=== PATIENT | female | born 2000 | race Caucasian/White ===

== ENCOUNTER 2018-01-23 20:50 | Emergency (ER) | payer OTHER ==
[2018-01-23] MEDS ORDERED: SODIUM CHLORIDE 0.9% 1,000 ML IV STA ×2 (22:29)
[2018-01-23] MEDS ORDERED: cefTRIAXone IN SWFI 1,000 MG/10 ML SYRINGE IVP STA (22:31)
[2018-01-23 22:40] LABS: Appearance,Urine Turbid (Clear); Bacteria,Urine Many /hpf; Bilirubin,Urine Negative (Negative); Blood,Urine Moderate (Negative); Color,Urine Yellow; Glucose,Urine (UA) 4+ (Negative); Ketones,Urine Trace (Negative); Leukocyte Esterase,Urine Large (Negative); Mucus,Urine Rare /hpf; Nitrite,Urine Negative (Negative); PH, Urine 6.5 (5.0-8.0); Protein,Urine 2+ (Negative); RBC,Urine 144 /hpf (0-5); Specific Gravity,Urine 1.023 (1.001-1.035); Squamous Epithelial Cell,Urine 19 /hpf (0-4); WBC,Urine >182 /hpf (0-5)
[2018-01-23 23:05] LABS: Basophils % (A) 0 %; Eosinophils # (A) 0.1 k/uL (0-0.7); Eosinophils % (A) 1 %; HCT 39.8 % (34.0-46.0); HGB 13.3 gm/dL (11.4-16.0); Lymphocytes # (A) 2.7 k/uL (1.0-4.8); Lymphocytes % (A) 31 %; MCH 30.4 pg (25.0-35.0); MCHC 33.3 g/dL (31.0-37.0); MCV 91.3 fL (80.0-100.0); Mean Platelet Volume 6.6; Monocytes # (A) 0.6 k/uL (0-1.0); Monocytes % (A) 7 %; Neutrophils # (A) 5.1 k/uL (1.3-7.7); Neutrophils % (A) 59 %; Platelet Count 424 k/uL (150-450); RBC 4.36 m/uL (3.80-5.40); RDW 13.2 % (11.5-15.5); WBC 8.7 k/uL (4.0-11.0)
[2018-01-23 23:16] LABS: INR 0.9 (<1.2); Partial Thromboplastin Time 24.5 sec (22.0-30.0); Prothrombin Time 9.3 sec (9.0-12.0)
[2018-01-23 23:19] LABS: ALT 30 U/L (9-52); AST 21 U/L (14-36); Alkaline Phosphatase 126 U/L (38-126); Amylase 48 U/L (30-110); Anion Gap 14 mmol/L; Blood Urea Nitrogen 14 mg/dL (7-17); Carbon Dioxide 23 mmol/L (22-30); Chloride 104 mmol/L (98-107); Glucose 67 mg/dL (74-99); Lipase 62 U/L (23-300); Potassium 3.7 mmol/L (3.5-5.1); Sodium 141 mmol/L (137-145); Total Bilirubin 0.3 mg/dL (0.2-1.3); Total Protein 6.8 g/dL (6.3-8.2)
--- NOTE | 2018-01-23 23:32 | ED ---
Female Urogenital HPI - General Chief complaint: Urogenital Stated complaint: kidney pain Time Seen by Provider: 01/23/18 21:52 Source: patient, RN notes reviewed, old records reviewed Mode of arrival: ambulatory Limitations: no limitations - History of Present Illness Initial comments: Is a 17-year-old female with a history of type one diabetes presents and emergency department today with CC of dysuria. She reports fever And chills. She takes Motrin prior to arrival. She does report some back pain. Patient Denies the nausea or vomiting. Her blood sugar has been mildly elevated. - Related Data Home Medications Medication Instructions Recorded Confirmed Acetaminophen Tab [Tylenol Tab] 325 mg PO Q4H PRN 01/23/18 01/23/18 Ibuprofen [Motrin Ib] 600 mg PO TID PRN 01/23/18 01/23/18 Insulin Aspart (Niacinamide) 20 - 30 unit SQ TID-W/MEALS 01/23/18 01/23/18 [Fiasp 100 Unit/ml Flextouch] Insulin Degludec [Tresiba 30 unit SQ HS 01/23/18 01/23/18 Flextouch U-100] Previous Rx's Medication Instructions Recorded Phenazopyridine [Pyridium] 200 mg PO TID #9 tablet 01/23/18 Sulfamethox-Tmp 800-160Mg [Bactrim 1 tab PO Q12HR #28 tab 01/23/18 DS 800-160 mg] Allergies Allergy/AdvReac Type Severity Reaction Status Date / Time No Known Allergies Allergy Verified 01/23/18 22:12 Review of Systems ROS Statement: Those systems with pertinent positive or pertinent negative responses have been documented in the HPI. ROS Other: All systems not noted in ROS Statement are negative. Past Medical History Past Medical History: Diabetes Mellitus History of Any Multi-Drug Resistant Organisms: None Reported Past Surgical History: No Surgical Hx Reported Past Psychological History: No Psychological Hx Reported Smoking Status: Never smoker Past Alcohol Use History: None Reported Past Drug Use History: None Reported General Exam - General Exam Comments Initial Comments: This is a pleasant 17 year old female, no distress. Limitations: no limitations General appearance: alert, in no apparent distress Head exam: Present: atraumatic, normocephalic, normal inspection Eye exam: Present: normal appearance, PERRL, EOMI. Absent: scleral icterus, conjunctival injection, periorbital swelling ENT exam: Present: normal exam, mucous membranes moist Neck exam: Present: normal inspection. Absent: tenderness, meningismus, lymphadenopathy Respiratory exam: Present: normal lung sounds bilaterally. Absent: respiratory distress, wheezes, rales, rhonchi, stridor Cardiovascular Exam: Present: regular rate, normal rhythm, normal heart sounds. Absent: systolic murmur, diastolic murmur, rubs, gallop, clicks GI/Abdominal exam: Present: soft, tenderness (suprapubic), normal bowel sounds. Absent: distended, guarding, rebound, rigid Extremities exam: Present: normal inspection, full ROM, normal capillary refill. Absent: tenderness, pedal edema, joint swelling, calf tenderness Back exam: Present: normal inspection, CVA tenderness (R) Psychiatric exam: Present: normal affect, normal mood Skin exam: Present: warm, dry, intact, normal color. Absent: rash Course Vital Signs 01/23/18 01/23/18 21:07 23:51 Temperature 99.1 F 97.9 F Pulse Rate 127 H 108 H Respiratory 18 16 Rate Blood Pressure 159/100 150/75 O2 Sat by Pulse 99 99 Oximetry Medical Decision Making - Medical Decision Making 17-year-old type one diabetic presents with chief of dysuria. She does have fever and chills, complains of back pain. Lab work obtain. Blood culture in urine culture completed. UAs positive UTI. Patient given 2 g of Rocephin. White blood cell count is normal. Patient informed I will discharge her with a prescription for Bactrim for UTI. I discussed she must take all of the anabiotic 's. Discuss with me type one diabetic she could be at risk for worse infection, discussed return parameters. - Lab Data Result diagrams: 01/23/18 22:43 01/23/18 22:43 Lab Results 01/23/18 01/23/18 01/23/18 Range/Units 22:15 22:15 22:43 WBC (4.0-11.0) k/uL RBC (3.80-5.40) m/uL Hgb (11.4-16.0) gm/dL Hct (34.0-46.0) % MCV (80.0-100.0) fL MCH (25.0-35.0) pg MCHC (31.0-37.0) g/dL RDW (11.5-15.5) % Plt Count (150-450) k/uL Neutrophils % % Lymphocytes % % Monocytes % % Eosinophils % % Basophils % % Neutrophils # (1.3-7.7) k/uL Lymphocytes # (1.0-4.8) k/uL Monocytes # (0-1.0) k/uL Eosinophils # (0-0.7) k/uL Basophils # (0-0.2) k/uL PT (9.0-12.0) sec INR (<1.2) APTT (22.0-30.0) sec Sodium 141 (137-145) mmol/L Potassium 3.7 (3.5-5.1) mmol/L Chloride 104 (98-107) mmol/L Carbon Dioxide 23 (22-30) mmol/L Anion Gap 14 mmol/L BUN 14 (7-17) mg/dL Creatinine 0.60 (0.52-1.04) mg/dL Est GFR (CKD-EPI)AfAm >90 (>60 ml/min/1.73 sqM) Est GFR (CKD-EPI)NonAf >90 (>60 ml/min/1.73 sqM) Glucose 67 L (74-99) mg/dL Calcium 10.0 (8.4-10.2) mg/dL Total Bilirubin 0.3 (0.2-1.3) mg/dL AST 21 (14-36) U/L ALT 30 (9-52) U/L Alkaline Phosphatase 126 (38-126) U/L Total Protein 6.8 (6.3-8.2) g/dL Albumin 4.0 (3.5-5.0) g/dL Amylase 48 (30-110) U/L Lipase 62 (23-300) U/L Urine Color Yellow Urine Appearance Turbid H (Clear) Urine pH 6.5 (5.0-8.0) Ur Specific [place] 1.023 (1.001-1.035) Urine Protein 2+ H (Negative) Urine Glucose (UA) 4+ H (Negative) Urine Ketones Trace H (Negative) Urine Blood Moderate H (Negative) Urine Nitrite Negative (Negative) Urine Bilirubin Negative (Negative) Urine Urobilinogen 2.0 (<2.0) mg/dL Ur Leukocyte Esterase Large H (Negative) Urine RBC 144 H (0-5) /hpf Urine WBC >182 H (0-5) /hpf Urine WBC Clumps Many H (None) /hpf Ur Squamous Epith Cells 19 H (0-4) /hpf Urine Bacteria Many H (None) /hpf Urine Mucus Rare H (None) /hpf Urine HCG, Qual Not Detected (Not Detectd) 01/23/18 01/23/18 Range/Units 22:43 22:43 WBC 8.7 (4.0-11.0) k/uL RBC 4.36 (3.80-5.40) m/uL Hgb 13.3 (11.4-16.0) gm/dL Hct 39.8 (34.0-46.0) % MCV 91.3 (80.0-100.0) fL MCH 30.4 (25.0-35.0) pg MCHC 33.3 (31.0-37.0) g/dL RDW 13.2 (11.5-15.5) % Plt Count 424 (150-450) k/uL Neutrophils % 59 % Lymphocytes % 31 % Monocytes % 7 % Eosinophils % 1 % Basophils % 0 % Neutrophils # 5.1 (1.3-7.7) k/uL Lymphocytes # 2.7 (1.0-4.8) k/uL Monocytes # 0.6 (0-1.0) k/uL Eosinophils # 0.1 (0-0.7) k/uL Basophils # 0.0 (0-0.2) k/uL PT 9.3 (9.0-12.0) sec INR 0.9 (<1.2) APTT 24.5 (22.0-30.0) sec Sodium (137-145) mmol/L Potassium (3.5-5.1) mmol/L Chloride (98-107) mmol/L Carbon Dioxide (22-30) mmol/L Anion Gap mmol/L BUN (7-17) mg/dL Creatinine (0.52-1.04) mg/dL Est GFR (CKD-EPI)AfAm (>60 ml/min/1.73 sqM) Est GFR (CKD-EPI)NonAf (>60 ml/min/1.73 sqM) Glucose (74-99) mg/dL Calcium (8.4-10.2) mg/dL Total Bilirubin (0.2-1.3) mg/dL AST (14-36) U/L ALT (9-52) U/L Alkaline Phosphatase (38-126) U/L Total Protein (6.3-8.2) g/dL Albumin (3.5-5.0) g/dL Amylase (30-110) U/L Lipase (23-300) U/L Urine Color Urine Appearance (Clear) Urine pH (5.0-8.0) Ur Specific [place] (1.001-1.035) Urine Protein (Negative) Urine Glucose (UA) (Negative) Urine Ketones (Negative) Urine Blood (Negative) Urine Nitrite (Negative) Urine Bilirubin (Negative) Urine Urobilinogen (<2.0) mg/dL Ur Leukocyte Esterase (Negative) Urine RBC (0-5) /hpf Urine WBC (0-5) /hpf Urine WBC Clumps (None) /hpf Ur Squamous Epith Cells (0-4) /hpf Urine Bacteria (None) /hpf Urine Mucus (None) /hpf Urine HCG, Qual (Not Detectd) Disposition Clinical Impression: UTI (urinary tract infection) Disposition: HOME SELF-CARE Condition: Good Instructions: Urinary Tract Infection in Women (ED) Additional Instructions: Patient advised to follow-up with primary care provider. If any worsening signs or symptoms occur, Patient must return for reevaluation. Take antibiotics as prescribed. Prescriptions: Phenazopyridine [Pyridium] 200 mg PO TID #9 tablet Sulfamethox-Tmp 800-160Mg [Bactrim DS 800-160 mg] 1 tab PO Q12HR #28 tab Is patient prescribed a controlled substance at d/c from ED?: No When asked, does pt state using other controlled substances?: No If prescribed controlled substance>3 days was MAPS reviewed?: No If opioid is for acute pain is fill amount 7 days or less?: No If Rx opioid, was Start Talking consent form obtained?: No Referrals: Kathy Feliciano MD [Primary Care Provider] - 1-2 days Time of Disposition: 23:23
[2018-01-23 23:52] VITALS: BP 150/75; PULSE 108; RESP 16; TEMP 97.9
== END 2018-01-23 23:54 | disposition home or self-care (01) ==
LOC: EC 20:50
DX: N39.0 Urinary tract infection, site not specified (principal); E10.65 Type 1 diabetes mellitus with hyperglycemia; Z79.4 Long term (current) use of insulin
CPT/HCPCS: 36415; 80053; 82150; 83690; 85025; 85610; 85730; 81001; 81025; 87086; 99284; 96374; 96361; J0696

== ENCOUNTER 2018-03-19 13:55 | Emergency (ER) | payer OTHER ==
[2018-03-19 14:07] LABS: Glucose,Whole Blood 165 mg/dL (75-99)
[2018-03-19] MEDS ORDERED: SODIUM CHLORIDE 0.9% 500 ML IV STA ×2 (14:19→14:55)
[2018-03-19] MEDS ORDERED: SODIUM CHLORIDE 0.9% 1,000 ML IV STA (14:19)
--- NOTE | 2018-03-19 14:27 | ED ---
General Adult HPI - General Chief complaint: Recheck/Abnormal Lab/Rx Stated complaint: near syncope Time Seen by Provider: 03/19/18 14:14 Source: patient, family, RN notes reviewed Mode of arrival: wheelchair Limitations: no limitations - History of Present Illness Initial comments: Patient is a pleasant 17-year-old female presenting to the emergency department for near syncopal episode. Patient has not been eating yet today. Patient was at work over top of the warmer for around a minute that did feel warm. Following this patient felt like she was about to pass out. Patient felt warm all over and nauseated and almost had tunnel vision. Patient states if symptoms worsen she would be afraid that she may pass out. Symptoms have resolved and symptom-free at this time. No history of similar symptoms previously. No chest pain or difficulty in breathing. No abdominal pain or possible . - Related Data Home Medications Medication Instructions Recorded Confirmed Acetaminophen Tab [Tylenol Tab] 325 mg PO Q4H PRN 01/23/18 03/19/18 Ibuprofen [Motrin Ib] 600 mg PO TID PRN 01/23/18 03/19/18 Insulin Aspart (Niacinamide) 20 - 30 unit SQ TID-W/MEALS 01/23/18 03/19/18 [Fiasp 100 Unit/ml Flextouch] Insulin Degludec [Tresiba 30 unit SQ HS 01/23/18 03/19/18 Flextouch U-100] Allergies Allergy/AdvReac Type Severity Reaction Status Date / Time No Known Allergies Allergy Verified 03/19/18 13:59 Review of Systems ROS Statement: Those systems with pertinent positive or pertinent negative responses have been documented in the HPI. ROS Other: All systems not noted in ROS Statement are negative. Constitutional: Denies: fever Eyes: Denies: eye pain ENT: Denies: ear pain Respiratory: Denies: cough Cardiovascular: Denies: chest pain Endocrine: Denies: fatigue Gastrointestinal: Denies: abdominal pain Genitourinary: Denies: dysuria Musculoskeletal: Denies: back pain Skin: Denies: rash Neurological: Denies: headache, weakness Past Medical History Past Medical History: Diabetes Mellitus History of Any Multi-Drug Resistant Organisms: None Reported Past Surgical History: No Surgical Hx Reported Past Psychological History: No Psychological Hx Reported Smoking Status: Never smoker Past Alcohol Use History: None Reported Past Drug Use History: None Reported General Exam Limitations: no limitations General appearance: alert, in no apparent distress Head exam: Present: atraumatic Eye exam: Present: normal appearance, PERRL, EOMI. Absent: nystagmus ENT exam: Present: normal oropharynx Neck exam: Present: normal inspection Respiratory exam: Present: normal lung sounds bilaterally Cardiovascular Exam: Present: tachycardia Expanded Peripheral pulses: 2+: Radial (R), Radial (L), Dorsalis Pedis (R), Dorsalis Pedis (L) GI/Abdominal exam: Present: soft. Absent: distended, tenderness Extremities exam: Present: normal inspection. Absent: pedal edema, calf tenderness Neurological exam: Present: alert, CN II-XII intact. Absent: motor sensory deficit Expanded Neurological exam: Present: protecting the airway Patient oriented to: Present: person, place, time Speech: Present: fluid speech Cranial nerves: EOM's Intact: Normal, Facial Sensation: Normal Sensory exam: Upper Extremity Light Touch: Normal, Lower Extremity Light Touch: Normal Motor strength exam: RUE: 5, LUE: 5, RLE: 5, LLE: 5 Eye Response: (4) open spontaneously Motor Response: (6) obeys commands Verbal Response: (5) oriented Psychiatric exam: Present: normal affect, normal mood Skin exam: Present: normal color Course Vital Signs 03/19/18 03/19/18 13:59 14:45 Temperature 98.5 F Pulse Rate 124 H Pulse Rate [ 113 H Sitting] Pulse Rate [ 133 H Standing] Pulse Rate [ 114 H Supine] Respiratory 18 Rate Blood Pressure 110/78 Blood Pressure 125/75 [Sitting] Blood Pressure 126/74 [Standing] Blood Pressure 118/76 [Supine] O2 Sat by Pulse 99 Oximetry - Reevaluation(s) Reevaluation #1: 03/19/18 15:19 Repeat EKG shows sinus tachycardia 111. MO 96. QRS 84. QT 478. QTC 650. Normal axis. Normal QRS. Nonspecific T waves. EKG Findings - EKG Comments: EKG Findings:: Sinus tachycardia 127. MO 96. QRS 84. QT 416. QTC 604. Normal axis. Normal QRS. No acute ST change. Medical Decision Making - Medical Decision Making Case discussed with Dr. Cage from cardiology including EKG results. He is comfortable with discharge and follow-up. Patient reevaluated and resting comfortably in bed. Heart rate 112. Patient and family updated on results and need for follow-up. Specifically updated on mild elevation of liver enzymes and need for follow-up with primary care physician with that. Also updated on need to follow-up with cardiology for QTc. - Lab Data Result diagrams: 03/19/18 14:35 03/19/18 14:35 Lab Results 03/19/18 03/19/18 03/19/18 Range/Units 14:04 14:35 14:35 WBC 9.9 (4.0-11.0) k/uL RBC 4.93 (3.80-5.40) m/uL Hgb 14.3 (11.4-16.0) gm/dL Hct 43.4 (34.0-46.0) % MCV 87.9 (80.0-100.0) fL MCH 29.0 (25.0-35.0) pg MCHC 32.9 (31.0-37.0) g/dL RDW 14.4 (11.5-15.5) % Plt Count 448 (150-450) k/uL Neutrophils % 63 % Lymphocytes % 29 % Monocytes % 4 % Eosinophils % 1 % Basophils % 1 % Neutrophils # 6.2 (1.3-7.7) k/uL Lymphocytes # 2.8 (1.0-4.8) k/uL Monocytes # 0.4 (0-1.0) k/uL Eosinophils # 0.1 (0-0.7) k/uL Basophils # 0.1 (0-0.2) k/uL PT (9.0-12.0) sec INR (<1.2) APTT (22.0-30.0) sec D-Dimer (<0.60) mg/L FEU Sodium (137-145) mmol/L Potassium (3.5-5.1) mmol/L Chloride (98-107) mmol/L Carbon Dioxide (22-30) mmol/L Anion Gap mmol/L BUN (7-17) mg/dL Creatinine (0.52-1.04) mg/dL Est GFR (CKD-EPI)AfAm (>60 ml/min/1.73 sqM) Est GFR (CKD-EPI)NonAf (>60 ml/min/1.73 sqM) Glucose (74-99) mg/dL POC Glucose (mg/dL) 165 H (75-99) mg/dL POC Glu Shoe Repairer Helper ID [place] Calcium (8.4-10.2) mg/dL Magnesium (1.6-2.3) mg/dL Total Bilirubin (0.2-1.3) mg/dL AST (14-36) U/L ALT (9-52) U/L Alkaline Phosphatase (38-126) U/L Total Creatine Kinase <20 L (30-135) U/L CK-MB (CK-2) <0.2 (0.0-2.4) ng/mL CK-MB (CK-2) Rel Index Troponin I <0.012 (0.000-0.034) ng/mL Total Protein (6.3-8.2) g/dL Albumin (3.5-5.0) g/dL Urine Color Urine Appearance (Clear) Urine pH (5.0-8.0) Ur Specific [place] (1.001-1.035) Urine Protein (Negative) Urine Glucose (UA) (Negative) Urine Blood (Negative) Urine Nitrite (Negative) Urine Bilirubin (Negative) Urine Urobilinogen (<2.0) mg/dL Ur Leukocyte Esterase (Negative) Urine RBC (0-5) /hpf Urine WBC (0-5) /hpf Ur Squamous Epith Cells (0-4) /hpf Urine Bacteria (None) /hpf Hyaline Casts (0-2) /lpf Urine Mucus (None) /hpf Urine HCG, Qual (Not Detectd) 03/19/18 03/19/18 03/19/18 Range/Units 14:35 14:35 14:37 WBC (4.0-11.0) k/uL RBC (3.80-5.40) m/uL Hgb (11.4-16.0) gm/dL Hct (34.0-46.0) % MCV (80.0-100.0) fL MCH (25.0-35.0) pg MCHC (31.0-37.0) g/dL RDW (11.5-15.5) % Plt Count (150-450) k/uL Neutrophils % % Lymphocytes % % Monocytes % % Eosinophils % % Basophils % % Neutrophils # (1.3-7.7) k/uL Lymphocytes # (1.0-4.8) k/uL Monocytes # (0-1.0) k/uL Eosinophils # (0-0.7) k/uL Basophils # (0-0.2) k/uL PT 9.8 (9.0-12.0) sec INR 1.0 (<1.2) APTT 23.7 (22.0-30.0) sec D-Dimer 0.19 (<0.60) mg/L FEU Sodium 136 L (137-145) mmol/L Potassium 3.8 (3.5-5.1) mmol/L Chloride 98 (98-107) mmol/L Carbon Dioxide 21 L (22-30) mmol/L Anion Gap 17 mmol/L BUN 15 (7-17) mg/dL Creatinine 0.60 (0.52-1.04) mg/dL Est GFR (CKD-EPI)AfAm >90 (>60 ml/min/1.73 sqM) Est GFR (CKD-EPI)NonAf >90 (>60 ml/min/1.73 sqM) Glucose 137 H (74-99) mg/dL POC Glucose (mg/dL) 139 H (75-99) mg/dL POC Glu Shoe Repairer Helper ID Calcium 10.8 H (8.4-10.2) mg/dL Magnesium 1.8 (1.6-2.3) mg/dL Total Bilirubin 0.8 (0.2-1.3) mg/dL AST 44 H (14-36) U/L ALT 56 H (9-52) U/L Alkaline Phosphatase 218 H (38-126) U/L Total Creatine Kinase (30-135) U/L CK-MB (CK-2) (0.0-2.4) ng/mL CK-MB (CK-2) Rel Index Troponin I (0.000-0.034) ng/mL Total Protein 8.1 (6.3-8.2) g/dL Albumin 4.8 (3.5-5.0) g/dL Urine Color Urine Appearance (Clear) Urine pH (5.0-8.0) Ur Specific [place] (1.001-1.035) Urine Protein (Negative) Urine Glucose (UA) (Negative) Urine Blood (Negative) Urine Nitrite (Negative) Urine Bilirubin (Negative) Urine Urobilinogen (<2.0) mg/dL Ur Leukocyte Esterase (Negative) Urine RBC (0-5) /hpf Urine WBC (0-5) /hpf Ur Squamous Epith Cells (0-4) /hpf Urine Bacteria (None) /hpf Hyaline Casts (0-2) /lpf Urine Mucus (None) /hpf Urine HCG, Qual (Not Detectd) 03/19/18 03/19/18 03/19/18 Range/Units 15:32 15:32 16:16 WBC (4.0-11.0) k/uL RBC (3.80-5.40) m/uL Hgb (11.4-16.0) gm/dL Hct (34.0-46.0) % MCV (80.0-100.0) fL MCH (25.0-35.0) pg MCHC (31.0-37.0) g/dL RDW (11.5-15.5) % Plt Count (150-450) k/uL Neutrophils % % Lymphocytes % % Monocytes % % Eosinophils % % Basophils % % Neutrophils # (1.3-7.7) k/uL Lymphocytes # (1.0-4.8) k/uL Monocytes # (0-1.0) k/uL Eosinophils # (0-0.7) k/uL Basophils # (0-0.2) k/uL PT (9.0-12.0) sec INR (<1.2) APTT (22.0-30.0) sec D-Dimer (<0.60) mg/L FEU Sodium (137-145) mmol/L Potassium (3.5-5.1) mmol/L Chloride (98-107) mmol/L Carbon Dioxide (22-30) mmol/L Anion Gap mmol/L BUN (7-17) mg/dL Creatinine (0.52-1.04) mg/dL Est GFR (CKD-EPI)AfAm (>60 ml/min/1.73 sqM) Est GFR (CKD-EPI)NonAf (>60 ml/min/1.73 sqM) Glucose (74-99) mg/dL POC Glucose (mg/dL) 58 L (75-99) mg/dL POC Glu Shoe Repairer Helper ID Alicia Thao Calcium (8.4-10.2) mg/dL Magnesium (1.6-2.3) mg/dL Total Bilirubin (0.2-1.3) mg/dL AST (14-36) U/L ALT (9-52) U/L Alkaline Phosphatase (38-126) U/L Total Creatine Kinase (30-135) U/L CK-MB (CK-2) (0.0-2.4) ng/mL CK-MB (CK-2) Rel Index Troponin I (0.000-0.034) ng/mL Total Protein (6.3-8.2) g/dL Albumin (3.5-5.0) g/dL Urine Color Yellow Urine Appearance Cloudy H (Clear) Urine pH 5.0 (5.0-8.0) Ur Specific [place] 1.024 (1.001-1.035) Urine Protein Trace H (Negative) Urine Glucose (UA) 4+ H (Negative) Urine Blood Negative (Negative) Urine Nitrite Negative (Negative) Urine Bilirubin Negative (Negative) Urine Urobilinogen <2.0 (<2.0) mg/dL Ur Leukocyte Esterase Moderate H (Negative) Urine RBC 3 (0-5) /hpf Urine WBC 17 H (0-5) /hpf Ur Squamous Epith Cells 19 H (0-4) /hpf Urine Bacteria Rare H (None) /hpf Hyaline Casts 20 H (0-2) /lpf Urine Mucus Rare H (None) /hpf Urine HCG, Qual Not Detected (Not Detectd) - Radiology Data Radiology results: report reviewed (X-ray reported as no acute process) Disposition Clinical Impression: Near syncope Disposition: HOME SELF-CARE Condition: Stable Instructions: Near Syncope (ED) Additional Instructions: Please follow-up with primary care physician in the next day or 2 for recheck. Have primary care physician review EKG as well as liver enzymes. Please also follow-up with cardiology, number provided. Return for feeling like your going to pass out, passing out, increased heart rate, difficulty breathing, pain, worsening symptoms or other concerns. Is patient prescribed a controlled substance at d/c from ED?: No Referrals: Kathy Feliciano MD [Primary Care Provider] - 1-2 days Cierra Hickey MD [STAFF PHYSICIAN] - 1-2 days Colby Cage MD [STAFF PHYSICIAN] - 1-2 days Time of Disposition: 16:29
[2018-03-19 14:43] LABS: Glucose,Whole Blood 139 mg/dL (75-99)
[2018-03-19 14:59] LABS: ALT 56 U/L (9-52); AST 44 U/L (14-36); Albumin 4.8 g/dL (3.5-5.0); Alkaline Phosphatase 218 U/L (38-126); Anion Gap 17 mmol/L; Blood Urea Nitrogen 15 mg/dL (7-17); Calcium 10.8 mg/dL (8.4-10.2); Carbon Dioxide 21 mmol/L (22-30); Chloride 98 mmol/L (98-107); Glucose 137 mg/dL (74-99); Magnesium 1.8 mg/dL (1.6-2.3); Potassium 3.8 mmol/L (3.5-5.1); Sodium 136 mmol/L (137-145); Total Bilirubin 0.8 mg/dL (0.2-1.3); Total Protein 8.1 g/dL (6.3-8.2)
[2018-03-19 15:00] LABS: Basophils # (A) 0.1 k/uL (0-0.2); Basophils % (A) 1 %; Eosinophils # (A) 0.1 k/uL (0-0.7); Eosinophils % (A) 1 %; HCT 43.4 % (34.0-46.0); HGB 14.3 gm/dL (11.4-16.0); Lymphocytes # (A) 2.8 k/uL (1.0-4.8); Lymphocytes % (A) 29 %; MCHC 32.9 g/dL (31.0-37.0); MCV 87.9 fL (80.0-100.0); Mean Platelet Volume 6.5; Monocytes # (A) 0.4 k/uL (0-1.0); Monocytes % (A) 4 %; Neutrophils # (A) 6.2 k/uL (1.3-7.7); Neutrophils % (A) 63 %; Platelet Count 448 k/uL (150-450); RBC 4.93 m/uL (3.80-5.40); RDW 14.4 % (11.5-15.5); WBC 9.9 k/uL (4.0-11.0)
[2018-03-19 15:05] LABS: D-Dimer 0.19 mg/L FEU (<0.60); Partial Thromboplastin Time 23.7 sec (22.0-30.0); Prothrombin Time 9.8 sec (9.0-12.0)
[2018-03-19 15:09] LABS: Creatine Kinase <20 U/L (30-135)
[2018-03-19 15:22] LABS: Creatine Kinase MB <0.2 ng/mL (0.0-2.4); Troponin I <0.012 ng/mL (0.000-0.034)
[2018-03-19 16:03] LABS: Appearance,Urine Cloudy (Clear); Bacteria,Urine Rare /hpf; Bilirubin,Urine Negative (Negative); Blood,Urine Negative (Negative); Color,Urine Yellow; Glucose,Urine (UA) 4+ (Negative); Hyaline Casts,Urine 20 /lpf (0-2); Leukocyte Esterase,Urine Moderate (Negative); Mucus,Urine Rare /hpf; Nitrite,Urine Negative (Negative); Protein,Urine Trace (Negative); RBC,Urine 3 /hpf (0-5); Specific Gravity,Urine 1.024 (1.001-1.035); Squamous Epithelial Cell,Urine 19 /hpf (0-4); Urobilinogen,Urine <2.0 mg/dL (<2.0); WBC,Urine 17 /hpf (0-5)
[2018-03-19 16:17] LABS: Glucose,Whole Blood 58 mg/dL (75-99)
--- NOTE | 2018-03-19 16:20 | XR ---
EXAMINATION TYPE: XR chest 2V DATE OF EXAM: 03/19/2018 CLINICAL HISTORY: Near syncope TECHNIQUE: Frontal and lateral views of the chest are obtained. COMPARISON: [facility] lateral chest radiograph 10/19/2010 FINDINGS: There is no focal air space opacity, pleural effusion, or pneumothorax seen. The cardiac silhouette size is within normal limits. The osseous structures are intact. Upper abdomen is within normal limits. IMPRESSION: No acute cardiopulmonary process. No significant interval change.
[2018-03-19 16:33] VITALS: RESP 20
[2018-03-19 16:45] LABS: Ketones,Urine 3+ (Negative)
[2018-03-19 16:45] LABS: Glucose,Whole Blood 81 mg/dL (75-99)
[2018-03-19 17:13] VITALS: BP 122/65; PULSE 117; TEMP 99.7
== END 2018-03-19 17:16 | disposition home or self-care (01) ==
LOC: EC 13:55
DX: R55 Syncope and collapse (principal); R74.8 Abnormal levels of other serum enzymes; R00.0 Tachycardia, unspecified; E11.9 Type 2 diabetes mellitus without complications; Z79.4 Long term (current) use of insulin
CPT/HCPCS: 36415; 71046; 80053; 81001; 81025; 82550; 82553; 83735; 84484; 85025; 85379; 85610; 85730; 93005; 96360; 96361; 99284

== ENCOUNTER 2018-08-12 11:12 | Inpatient (IN) | payer OTHER ==
[2018-08-12 11:20] LABS: Glucose,Whole Blood >600 mg/dL (75-99)
[2018-08-12] MEDS ORDERED: ONDANSETRON 4 MG/2 ML VIAL IVP STA (11:44)
[2018-08-12] MEDS ORDERED: SODIUM CHLORIDE 0.9% 2,000 ML IV ONE (11:44)
[2018-08-12] MEDS ORDERED: ACETAMINOPHEN IV (For NPO) 1,000 MG in EMPTY BAG 1 BAG IVPB STA (11:44)
[2018-08-12] MEDS ORDERED: INSULIN REGULAR 100 UNIT/ML VIAL IV ONE (11:45)
--- NOTE | 2018-08-12 12:03 | ED ---
General Adult HPI - General Chief complaint: Nausea/Vomiting/Diarrhea Stated complaint: diabetic problem, weakness Time Seen by Provider: 08/12/18 11:15 Source: patient, RN notes reviewed Mode of arrival: ambulatory Limitations: no limitations - History of Present Illness Initial comments: This is a 17-year-old female presents emergency department with past medical history significant for diabetes. Mom states the patient vomiting since Tuesday and has a sugar over 500. Patient states she's also had some diarrhea as well. There's been no noted fever or temperature mom states patient has felt warm. Patient is not complaining of chest pain or difficulty breathing. Patient has no abdominal pain but is complaining of nausea. There is no headache no numbness or weakness. Patient denies any dysuria hematuria urinary frequency. - Related Data Home Medications Medication Instructions Recorded Confirmed Insulin Aspart [NovoLOG Flexpen] 1 - 6 units SQ AC-TID 08/12/18 08/12/18 Insulin Glargine,Hum.rec.anlog 30 units SQ HS 08/12/18 08/12/18 [Basaglar Kwikpen U-100] Zofran Unknown Dose 1 tab PO ONCE PRN 08/12/18 08/12/18 Allergies Allergy/AdvReac Type Severity Reaction Status Date / Time No Known Allergies Allergy Verified 08/12/18 12:08 Review of Systems ROS Statement: Those systems with pertinent positive or pertinent negative responses have been documented in the HPI. ROS Other: All systems not noted in ROS Statement are negative. Past Medical History Past Medical History: Diabetes Mellitus History of Any Multi-Drug Resistant Organisms: None Reported Past Surgical History: No Surgical Hx Reported Past Psychological History: No Psychological Hx Reported Smoking Status: Never smoker Past Alcohol Use History: None Reported Past Drug Use History: None Reported General Exam - General Exam Comments Initial Comments: GENERAL: Patient is well-developed and well-nourished. Patient is nontoxic and well- hydrated and is in moderate distress. ENT: Neck is soft and supple. No significant lymphadenopathy is noted. Oropharynx is clear. Dry mucous membranes. Neck has full range of motion without eliciting any pain. EYES: The sclera were anicteric and conjunctiva were pink and moist. Extraocular movements were intact and pupils were equal round and reactive to light. Eyelids were unremarkable. PULMONARY: Unlabored respirations. Good breath sounds bilaterally. No audible rales rhonchi or wheezing was noted. CARDIOVASCULAR: There is a regular rate and rhythm without any murmurs gallops or rubs. ABDOMEN: Soft and nontender with normal bowel sounds. SKIN: Skin is clear with no lesions or rashes and otherwise unremarkable. NEUROLOGIC: Patient is alert and oriented x3. Cranial nerves II through XII are grossly intact. Motor and sensory are also intact. Normal speech, volume and content. Symmetrical smile. MUSCULOSKELETAL: Normal extremities with adequate strength and full range of motion. LYMPHATICS: No significant lymphadenopathy is noted PSYCHIATRIC: Normal psychiatric evaluation. Limitations: no limitations Course Vital Signs 08/12/18 08/12/18 08/12/18 11:15 12:20 14:11 Temperature 100.9 F H 98.2 F Pulse Rate 138 H 125 H 131 H Respiratory 24 20 18 Rate Blood Pressure 124/90 162/105 150/98 O2 Sat by Pulse 99 99 99 Oximetry 08/12/18 15:44 Temperature Pulse Rate 125 H Respiratory 18 Rate Blood Pressure 141/98 O2 Sat by Pulse 100 Oximetry Medical Decision Making - Lab Data Result diagrams: 08/12/18 11:55 08/12/18 15:20 Lab Results 08/12/18 08/12/18 08/12/18 Range/Units 11:18 11:55 11:55 WBC 11.7 H (4.0-11.0) k/uL RBC 5.54 H (3.80-5.40) m/uL Hgb 16.1 H (11.4-16.0) gm/dL Hct 56.4 H (34.0-46.0) % MCV 101.9 H (80.0-100.0) fL MCH 29.1 (25.0-35.0) pg MCHC 28.6 L (31.0-37.0) g/dL RDW 13.9 (11.5-15.5) % Plt Count 482 H (150-450) k/uL Neutrophils % 87 % Lymphocytes % 8 % Monocytes % 3 % Eosinophils % 0 % Basophils % 0 % Neutrophils # 10.2 H (1.3-7.7) k/uL Lymphocytes # 0.9 L (1.0-4.8) k/uL Monocytes # 0.4 (0-1.0) k/uL Eosinophils # 0.0 (0-0.7) k/uL Basophils # 0.1 (0-0.2) k/uL Hypochromasia Marked Macrocytosis Slight Sample Site ABG pH (7.35-7.45) ABG pCO2 (35-45) mmHg ABG pO2 (83-108) mmHg ABG O2 Saturation (94-97) % Lloyd Test FiO2 % Sodium 136 L (137-145) mmol/L Potassium 6.4 H* (3.5-5.1) mmol/L Chloride 96 L (98-107) mmol/L Carbon Dioxide 6 L* (22-30) mmol/L Anion Gap 34 mmol/L BUN 26 H (7-17) mg/dL Creatinine 1.02 (0.52-1.04) mg/dL Est GFR (CKD-EPI)AfAm >90 (>60 ml/min/1.73 sqM) Est GFR (CKD-EPI)NonAf 80 (>60 ml/min/1.73 sqM) Glucose 751 H* (74-99) mg/dL POC Glucose (mg/dL) >600 H (75-99) mg/dL POC Glu [employer] ID Ernie Keating Lactic Ac Sepsis Rflx Plasma Lactic Acid Chriss (0.7-2.0) mmol/L Calcium 10.6 H (8.4-10.2) mg/dL Magnesium 2.8 H (1.6-2.3) mg/dL Total Bilirubin 0.4 (0.2-1.3) mg/dL AST 143 H (14-36) U/L ALT 64 H (9-52) U/L Alkaline Phosphatase 244 H (38-126) U/L Total Protein 9.1 H (6.3-8.2) g/dL Albumin 5.3 H (3.5-5.0) g/dL Urine Color Urine Appearance (Clear) Urine pH (5.0-8.0) Ur Specific [place] (1.001-1.035) Urine Protein (Negative) Urine Glucose (UA) (Negative) Urine Ketones (Negative) Urine Blood (Negative) Urine Nitrite (Negative) Urine Bilirubin (Negative) Urine Urobilinogen (<2.0) mg/dL Ur Leukocyte Esterase (Negative) Urine RBC (0-5) /hpf Urine WBC (0-5) /hpf Ur Squamous Epith Cells (0-4) /hpf Urine Bacteria (None) /hpf Urine Mucus (None) /hpf Acetone, Qual Positive (Negative) Influenza Type A RNA (Not Detectd) Influenza Type B (PCR) (Not Detectd) 08/12/18 08/12/18 08/12/18 Range/Units 11:55 12:09 12:50 WBC (4.0-11.0) k/uL RBC (3.80-5.40) m/uL Hgb (11.4-16.0) gm/dL Hct (34.0-46.0) % MCV (80.0-100.0) fL MCH (25.0-35.0) pg MCHC (31.0-37.0) g/dL RDW (11.5-15.5) % Plt Count (150-450) k/uL Neutrophils % % Lymphocytes % % Monocytes % % Eosinophils % % Basophils % % Neutrophils # (1.3-7.7) k/uL Lymphocytes # (1.0-4.8) k/uL Monocytes # (0-1.0) k/uL Eosinophils # (0-0.7) k/uL Basophils # (0-0.2) k/uL Hypochromasia Macrocytosis Sample Site ABG pH (7.35-7.45) ABG pCO2 (35-45) mmHg ABG pO2 (83-108) mmHg ABG O2 Saturation (94-97) % Lloyd Test FiO2 % Sodium (137-145) mmol/L Potassium (3.5-5.1) mmol/L Chloride (98-107) mmol/L Carbon Dioxide (22-30) mmol/L Anion Gap mmol/L BUN (7-17) mg/dL Creatinine (0.52-1.04) mg/dL Est GFR (CKD-EPI)AfAm (>60 ml/min/1.73 sqM) Est GFR (CKD-EPI)NonAf (>60 ml/min/1.73 sqM) Glucose (74-99) mg/dL POC Glucose (mg/dL) >600 H (75-99) mg/dL POC Glu [employer] ID Tsering Kebede Ac Sepsis Rflx Plasma Lactic Acid Chriss 4.0 H* (0.7-2.0) mmol/L Calcium (8.4-10.2) mg/dL Magnesium (1.6-2.3) mg/dL Total Bilirubin (0.2-1.3) mg/dL AST (14-36) U/L ALT (9-52) U/L Alkaline Phosphatase (38-126) U/L Total Protein (6.3-8.2) g/dL Albumin (3.5-5.0) g/dL Urine Color Colorless Urine Appearance Clear (Clear) Urine pH 5.0 (5.0-8.0) Ur Specific [place] 1.022 (1.001-1.035) Urine Protein 1+ H (Negative) Urine Glucose (UA) 4+ H (Negative) Urine Ketones 4+ H (Negative) Urine Blood Negative (Negative) Urine Nitrite Negative (Negative) Urine Bilirubin Negative (Negative) Urine Urobilinogen <2.0 (<2.0) mg/dL Ur Leukocyte Esterase Negative (Negative) Urine RBC <1 (0-5) /hpf Urine WBC 1 (0-5) /hpf Ur Squamous Epith Cells 1 (0-4) /hpf Urine Bacteria Rare H (None) /hpf Urine Mucus Rare H (None) /hpf Acetone, Qual (Negative) Influenza Type A RNA (Not Detectd) Influenza Type B (PCR) (Not Detectd) 08/12/18 08/12/18 08/12/18 Range/Units 12:55 13:17 13:21 WBC (4.0-11.0) k/uL RBC (3.80-5.40) m/uL Hgb (11.4-16.0) gm/dL Hct (34.0-46.0) % MCV (80.0-100.0) fL MCH (25.0-35.0) pg MCHC (31.0-37.0) g/dL RDW (11.5-15.5) % Plt Count (150-450) k/uL Neutrophils % % Lymphocytes % % Monocytes % % Eosinophils % % Basophils % % Neutrophils # (1.3-7.7) k/uL Lymphocytes # (1.0-4.8) k/uL Monocytes # (0-1.0) k/uL Eosinophils # (0-0.7) k/uL Basophils # (0-0.2) k/uL Hypochromasia Macrocytosis Sample Site ABG pH (7.35-7.45) ABG pCO2 (35-45) mmHg ABG pO2 (83-108) mmHg ABG O2 Saturation (94-97) % Lloyd Test FiO2 % Sodium (137-145) mmol/L Potassium (3.5-5.1) mmol/L Chloride (98-107) mmol/L Carbon Dioxide (22-30) mmol/L Anion Gap mmol/L BUN (7-17) mg/dL Creatinine (0.52-1.04) mg/dL Est GFR (CKD-EPI)AfAm (>60 ml/min/1.73 sqM) Est GFR (CKD-EPI)NonAf (>60 ml/min/1.73 sqM) Glucose (74-99) mg/dL POC Glucose (mg/dL) 515 H (75-99) mg/dL POC Glu [employer] ID Hong Munguia Lactic Ac Sepsis Rflx Y Plasma Lactic Acid Chriss (0.7-2.0) mmol/L Calcium (8.4-10.2) mg/dL Magnesium (1.6-2.3) mg/dL Total Bilirubin (0.2-1.3) mg/dL AST (14-36) U/L ALT (9-52) U/L Alkaline Phosphatase (38-126) U/L Total Protein (6.3-8.2) g/dL Albumin (3.5-5.0) g/dL Urine Color Urine Appearance (Clear) Urine pH (5.0-8.0) Ur Specific [place] (1.001-1.035) Urine Protein (Negative) Urine Glucose (UA) (Negative) Urine Ketones (Negative) Urine Blood (Negative) Urine Nitrite (Negative) Urine Bilirubin (Negative) Urine Urobilinogen (<2.0) mg/dL Ur Leukocyte Esterase (Negative) Urine RBC (0-5) /hpf Urine WBC (0-5) /hpf Ur Squamous Epith Cells (0-4) /hpf Urine Bacteria (None) /hpf Urine Mucus (None) /hpf Acetone, Qual (Negative) Influenza Type A RNA Detected H (Not Detectd) Influenza Type B (PCR) Not Detected (Not Detectd) 08/12/18 08/12/18 08/12/18 Range/Units 14:04 14:25 15:20 WBC (4.0-11.0) k/uL RBC (3.80-5.40) m/uL Hgb (11.4-16.0) gm/dL Hct (34.0-46.0) % MCV (80.0-100.0) fL MCH (25.0-35.0) pg MCHC (31.0-37.0) g/dL RDW (11.5-15.5) % Plt Count (150-450) k/uL Neutrophils % % Lymphocytes % % Monocytes % % Eosinophils % % Basophils % % Neutrophils # (1.3-7.7) k/uL Lymphocytes # (1.0-4.8) k/uL Monocytes # (0-1.0) k/uL Eosinophils # (0-0.7) k/uL Basophils # (0-0.2) k/uL Hypochromasia Macrocytosis Sample Site rrad ABG pH 7.07 L* (7.35-7.45) ABG pCO2 15 L* (35-45) mmHg ABG pO2 124 H (83-108) mmHg ABG O2 Saturation 98.0 H (94-97) % Lloyd Test Yes FiO2 21 % Sodium 143 (137-145) mmol/L Potassium 4.9 (3.5-5.1) mmol/L Chloride 114 H (98-107) mmol/L Carbon Dioxide 7 L* (22-30) mmol/L Anion Gap 22 mmol/L BUN 19 H (7-17) mg/dL Creatinine 0.64 (0.52-1.04) mg/dL Est GFR (CKD-EPI)AfAm >90 (>60 ml/min/1.73 sqM) Est GFR (CKD-EPI)NonAf >90 (>60 ml/min/1.73 sqM) Glucose 177 H (74-99) mg/dL POC Glucose (mg/dL) 324 H (75-99) mg/dL POC Glu [employer] ID Hong Munguia Lactic Ac Sepsis Rflx Plasma Lactic Acid Chriss (0.7-2.0) mmol/L Calcium 8.7 (8.4-10.2) mg/dL Magnesium (1.6-2.3) mg/dL Total Bilirubin 0.4 (0.2-1.3) mg/dL AST 114 H (14-36) U/L ALT 54 H (9-52) U/L Alkaline Phosphatase 173 H (38-126) U/L Total Protein 7.3 (6.3-8.2) g/dL Albumin 4.1 (3.5-5.0) g/dL Urine Color Urine Appearance (Clear) Urine pH (5.0-8.0) Ur Specific [place] (1.001-1.035) Urine Protein (Negative) Urine Glucose (UA) (Negative) Urine Ketones (Negative) Urine Blood (Negative) Urine Nitrite (Negative) Urine Bilirubin (Negative) Urine Urobilinogen (<2.0) mg/dL Ur Leukocyte Esterase (Negative) Urine RBC (0-5) /hpf Urine WBC (0-5) /hpf Ur Squamous Epith Cells (0-4) /hpf Urine Bacteria (None) /hpf Urine Mucus (None) /hpf Acetone, Qual (Negative) Influenza Type A RNA (Not Detectd) Influenza Type B (PCR) (Not Detectd) 08/12/18 08/12/18 Range/Units 15:21 16:21 WBC (4.0-11.0) k/uL RBC (3.80-5.40) m/uL Hgb (11.4-16.0) gm/dL Hct (34.0-46.0) % MCV (80.0-100.0) fL MCH (25.0-35.0) pg MCHC (31.0-37.0) g/dL RDW (11.5-15.5) % Plt Count (150-450) k/uL Neutrophils % % Lymphocytes % % Monocytes % % Eosinophils % % Basophils % % Neutrophils # (1.3-7.7) k/uL Lymphocytes # (1.0-4.8) k/uL Monocytes # (0-1.0) k/uL Eosinophils # (0-0.7) k/uL Basophils # (0-0.2) k/uL Hypochromasia Macrocytosis Sample Site ABG pH (7.35-7.45) ABG pCO2 (35-45) mmHg ABG pO2 (83-108) mmHg ABG O2 Saturation (94-97) % Lloyd Test FiO2 % Sodium (137-145) mmol/L Potassium (3.5-5.1) mmol/L Chloride (98-107) mmol/L Carbon Dioxide (22-30) mmol/L Anion Gap mmol/L BUN (7-17) mg/dL Creatinine (0.52-1.04) mg/dL Est GFR (CKD-EPI)AfAm (>60 ml/min/1.73 sqM) Est GFR (CKD-EPI)NonAf (>60 ml/min/1.73 sqM) Glucose (74-99) mg/dL POC Glucose (mg/dL) 166 H 157 H (75-99) mg/dL POC Glu [employer] Tsering Kulkarni Danielle Lactic Ac Sepsis Rflx Plasma Lactic Acid Chriss (0.7-2.0) mmol/L Calcium (8.4-10.2) mg/dL Magnesium (1.6-2.3) mg/dL Total Bilirubin (0.2-1.3) mg/dL AST (14-36) U/L ALT (9-52) U/L Alkaline Phosphatase (38-126) U/L Total Protein (6.3-8.2) g/dL Albumin (3.5-5.0) g/dL Urine Color Urine Appearance (Clear) Urine pH (5.0-8.0) Ur Specific [place] (1.001-1.035) Urine Protein (Negative) Urine Glucose (UA) (Negative) Urine Ketones (Negative) Urine Blood (Negative) Urine Nitrite (Negative) Urine Bilirubin (Negative) Urine Urobilinogen (<2.0) mg/dL Ur Leukocyte Esterase (Negative) Urine RBC (0-5) /hpf Urine WBC (0-5) /hpf Ur Squamous Epith Cells (0-4) /hpf Urine Bacteria (None) /hpf Urine Mucus (None) /hpf Acetone, Qual (Negative) Influenza Type A RNA (Not Detectd) Influenza Type B (PCR) (Not Detectd) Disposition Clinical Impression: Diabetic ketoacidosis, Acute vomiting, Dehydration, Influenza Referrals: Kathy Feliciano MD [Primary Care Provider] - 1-2 days
[2018-08-12 12:28] LABS: Basophils # (A) 0.1 k/uL (0-0.2); Basophils % (A) 0 %; Eosinophils % (A) 0 %; HGB 16.1 gm/dL (11.4-16.0); Hypochromasia Marked; Lymphocytes # (A) 0.9 k/uL (1.0-4.8); Lymphocytes % (A) 8 %; MCH 29.1 pg (25.0-35.0); MCHC 28.6 g/dL (31.0-37.0); MCV 101.9 fL (80.0-100.0); Macrocytosis Slight; Mean Platelet Volume 7.3; Monocytes # (A) 0.4 k/uL (0-1.0); Monocytes % (A) 3 %; Neutrophils # (A) 10.2 k/uL (1.3-7.7); Neutrophils % (A) 87 %; Platelet Count 482 k/uL (150-450); RBC 5.54 m/uL (3.80-5.40); RDW 13.9 % (11.5-15.5); WBC 11.7 k/uL (4.0-11.0)
[2018-08-12 12:32] LABS: ALT 64 U/L (9-52); AST 143 U/L (14-36); Albumin 5.3 g/dL (3.5-5.0); Alkaline Phosphatase 244 U/L (38-126); Anion Gap 34 mmol/L; Blood Urea Nitrogen 26 mg/dL (7-17); Calcium 10.6 mg/dL (8.4-10.2); Chloride 96 mmol/L (98-107); Magnesium 2.8 mg/dL (1.6-2.3); Sodium 136 mmol/L (137-145); Total Bilirubin 0.4 mg/dL (0.2-1.3); Total Protein 9.1 g/dL (6.3-8.2)
[2018-08-12 12:35] LABS: HCT 56.4 % (34.0-46.0)
[2018-08-12 12:37] LABS: Glucose,Whole Blood >600 mg/dL (75-99)
[2018-08-12] MEDS: INSULIN REGULAR 100 UNIT in SODIUM CHLORIDE 0.9% 100 ML IV SCH (12:37)
[2018-08-12 13:09] LABS: Appearance,Urine Clear (Clear); Bacteria,Urine Rare /hpf; Bilirubin,Urine Negative (Negative); Blood,Urine Negative (Negative); Color,Urine Colorless; Glucose,Urine (UA) 4+ (Negative); Leukocyte Esterase,Urine Negative (Negative); Mucus,Urine Rare /hpf; Nitrite,Urine Negative (Negative); Protein,Urine 1+ (Negative); RBC,Urine <1 /hpf (0-5); Specific Gravity,Urine 1.022 (1.001-1.035); Squamous Epithelial Cell,Urine 1 /hpf (0-4); Urobilinogen,Urine <2.0 mg/dL (<2.0); WBC,Urine 1 /hpf (0-5)
[2018-08-12 13:09] LABS: Glucose 751 mg/dL (74-99)
[2018-08-12 13:10] LABS: Carbon Dioxide 6 mmol/L (22-30); Potassium 6.4 mmol/L (3.5-5.1)
[2018-08-12 13:11] LABS: Ketones,Urine 4+ (Negative)
[2018-08-12 13:21] LABS: Glucose,Whole Blood 515 mg/dL (75-99)
--- NOTE | 2018-08-12 13:38 | XR ---
EXAMINATION TYPE: XR chest 2V DATE OF EXAM: 08/12/2018 COMPARISON: 03/19/2018 HISTORY: 17-year-old female difficulty breathing, shortness of breath TECHNIQUE: AP and lateral views FINDINGS: Heart normal size. Aorta and pulmonary vasculature within normal limits. Mild peribronchial cuffing i s noted. No consolidation or pleural effusion. IMPRESSION: Mild peribronchial cuffing could represent bronchitis or asthma.
[2018-08-12] MEDS ORDERED: OSELTAMIVIR 75 MG CAP PO STA (13:43)
[2018-08-12 14:22] LABS: ABG PCO2 15 mmHg (35-45); ABG PH 7.07 (7.35-7.45); ABG PO2 124 mmHg (83-108)
[2018-08-12 14:28] LABS: Glucose,Whole Blood 324 mg/dL (75-99)
[2018-08-12] MEDS ORDERED: SODIUM CHLORIDE 0.9% 1,000 ML IV SCH ×2 (14:45→16:45)
[2018-08-12 15:39] LABS: Glucose,Whole Blood 166 mg/dL (75-99)
[2018-08-12] MEDS: D5-0.45% NACL WITH KCL 20MEQ/L 1,000 ML IV SCH ×2 (15:45→21:28)
[2018-08-12 15:59] LABS: ALT 54 U/L (9-52); AST 114 U/L (14-36); Albumin 4.1 g/dL (3.5-5.0); Alkaline Phosphatase 173 U/L (38-126); Anion Gap 22 mmol/L; Blood Urea Nitrogen 19 mg/dL (7-17); Calcium 8.7 mg/dL (8.4-10.2); Chloride 114 mmol/L (98-107); Glucose 177 mg/dL (74-99); Potassium 4.9 mmol/L (3.5-5.1); Sodium 143 mmol/L (137-145); Total Bilirubin 0.4 mg/dL (0.2-1.3); Total Protein 7.3 g/dL (6.3-8.2)
[2018-08-12 16:07] LABS: Carbon Dioxide 7 mmol/L (22-30)
[2018-08-12 16:24] LABS: Glucose,Whole Blood 157 mg/dL (75-99)
[2018-08-12] MEDS ORDERED: INSULIN REGULAR 100 UNIT in SODIUM CHLORIDE 0.9% 100 ML IV SCH (16:45)
[2018-08-12 17:22] LABS: Glucose,Whole Blood 167 mg/dL (75-99)
[2018-08-12 18:20] LABS: Glucose,Whole Blood 192 mg/dL (75-99)
--- NOTE | 2018-08-12 19:15 | HP ---
HISTORY AND PHYSICAL CHIEF COMPLAINT: DKA with nausea and vomiting. 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 She came to the emergency room after a 2 or 3-day history of nausea, vomiting, and presented with a blood sugar of over 700. She also had influenza A. She is on NovoLog and Basaglar and she has an hog ribber out of the area. REVIEW OF SYSTEMS: At the present time she is lethargic but she denies any problems with headache, neurologic issues, chest pain, shortness of breath, hematemesis, diarrhea, melena, etc. She has had no urinary complaints. Past medical history, family history and personal and social history reveal that she is not allergic to any medication, not had any surgery. She takes only Basaglar and NovoLog. PHYSICAL EXAMINATION: Pulse is 116 and blood pressure is 124/80 with respirations of 38, and she is afebrile. In general, she appeared to be dehydrated and slightly lethargic. Skin was dry. Head, ears, eyes, nose, mouth, and throat were normal except for dry mucous membranes. There are no neck masses. The chest is clear to auscultation. Cardiac exam demonstrates sinus tachycardia with no murmurs or extra sounds. The abdomen is soft and a little bit tender over the epigastrium. Bowel sounds present. Extremities are normal and neurologically she is intact. She is admitted to the hospital with the diagnoses of: 1. Diabetic ketoacidosis. 2. Dehydration. 3. Influenza A. PLAN: 1. Bed rest. 2. IV fluids. 3. Uncontrolled diabetes. MMODL / IJN: [id number] /
[2018-08-12] MEDS ORDERED: PHENAZOPYRIDINE 200 MG TAB PO STA (19:26)
[2018-08-12 19:39] LABS: Glucose,Whole Blood 167 mg/dL (75-99)
[2018-08-12 20:26] LABS: Glucose,Whole Blood 142 mg/dL (75-99)
[2018-08-12 20:37] VITALS: BMI 23.6
[2018-08-12 21:09] LABS: Anion Gap 15 mmol/L; Blood Urea Nitrogen 15 mg/dL (7-17); Carbon Dioxide 14 mmol/L (22-30); Chloride 110 mmol/L (98-107); Glucose 146 mg/dL (74-99); Phosphorus 3.4 mg/dL (2.5-4.5); Potassium 4.7 mmol/L (3.5-5.1); Sodium 139 mmol/L (137-145)
[2018-08-12] MEDS: OSELTAMIVIR 75 MG CAP PO SCH (21:28)
[2018-08-12 21:29] LABS: Glucose,Whole Blood 108 mg/dL (75-99)
[2018-08-12 22:18] LABS: Glucose,Whole Blood 107 mg/dL (75-99)
[2018-08-12 23:41] LABS: Glucose,Whole Blood 109 mg/dL (75-99)
[2018-08-13] MEDS: D5-0.45% NACL WITH KCL 20MEQ/L 1,000 ML IV SCH ×2 (00:04→06:32)
[2018-08-13] MEDS ORDERED: ACETAMINOPHEN TAB 325 MG TAB PO PRN (00:18)
[2018-08-13 00:19] LABS: Anion Gap 15 mmol/L; Blood Urea Nitrogen 12 mg/dL (7-17); Carbon Dioxide 11 mmol/L (22-30); Chloride 110 mmol/L (98-107); Glucose 122 mg/dL (74-99); Phosphorus 3.1 mg/dL (2.5-4.5); Potassium 4.8 mmol/L (3.5-5.1); Sodium 136 mmol/L (137-145)
[2018-08-13 00:48] LABS: Glucose,Whole Blood 126 mg/dL (75-99)
[2018-08-13 01:21] LABS: Glucose,Whole Blood 136 mg/dL (75-99)
[2018-08-13 02:26] LABS: Glucose,Whole Blood 138 mg/dL (75-99)
[2018-08-13 03:21] LABS: Glucose,Whole Blood 134 mg/dL (75-99)
[2018-08-13 03:51] LABS: Basophils % (A) 0 %; Eosinophils % (A) 1 %; HCT 39.4 % (34.0-46.0); HGB 12.8 gm/dL (11.4-16.0); Lymphocytes # (A) 1.2 k/uL (1.0-4.8); Lymphocytes % (A) 22 %; MCH 29.8 pg (25.0-35.0); MCHC 32.5 g/dL (31.0-37.0); Mean Platelet Volume 6.7; Monocytes # (A) 0.3 k/uL (0-1.0); Monocytes % (A) 6 %; Neutrophils # (A) 3.9 k/uL (1.3-7.7); Neutrophils % (A) 70 %; Platelet Count 266 k/uL (150-450); RBC 4.29 m/uL (3.80-5.40); RDW 14.3 % (11.5-15.5); WBC 5.6 k/uL (4.0-11.0)
[2018-08-13 03:52] LABS: MCV 91.9 fL (80.0-100.0)
[2018-08-13 04:03] LABS: ALT 56 U/L (9-52); AST 130 U/L (14-36); Albumin 3.3 g/dL (3.5-5.0); Alkaline Phosphatase 139 U/L (38-126); Anion Gap 10 mmol/L; Blood Urea Nitrogen 11 mg/dL (7-17); Calcium 8.8 mg/dL (8.4-10.2); Carbon Dioxide 16 mmol/L (22-30); Chloride 110 mmol/L (98-107); Glucose 166 mg/dL (74-99); Phosphorus 2.8 mg/dL (2.5-4.5); Potassium 4.3 mmol/L (3.5-5.1); Sodium 136 mmol/L (137-145); Total Bilirubin 0.3 mg/dL (0.2-1.3); Total Protein 6.1 g/dL (6.3-8.2)
[2018-08-13 04:13] LABS: Glucose,Whole Blood 175 mg/dL (75-99)
[2018-08-13 05:24] LABS: Glucose,Whole Blood 137 mg/dL (75-99)
[2018-08-13 06:16] LABS: Glucose,Whole Blood 144 mg/dL (75-99)
[2018-08-13] MEDS: INSULIN REGULAR 100 UNIT in SODIUM CHLORIDE 0.9% 100 ML IV SCH (06:32)
[2018-08-13 07:53] LABS: Glucose,Whole Blood 120 mg/dL (75-99)
[2018-08-13 08:18] LABS: Glucose,Whole Blood 155 mg/dL (75-99)
[2018-08-13 08:45] VITALS: RESP 18
[2018-08-13 08:47] LABS: Anion Gap 7 mmol/L; Blood Urea Nitrogen 9 mg/dL (7-17); Carbon Dioxide 17 mmol/L (22-30); Chloride 113 mmol/L (98-107); Glucose 138 mg/dL (74-99); Phosphorus 2.4 mg/dL (2.5-4.5); Potassium 3.9 mmol/L (3.5-5.1); Sodium 137 mmol/L (137-145)
[2018-08-13] MEDS: OSELTAMIVIR 75 MG CAP PO SCH (09:30)
[2018-08-13 09:31] LABS: Glucose,Whole Blood 128 mg/dL (75-99)
[2018-08-13 11:14] LABS: Glucose,Whole Blood 131 mg/dL (75-99)
[2018-08-13 11:57] VITALS: BP 118/76; PULSE 103; TEMP 98.2
[2018-08-13 12:16] LABS: Basophils % (A) 0 %; Eosinophils % (A) 1 %; HCT 39.9 % (34.0-46.0); HGB 12.7 gm/dL (11.4-16.0); Lymphocytes # (A) 1.1 k/uL (1.0-4.8); Lymphocytes % (A) 20 %; MCH 29.3 pg (25.0-35.0); MCHC 31.7 g/dL (31.0-37.0); MCV 92.5 fL (80.0-100.0); Mean Platelet Volume 6.5; Monocytes # (A) 0.2 k/uL (0-1.0); Monocytes % (A) 4 %; Neutrophils # (A) 4.2 k/uL (1.3-7.7); Neutrophils % (A) 74 %; Platelet Count 246 k/uL (150-450); RBC 4.32 m/uL (3.80-5.40); RDW 14.3 % (11.5-15.5); WBC 5.7 k/uL (4.0-11.0)
[2018-08-13 12:35] LABS: ALT 96 U/L (9-52); AST 346 U/L (14-36); Albumin 3.3 g/dL (3.5-5.0); Alkaline Phosphatase 137 U/L (38-126); Anion Gap 8 mmol/L; Blood Urea Nitrogen 9 mg/dL (7-17); Carbon Dioxide 18 mmol/L (22-30); Chloride 111 mmol/L (98-107); Glucose 138 mg/dL (74-99); Sodium 137 mmol/L (137-145); Total Bilirubin 0.3 mg/dL (0.2-1.3); Total Protein 6.1 g/dL (6.3-8.2)
[2018-08-13 13:08] LABS: Glucose,Whole Blood 145 mg/dL (75-99)
--- NOTE | 2018-08-13 13:10 | PN ---
PROGRESS NOTE CHIEF COMPLAINT: DKA with influenza. HISTORY OF PRESENT ILLNESS: This young lady is doing a lot better. Vomiting stopped. Sugars have come down. She still is a little bit nauseated. She has not been eating. PHYSICAL EXAM: Hydration is good. Chest is clear. Cardiac exam is normal. Abdomen is soft, nontender. IMPRESSION: 1. Diabetic ketoacidosis. 2. Influenza. 3. Dehydration. PLAN: Start to advance diet and probably home tomorrow. MMODL / IJN: [id number] /
[2018-08-13] MEDS ORDERED: INSULIN DETEMIR 100 UNIT/ML 10 ML VIAL SQ ONE (13:12)
--- NOTE | 2018-08-13 15:03 | DS ---
DISCHARGE SUMMARY CHIEF COMPLAINT: Diabetic ketoacidosis with influenza A. HISTORY OF PRESENT ILLNESS AND PHYSICAL EXAM: Details of this young lady's history and physical can be found in the initial workup. LABORATORY STUDIES: While she was in the hospital, she had laboratory studies, details which can be found laboratory section of her chart. COURSE IN HOSPITAL: After admission, she was placed on bedrest, started on intravenous fluids and insulin drip. Blood sugars came down. She did well. She was still slightly nauseated and weak and it was thought that she would stay another day, but then she and her mother decided that she wanted to be discharged. She will be sent home on the . She will go home on her usual activity, diet and insulin management along with Tamiflu twice a day. She will follow up in the office in 4 or 5 days. FINAL DIAGNOSES: 1. Diabetic ketoacidosis. 2. Type 1 insulin-dependent diabetes mellitus. 3. Influenza A. OPERATIONS: None. CONSULTATIONS: None. She is improved. MMDAVIDE / HOODN: [id number] /
[2018-08-13] MEDS ORDERED: INSULIN ASPART 100 UNIT/ML 1 ML 10 ML VIAL SQ SCH (17:30)
[2018-08-13] MEDS ORDERED: INSULIN DETEMIR 100 UNIT/ML 10 ML VIAL SQ SCH (21:00)
[2018-08-14 11:38] LABS: Hemoglobin A1C 14.3 % (4.0-6.0)
== END 2018-08-13 15:01 | disposition home or self-care (01) | DRG 639 ==
LOC: EC 11:12 → 3SCARD 16:36
PROVIDERS: ADMIT Family Medicine; ATTEND Family Medicine
DX: E10.10 Type 1 diabetes mellitus with ketoacidosis without coma (principal); E86.0 Dehydration; J10.1 Influenza due to other identified influenza virus with other respiratory manifestations; Z79.4 Long term (current) use of insulin
CPT/HCPCS: 36415; 36600; 71046; 80048; 80051; 80053; 81001; 82009; 82565; 82805; 82947; 83036; 83605; 83735; 84100; 84520; 85025; 87040; 87086; 87502

== ENCOUNTER 2019-01-10 23:20 | Emergency (ER) | payer OTHER ==
[2019-01-10 23:25] VITALS: TEMP 98.4
[2019-01-11 00:47] LABS: Appearance,Urine Cloudy (Clear); Bilirubin,Urine 2+ (Negative); Blood,Urine Trace (Negative); Color,Urine Yellow; Glucose,Urine (UA) 4+ (Negative); Hyaline Casts,Urine 178 /lpf (0-2); Leukocyte Esterase,Urine Moderate (Negative); Mucus,Urine Occasional /hpf; Nitrite,Urine Negative (Negative); PH, Urine 5.5 (5.0-8.0); Protein,Urine 2+ (Negative); RBC,Urine 12 /hpf (0-5); Specific Gravity,Urine 1.041 (1.001-1.035); Squamous Epithelial Cell,Urine 14 /hpf (0-4); WBC,Urine 84 /hpf (0-5)
--- NOTE | 2019-01-11 00:50 | ED ---
Female Urogenital HPI - General Chief complaint: Urogenital Stated complaint: Urogenital Time Seen by Provider: 01/11/19 00:14 Source: patient, family Mode of arrival: ambulatory Limitations: no limitations - History of Present Illness Initial comments: This patient is 18-year-old woman who presents with dysuria that started a number of hours ago while she was at a baseball game. Patient states she had this previously and was told she had urinary tract infection. Patient denies any systemic symptoms, including no fever or chills, chest pain, dyspnea, alterations. There is no back pain. She indicates suprapubic discomfort with urination. Patient denies vaginal discharge or dyspareunia. MD Complaint: dysuria -: hour(s) Location: suprapubic Radiation: non-radiating Severity: moderate Quality: burning Consistency: now resolved Improves with: none Worsens with: urination Last Menstrual Period: 01/07/19 Patient : No Associated Symptoms: denies other symptoms - Related Data Home Medications Medication Instructions Recorded Confirmed Insulin Aspart [NovoLOG Flexpen] 1 - 6 units SQ AC-TID 08/12/18 08/12/18 Insulin Glargine,Hum.rec.anlog 30 units SQ HS 08/12/18 08/12/18 [Basaglar Kwikpen U-100] Zofran Unknown Dose 1 tab PO ONCE PRN 08/12/18 08/12/18 Previous Rx's Medication Instructions Recorded Oseltamivir [Tamiflu] 75 mg PO Q12HR #10 cap 08/13/18 Phenazopyridine [Pyridium] 100 mg PO TID #6 tablet 01/11/19 Sulfamethox-Tmp 800-160Mg [Bactrim 1 each PO Q12HR #6 tab 01/11/19 Ds] Allergies Allergy/AdvReac Type Severity Reaction Status Date / Time No Known Allergies Allergy Verified 01/10/19 23:25 Review of Systems ROS Statement: Those systems with pertinent positive or pertinent negative responses have been documented in the HPI. ROS Other: All systems not noted in ROS Statement are negative. Constitutional: Denies: fever, chills Respiratory: Denies: cough, dyspnea Cardiovascular: Denies: chest pain, palpitations Gastrointestinal: Denies: abdominal pain, nausea, vomiting, diarrhea Genitourinary: Reports: dysuria, frequency. Denies: hematuria, discharge, abnormal menses, dyspareunia Musculoskeletal: Denies: back pain Skin: Denies: rash Neurological: Denies: headache Past Medical History Past Medical History: Diabetes Mellitus History of Any Multi-Drug Resistant Organisms: None Reported Past Surgical History: No Surgical Hx Reported Past Psychological History: No Psychological Hx Reported Smoking Status: Never smoker Past Alcohol Use History: None Reported Past Drug Use History: None Reported - Past Family History Mother Family Medical History: Cancer, Diabetes Mellitus, Hypertension, Thyroid Disorder Father Family Medical History: Coronary Artery Disease (CAD) General Exam Limitations: no limitations General appearance: alert, in no apparent distress Head exam: Present: atraumatic, normocephalic Respiratory exam: Present: normal lung sounds bilaterally. Absent: respiratory distress, wheezes, rales, rhonchi, stridor Cardiovascular Exam: Present: regular rate, normal rhythm, normal heart sounds. Absent: systolic murmur, diastolic murmur, rubs, gallop GI/Abdominal exam: Present: soft. Absent: distended, tenderness, guarding, rebound, rigid, mass Extremities exam: Present: normal inspection, normal capillary refill. Absent: pedal edema, calf tenderness Back exam: Absent: CVA tenderness (R), CVA tenderness (L) Skin exam: Present: warm, dry, intact, normal color. Absent: rash Course Vital Signs 01/10/19 23:21 Temperature 98.4 F Pulse Rate 112 H Respiratory 20 Rate Blood Pressure 131/96 O2 Sat by Pulse 97 Oximetry Medical Decision Making - Lab Data Lab Results 01/11/19 01/11/19 Range/Units 00:15 00:15 Urine Color Yellow Urine Appearance Cloudy H (Clear) Urine pH 5.5 (5.0-8.0) Ur Specific [place] 1.041 H (1.001-1.035) Urine Protein 2+ H (Negative) Urine Glucose (UA) 4+ H (Negative) Urine Ketones 2+ H (Negative) Urine Blood Trace H (Negative) Urine Nitrite Negative (Negative) Urine Bilirubin 2+ H (Negative) Urine Urobilinogen 6.0 (<2.0) mg/dL Ur Leukocyte Esterase Moderate H (Negative) Urine RBC 12 H (0-5) /hpf Urine WBC 84 H (0-5) /hpf Ur Squamous Epith Cells 14 H (0-4) /hpf Hyaline Casts 178 H (0-2) /lpf Urine Mucus Occasional H (None) /hpf Urine HCG, Qual Not Detected (Not Detectd) Disposition Clinical Impression: Urinary tract infection Disposition: HOME SELF-CARE Condition: Good Instructions (If sedation given, give patient instructions): Urinary Tract Infection in Women (ED) Prescriptions: Sulfamethox-Tmp 800-160Mg [Bactrim Ds] 1 each PO Q12HR #6 tab Phenazopyridine [Pyridium] 100 mg PO TID #6 tablet Is patient prescribed a controlled substance at d/c from ED?: No Referrals: Kathy Feliciano MD [Primary Care Provider] - 1-2 days
[2019-01-11 00:51] LABS: Ketones,Urine 2+ (Negative)
[2019-01-11] MEDS ORDERED: SULFAMETHOX-TMP 800-160MG 1 EACH TAB PO STA (00:58)
[2019-01-11] MEDS ORDERED: SODIUM CHLORIDE 0.9% 1,000 ML IV ONE ×2 (01:02→02:11)
[2019-01-11 01:41] LABS: Basophils # (A) 0.1 k/uL (0-0.2); Basophils % (A) 1 %; Eosinophils # (A) 0.1 k/uL (0-0.7); Eosinophils % (A) 1 %; HCT 44.4 % (34.0-46.0); HGB 14.4 gm/dL (11.4-16.0); Lymphocytes # (A) 2.7 k/uL (1.0-4.8); Lymphocytes % (A) 34 %; MCH 29.6 pg (25.0-35.0); MCHC 32.4 g/dL (31.0-37.0); MCV 91.4 fL (80.0-100.0); Mean Platelet Volume 6.7; Monocytes # (A) 0.5 k/uL (0-1.0); Monocytes % (A) 7 %; Neutrophils # (A) 4.4 k/uL (1.3-7.7); Neutrophils % (A) 55 %; Platelet Count 490 k/uL (150-450); RBC 4.86 m/uL (3.80-5.40); RDW 13.5 % (11.5-15.5)
[2019-01-11 01:48] LABS: Anion Gap 16 mmol/L; Blood Urea Nitrogen 21 mg/dL (7-17); Calcium 11.6 mg/dL (8.4-10.2); Carbon Dioxide 21 mmol/L (22-30); Chloride 98 mmol/L (98-107); Glucose 325 mg/dL (74-99); Potassium 4.9 mmol/L (3.5-5.1); Sodium 135 mmol/L (137-145)
[2019-01-11] MEDS ORDERED: INSULIN REGULAR 100 UNIT/ML VIAL SQ STA (02:11)
[2019-01-11] MEDS ORDERED: SODIUM CHLORIDE 0.9% 500 ML 500 ML IV STA (02:11)
[2019-01-11 03:23] LABS: Glucose,Whole Blood 274 mg/dL (75-99)
[2019-01-11 04:07] VITALS: BP 139/89; PULSE 97; RESP 18
== END 2019-01-11 04:06 | disposition home or self-care (01) ==
LOC: EC 23:20
DX: N39.0 Urinary tract infection, site not specified (principal); E11.9 Type 2 diabetes mellitus without complications; Z79.4 Long term (current) use of insulin
CPT/HCPCS: 36415; 80048; 81001; 81025; 82009; 85025; 96360; 96361; 99283

== ENCOUNTER 2019-04-07 10:14 | Emergency (ER) | payer OTHER ==
[2019-04-07 10:34] VITALS: RESP 18; TEMP 98.3
--- NOTE | 2019-04-07 10:48 | ED ---
Female Urogenital HPI - General Chief complaint: Urogenital Stated complaint: Poss uti Time Seen by Provider: 04/07/19 10:34 Source: patient Mode of arrival: ambulatory Limitations: no limitations - History of Present Illness Initial comments: Patient is a 18-year-old female presenting to emergency department complaints of a UTI 1 day. Patient admits to having burning with urination, bladder pressure, increased frequency. Patient states she is a type I diabetic and gets UTIs frequently. Her last one was end of December. Patient denies fever, chills, nausea, vomiting, vaginal discharge. No other complaints at this time. - Related Data Home Medications Medication Instructions Recorded Confirmed Insulin Aspart [NovoLOG Flexpen] 1 - 6 units SQ AC-TID 08/12/18 08/12/18 Insulin Glargine,Hum.rec.anlog 30 units SQ HS 08/12/18 08/12/18 [Basaglar Kwikpen U-100] Zofran Unknown Dose 1 tab PO ONCE PRN 08/12/18 08/12/18 Previous Rx's Medication Instructions Recorded Oseltamivir [Tamiflu] 75 mg PO Q12HR #10 cap 08/13/18 Phenazopyridine [Pyridium] 100 mg PO TID #6 tablet 01/11/19 Sulfamethox-Tmp 800-160Mg [Bactrim 1 each PO Q12HR #6 tab 01/11/19 Ds] Cephalexin [Keflex] 500 mg PO BID 5 Days #10 cap 04/07/19 Allergies Allergy/AdvReac Type Severity Reaction Status Date / Time No Known Allergies Allergy Verified 04/07/19 10:31 Review of Systems ROS Statement: Those systems with pertinent positive or pertinent negative responses have been documented in the HPI. ROS Other: All systems not noted in ROS Statement are negative. Past Medical History Past Medical History: Diabetes Mellitus History of Any Multi-Drug Resistant Organisms: None Reported Past Surgical History: No Surgical Hx Reported Past Psychological History: No Psychological Hx Reported Smoking Status: Never smoker Past Alcohol Use History: None Reported Past Drug Use History: None Reported - Past Family History Mother Family Medical History: Cancer, Diabetes Mellitus, Hypertension, Thyroid Disorder Father Family Medical History: Coronary Artery Disease (CAD) General Exam - General Exam Comments Initial Comments: GENERAL: Well-appearing, well-nourished and in no acute distress. HEAD: Atraumatic, normocephalic. EYES: Pupils equal round and reactive to light, extraocular movements intact, sclera anicteric, conjunctiva are normal. ENT: TMs normal, nares patent, oropharynx clear without exudates. Moist mucous membranes. NECK: Normal range of motion, supple without lymphadenopathy or JVD. LUNGS: Breath sounds clear to auscultation bilaterally and equal. No wheezes rales or rhonchi. HEART: Regular rate and rhythm without murmurs, rubs or gallops. ABDOMEN: Mild suprapubic tenderness. Soft, normoactive bowel sounds. No guarding, no rebound. No masses appreciated. : Deferred EXTREMITIES: Normal range of motion, no pitting or edema. No clubbing or cyanosis. NEUROLOGICAL: Cranial nerves II through XII grossly intact. Normal speech, normal gait. PSYCH: Normal mood, normal affect. SKIN: Warm, Dry, normal turgor, no rashes or lesions noted. Limitations: no limitations Course Vital Signs 04/07/19 10:32 Temperature 98.3 F Pulse Rate 108 H Respiratory 18 Rate Blood Pressure 141/96 O2 Sat by Pulse 97 Oximetry Medical Decision Making - Medical Decision Making Patient is a 18-year-old female with UTI complaints 1. Patient admits to increased in frequency and burning with urination. Patient is a type I diabetic and has frequent UTIs. Her last was almost 2 months ago was treated with Bactrim. Patient denies any fever, chills, nausea, vomiting. Patient has some mild suprapubic tenderness with palpation. Rest of exam is within normal limits. UA reveals 4+ glucose, 80 WBCs. Urine hCG was not detected. Patient will be started on Keflex for UTI. Discussed with patient increase her fluid intake. Urine culture was ordered. Patient is stable for discharge. Return parameters were discussed with the patient and she verbalized understanding. Case discussed with Dr. Brannon. - Lab Data Lab Results 04/07/19 04/07/19 Range/Units 11:20 11:20 Urine Color Yellow Urine Appearance Cloudy H (Clear) Urine pH 6.0 (5.0-8.0) Ur Specific [place] 1.027 (1.001-1.035) Urine Protein Trace H (Negative) Urine Glucose (UA) 4+ H (Negative) Urine Ketones Negative (Negative) Urine Blood Negative (Negative) Urine Nitrite Negative (Negative) Urine Bilirubin Negative (Negative) Urine Urobilinogen <2.0 (<2.0) mg/dL Ur Leukocyte Esterase Moderate H (Negative) Urine RBC 1 (0-5) /hpf Urine WBC 80 H (0-5) /hpf Ur Squamous Epith Cells 11 H (0-4) /hpf Urine Bacteria Rare H (None) /hpf Hyaline Casts 1 (0-2) /lpf Urine Mucus Rare H (None) /hpf Urine HCG, Qual Not Detected (Not Detectd) Disposition Clinical Impression: Urinary tract infection Disposition: HOME SELF-CARE Condition: Stable Instructions (If sedation given, give patient instructions): Urinary Tract Infection in Women (ED) Additional Instructions: Please return to the Emergency Department if symptoms worsen or any other concerns. Prescriptions: Cephalexin [Keflex] 500 mg PO BID 5 Days #10 cap Is patient prescribed a controlled substance at d/c from ED?: No Referrals: Kathy Feliciano MD [Primary Care Provider] - 1-2 days
[2019-04-07 11:52] LABS: Appearance,Urine Cloudy (Clear); Bacteria,Urine Rare /hpf; Bilirubin,Urine Negative (Negative); Blood,Urine Negative (Negative); Color,Urine Yellow; Glucose,Urine (UA) 4+ (Negative); Hyaline Casts,Urine 1 /lpf (0-2); Ketones,Urine Negative (Negative); Leukocyte Esterase,Urine Moderate (Negative); Mucus,Urine Rare /hpf; Nitrite,Urine Negative (Negative); Protein,Urine Trace (Negative); RBC,Urine 1 /hpf (0-5); Specific Gravity,Urine 1.027 (1.001-1.035); Squamous Epithelial Cell,Urine 11 /hpf (0-4); Urobilinogen,Urine <2.0 mg/dL (<2.0)
[2019-04-07 12:57] VITALS: BP 137/81; PULSE 91
== END 2019-04-07 12:56 | disposition home or self-care (01) ==
LOC: EC 10:14
DX: N39.0 Urinary tract infection, site not specified (principal); Z32.02 Encounter for pregnancy test, result negative; E10.9 Type 1 diabetes mellitus without complications; Z79.4 Long term (current) use of insulin
CPT/HCPCS: 81001; 81025; 87086; 99283

== ENCOUNTER 2019-06-01 06:20 | Emergency (ER) | payer OTHER ==
[2019-06-01 06:52] LABS: Appearance,Urine Cloudy (Clear); Bilirubin,Urine Negative (Negative); Blood,Urine Moderate (Negative); Color,Urine Yellow; Glucose,Urine (UA) 1+ (Negative); Ketones,Urine Negative (Negative); Leukocyte Esterase,Urine Large (Negative); Mucus,Urine Rare /hpf; Nitrite,Urine Positive (Negative); Protein,Urine 2+ (Negative); RBC,Urine 81 /hpf (0-5); Specific Gravity,Urine 1.017 (1.001-1.035); Squamous Epithelial Cell,Urine 2 /hpf (0-4); Urobilinogen,Urine <2.0 mg/dL (<2.0); WBC,Urine >182 /hpf (0-5)
[2019-06-01] MEDS ORDERED: SULFAMETH-TMP DS STARTER PACK 2 TAB BTL PO STA (07:08)
--- NOTE | 2019-06-01 07:15 | ED ---
General Adult HPI - General Chief complaint: Urogenital Stated complaint: Urogen. Time Seen by Provider: 06/01/19 06:31 Source: patient, family, RN notes reviewed Mode of arrival: ambulatory Limitations: no limitations - History of Present Illness Initial comments: 18-year-old female with a past medical history of IDDM type I, UTI presents to the emergency department for a chief complaint of burning with urination. Patient states she has had dysuria since this morning. States she has a burning pain when urinating and some suprapubic discomfort. Denies any back pain. Denies nausea or vomiting. States she just checked her glucose was 178. States her glucose has been controlled.Patient has no other complaints at this time including shortness of breath, chest pain, abdominal pain, nausea or vomiting, headache, or visual changes. - Related Data Home Medications Medication Instructions Recorded Confirmed Insulin Aspart [NovoLOG Flexpen] 1 - 6 units SQ AC-TID 08/12/18 08/12/18 Insulin Glargine,Hum.rec.anlog 30 units SQ HS 08/12/18 08/12/18 [Basaglar Kwikpen U-100] Zofran Unknown Dose 1 tab PO ONCE PRN 08/12/18 08/12/18 Previous Rx's Medication Instructions Recorded Oseltamivir [Tamiflu] 75 mg PO Q12HR #10 cap 08/13/18 Phenazopyridine [Pyridium] 100 mg PO TID #6 tablet 01/11/19 Sulfamethox-Tmp 800-160Mg [Bactrim 1 each PO Q12HR #6 tab 01/11/19 Ds] Cephalexin [Keflex] 500 mg PO BID 5 Days #10 cap 04/07/19 Phenazopyridine HCl [Pyridium] 100 mg PO BID 3 Days #6 tab 06/01/19 Sulfamethox-Tmp 800-160Mg [Bactrim 1 tab PO Q12HR 7 Days #14 tab 06/01/19 DS 800-160 mg] Allergies Allergy/AdvReac Type Severity Reaction Status Date / Time No Known Allergies Allergy Verified 06/01/19 06:28 Review of Systems ROS Statement: Those systems with pertinent positive or pertinent negative responses have been documented in the HPI. ROS Other: All systems not noted in ROS Statement are negative. Past Medical History Past Medical History: Diabetes Mellitus Additional Past Medical History / Comment(s): UTIs History of Any Multi-Drug Resistant Organisms: None Reported Past Surgical History: No Surgical Hx Reported Past Psychological History: No Psychological Hx Reported Smoking Status: Never smoker Past Alcohol Use History: None Reported Past Drug Use History: None Reported - Past Family History Mother Family Medical History: Cancer, Diabetes Mellitus, Hypertension, Thyroid Disorder Father Family Medical History: Coronary Artery Disease (CAD) General Exam Limitations: no limitations General appearance: alert, in no apparent distress Head exam: Present: atraumatic, normocephalic, normal inspection Eye exam: Present: normal appearance, PERRL, EOMI. Absent: scleral icterus, conjunctival injection, periorbital swelling ENT exam: Present: normal exam, mucous membranes moist Neck exam: Present: normal inspection, full ROM. Absent: tenderness, meningismus, lymphadenopathy Respiratory exam: Present: normal lung sounds bilaterally. Absent: respiratory distress, wheezes, rales, rhonchi, stridor Cardiovascular Exam: Present: regular rate, normal rhythm, normal heart sounds. Absent: systolic murmur, diastolic murmur, rubs, gallop, clicks GI/Abdominal exam: Present: soft, tenderness (Tenderness noted in suprapubic area.), normal bowel sounds. Absent: distended, guarding, rebound, rigid Back exam: Absent: CVA tenderness (R), CVA tenderness (L) Neurological exam: Present: alert Course Vital Signs 06/01/19 06:24 Temperature 98.2 F Pulse Rate 104 H Respiratory 20 Rate Blood Pressure 144/88 O2 Sat by Pulse 100 Oximetry Medical Decision Making - Medical Decision Making Urinalysis shows greater than 182 white blood cells. No CVA tenderness or flank pain, no concern for pyelonephritis at this time. Patient had culture for staph saprophyticus in the past and will be treated with Bactrim. Patient's glucose is currently 178, states her glucose has been controlled. Ketones are negative and the urine. At this time patient is not in DKA. Patient will be given dose of antibiotics here as well as Pyridium. She will follow up with primary care in 1-2 days or return if she has any worsening symptoms. - Lab Data Lab Results 06/01/19 06/01/19 Range/Units 06:40 06:40 Urine Color Yellow Urine Appearance Cloudy H (Clear) Urine pH 6.0 (5.0-8.0) Ur Specific [place] 1.017 (1.001-1.035) Urine Protein 2+ H (Negative) Urine Glucose (UA) 1+ H (Negative) Urine Ketones Negative (Negative) Urine Blood Moderate H (Negative) Urine Nitrite Positive H (Negative) Urine Bilirubin Negative (Negative) Urine Urobilinogen <2.0 (<2.0) mg/dL Ur Leukocyte Esterase Large H (Negative) Urine RBC 81 H (0-5) /hpf Urine WBC >182 H (0-5) /hpf Urine WBC Clumps Few H (None) /hpf Ur Squamous Epith Cells 2 (0-4) /hpf Urine Mucus Rare H (None) /hpf Urine HCG, Qual Not Detected (Not Detectd) Disposition Clinical Impression: Urinary tract infection Disposition: HOME SELF-CARE Condition: Good Instructions (If sedation given, give patient instructions): Urinary Tract Infection in Women (ED) Additional Instructions: Please take antibiotic as directed. Take Pyridium as needed. Follow-up with primary care in 1-2 days. Return to the emergency department if you have any worsening symptoms or your sugars are not well-controlled. Prescriptions: Sulfamethox-Tmp 800-160Mg [Bactrim DS 800-160 mg] 1 tab PO Q12HR 7 Days #14 tab Phenazopyridine HCl [Pyridium] 100 mg PO BID 3 Days #6 tab Is patient prescribed a controlled substance at d/c from ED?: No Referrals: Kathy Feliciano MD [Primary Care Provider] - 1-2 days Time of Disposition: 07:12
[2019-06-01 07:27] VITALS: BP 131/73; PULSE 70; RESP 16; TEMP 98
[2019-06-04 14:07] LABS: C. trachomatis,PCR Equivocal (Neg,Equiv); Chlamydia trachomatis Source Urine; N. gonorrhoeae,PCR Equivocal (Neg,Equiv); Neisseria Source Urine
== END 2019-06-01 07:26 | disposition home or self-care (01) ==
LOC: EC 06:20
DX: N39.0 Urinary tract infection, site not specified (principal); E11.9 Type 2 diabetes mellitus without complications; Z79.4 Long term (current) use of insulin; Z86.14 Personal history of Methicillin resistant Staphylococcus aureus infection
CPT/HCPCS: 81001; 81025; 87491; 87591; 99283

== ENCOUNTER → 2019-06-12 | Outpatient (CLI) | payer OTHER ==
--- NOTE | 2019-06-13 14:49 | US ---
EXAMINATION TYPE: US kidneys/renal and bladder DATE OF EXAM: 06/12/2019 COMPARISON: NONE CLINICAL HISTORY: UTI N39.0. 3 uti's since December 2018, no hematuria, mild back pain EXAM MEASUREMENTS: Right Kidney: 9.9 x 5.0 x 5.0 cm Left Kidney: 12.1 x 4.4 x 5.3 cm Right Kidney: No hydronephrosis or masses seen Left Kidney: No hydronephrosis or masses seen Bladder: wnl Bilateral Jets seen: yes There is no evidence for hydronephrosis at this point in time. No nephrolithiasis is seen. No konrad s are identified. The urinary bladder is anechoic. Bilateral ureteral jets are seen. Cortical medullary differentiation is maintained. IMPRESSION: Normal renal ultrasound.
== END | disposition home or self-care (01) ==
LOC: RADUSWWP 16:01
PROVIDERS: ATTEND Pediatrics Adolescent Medicine
DX: N39.0 Urinary tract infection, site not specified (principal)
CPT/HCPCS: 76770

== ENCOUNTER → 2019-07-03 | Day surgery (SDC) | payer OTHER ==
--- NOTE | 2019-07-03 15:13 | FL ---
EXAMINATION TYPE: FL voiding cystourethrogram DATE OF EXAM: 07/03/2019 COMPARISON: NONE HISTORY: Frequent urinary tract infections. TECHNIQUE: Fluoroscopic documentation was performed during retrograde instillation of contrast within the urinary bladder from a Edwards catheter. 1 minute and 25 seconds of fluoroscopy was utilized with 26 fluoroscopic images saved. FINDINGS: The urinary bladder was distended with approximately 200 cc of contrast, as much as the pat ient could tolerate. The patient requested to stop instillation of contrast to 200 cc. Frontal, obliq ue bilateral, and left lateral images of the urinary bladder demonstrate no filling defect or abnorma l contour. Images over the region of the kidneys intermittently throughout the exam demonstrate no ev idence of vesicoureteral reflux. Voiding images demonstrate no vesicular ureteral reflux within the u reters or renal collecting systems. IMPRESSION: No evidence of abnormal urinary bladder filling defect nor ureterovesicular reflux.
== END ==
LOC: RADPROMAIN 13:18
PROVIDERS: ATTEND Pediatrics Adolescent Medicine
DX: N39.0 Urinary tract infection, site not specified (principal)
CPT/HCPCS: 50684; 51600; 74455

== ENCOUNTER 2020-06-22 13:14 | Emergency (ER) | payer OTHER ==
[2020-06-22 13:29] VITALS: BP 140/88; PULSE 112; RESP 18; TEMP 98.6
--- NOTE | 2020-06-22 13:42 | ED ---
General Adult HPI - General Chief complaint: Extremity Problem,Nontraumatic Stated complaint: Lt heal pain Time Seen by Provider: 06/22/20 13:30 Source: patient, RN notes reviewed, old records reviewed Mode of arrival: wheelchair Limitations: no limitations - History of Present Illness Initial comments: 19-year-old with left heel pain. Patient injured her left heel one week ago. She believes she had stepped on an acorn in the words. This was through a thick soled shoe. There is no penetration through the shoe into the foot. She had noticed some swelling in her he'll with continued pain after one week. Denies any other injury. Pain is isolated to the left heel. No fever. No swelling into the foot or leg. - Related Data Home Medications Medication Instructions Recorded Confirmed Insulin Aspart [NovoLOG Flexpen] 1 - 6 units SQ AC-TID 08/12/18 08/12/18 Insulin Glargine,Hum.rec.anlog 30 units SQ HS 08/12/18 08/12/18 [Basaglar Kwikpen U-100] Zofran Unknown Dose 1 tab PO ONCE PRN 08/12/18 08/12/18 Previous Rx's Medication Instructions Recorded Oseltamivir [Tamiflu] 75 mg PO Q12HR #10 cap 08/13/18 Phenazopyridine [Pyridium] 100 mg PO TID #6 tablet 01/11/19 Sulfamethox-Tmp 800-160Mg [Bactrim 1 each PO Q12HR #6 tab 01/11/19 Ds] Cephalexin [Keflex] 500 mg PO BID 5 Days #10 cap 04/07/19 Phenazopyridine HCl [Pyridium] 100 mg PO BID 3 Days #6 tab 06/01/19 Sulfamethox-Tmp 800-160Mg [Bactrim 1 tab PO Q12HR 7 Days #14 tab 06/01/19 DS 800-160 mg] Allergies Allergy/AdvReac Type Severity Reaction Status Date / Time No Known Allergies Allergy Verified 06/22/20 13:27 Review of Systems ROS Statement: Those systems with pertinent positive or pertinent negative responses have been documented in the HPI. ROS Other: All systems not noted in ROS Statement are negative. Past Medical History Past Medical History: Diabetes Mellitus Additional Past Medical History / Comment(s): UTIs History of Any Multi-Drug Resistant Organisms: None Reported Past Surgical History: No Surgical Hx Reported Past Psychological History: No Psychological Hx Reported Smoking Status: Never smoker Past Alcohol Use History: None Reported Past Drug Use History: None Reported - Past Family History Mother Family Medical History: Cancer, Diabetes Mellitus, Hypertension, Thyroid Disorder Father Family Medical History: Coronary Artery Disease (CAD) General Exam Limitations: no limitations General appearance: alert, in no apparent distress Head exam: Present: atraumatic, normocephalic Eye exam: Present: normal appearance, PERRL ENT exam: Present: normal exam Neck exam: Present: normal inspection. Absent: tenderness, meningismus Respiratory exam: Present: normal lung sounds bilaterally. Absent: respiratory distress, wheezes Cardiovascular Exam: Present: regular rate, normal rhythm GI/Abdominal exam: Present: soft. Absent: distended, tenderness Extremities exam: Present: full ROM, tenderness (Center of the left heel there is tenderness and some callus formation.no visualized foreign body. No puncture wound.), normal capillary refill Neurological exam: Present: alert, oriented X3, CN II-XII intact. Absent: motor sensory deficit Course Vital Signs 06/22/20 13:25 Temperature 98.6 F Pulse Rate 112 H Respiratory 18 Rate Blood Pressure 140/88 O2 Sat by Pulse 98 Oximetry Medical Decision Making - Medical Decision Making 21-year-old with pain in her heel. There is a 3 mm round focal tenderness in the center of the left heel, either inflammatory change or plantar wart. There is no stranding cellulitis, patient had been concerned about foreign body although the shoe was not penetrated, there is no puncture wound. I did advise to place a cushion around the site of injury and to follow-up with podiatry. Disposition Clinical Impression: [place] of foot Disposition: HOME SELF-CARE Condition: Good Instructions (If sedation given, give patient instructions): Foot Contusion (ED) Is patient prescribed a controlled substance at d/c from ED?: No Referrals: Kathy Feliciano MD [Primary Care Provider] - 1-2 days Pete Crow DPM [STAFF PHYSICIAN] - 1-2 days Decision to Admit Reason: Admit from EC Decision Date: 06/22/20 Decision Time: 13:41
== END 2020-06-22 13:52 | disposition home or self-care (01) ==
LOC: EC 13:14
DX: L84 Corns and callosities (principal); E11.9 Type 2 diabetes mellitus without complications; Z79.4 Long term (current) use of insulin
CPT/HCPCS: 99283

== ENCOUNTER 2020-06-27 16:59 | Inpatient (IN) | payer OTHER ==
[2020-06-27 18:33] LABS: Basophils % (A) 1 %; Eosinophils % (A) 0 %; HCT 48.7 % (34.0-46.0); HGB 15.5 gm/dL (11.4-16.0); Lymphocytes # (A) 0.7 k/uL (1.0-4.8); Lymphocytes % (A) 14 %; MCH 30.7 pg (25.0-35.0); MCHC 31.9 g/dL (31.0-37.0); MCV 96.2 fL (80.0-100.0); Mean Platelet Volume 7.2; Monocytes # (A) 0.2 k/uL (0-1.0); Monocytes % (A) 4 %; Neutrophils % (A) 80 %; Platelet Count 258 k/uL (150-450); RBC 5.06 m/uL (3.80-5.40); RDW 13.1 % (11.5-15.5)
[2020-06-27 19:00] LABS: African American GFR (CKD) >90 (>60 ml/min/1.73 sqM); Anion Gap 15 mmol/L; Blood Urea Nitrogen 17 mg/dL (7-17); Calcium 9.5 mg/dL (8.4-10.2); Carbon Dioxide 20 mmol/L (22-30); Chloride 101 mmol/L (98-107); Glucose 160 mg/dL (74-99); Non-African American GFR(CKD) >90 (>60 ml/min/1.73 sqM); Potassium 4.1 mmol/L (3.5-5.1); Sodium 136 mmol/L (137-145)
[2020-06-27] MEDS ORDERED: IBUPROFEN 400 MG TAB PO PRN (19:23)
[2020-06-27 19:24] LABS: C Reactive Protein 172.4 mg/L (<10.0)
[2020-06-27] MEDS: ACETAMINOPHEN TAB 325 MG TAB PO PRN (20:03)
[2020-06-27] MEDS: SODIUM CHLORIDE 0.9% 1,000 ML IV SCH (20:05)
--- NOTE | 2020-06-27 20:22 | P.HPPD ---
History of Present Illness 19 yo female with a history of type 1 diabetes, migraines and possible psoriasis presents for concerns of foot injury for the past 2 weeks and fever and runny nose for past week. History taken from patient and mother. Patient report 13 days ago she jumped off of the 4ft trailer and landed in her left heel on an acorn. Patient felt pain but did not had difficulty walking. No penetration through the shoe and patient reported it wasa thick sole shoe. Patient report that first week it appeared as a "goose pimple on her heel". Patient presented to the emergency room on 06/22/2020 (5 days ago) for the same concern. She report she was diagnosed with corn the foot and recommended to place a cushion follow-up with podiatry. Since then patient had been using [id number] corn Band-Aids and corn remover. With that patient report possibly mild improvement however she still reports tenderness with ambulation However on 06/22/2020 (4 days ago) patient developed fever and nasal drainage. She has been taking ibuprofen 600 mg approximately once a day. She reports she had a Tmax of 101.6 measured in axilla, and she continues to have daily fevers up until today. The nasal drainage is described as clear. It is associated with drainage to the back of the throat as well as either a right-sided or left- sided constant headache. When she does have a headache she reports light sensitivity she reports she has a history of migraines (typical to be light sensitive with her headaches). No facial tenderness. No ear drainage. She did take Dimetap once yesterday. She reports she had a history of sinusitis last winter and received Augmentin? She report that was last time she received antibiotics Patient report she had decreased activity for the past week. In decrease oral intake all week- only taking bites of food. No change in urine output. Immunizations up-to-date. No recent travel. No known sick contact. Lives at home with 8 other family members. 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 No known COVID exposure. Currently on menstrual cycle. Last week switched insulin types due to insurance. Humlog 1:7 carb count for all meals and snacks, 1:50 correction factor. Lantus 30 units at bedtime. Last hemoglobin A1c was May 2020 patient report it was around 10 Review of Systems Constitutional: Reports weight loss, Reports fair state of general health, Reports decreased activity level, Reports normal sleep Eyes: Denies change in vision, Denies pain Ears, nose, mouth, throat: Reports headaches, Reports rhinorrhea, Denies ear pain, Denies ear discharge, Denies sore throat Cardiovascular: Denies cyanosis Respiratory: Reports shortness of breath, Reports cough, Denies sputum production Gastrointestinal: Reports change in appetite, Reports nausea, Reports change in bowel habits, Denies abdominal pain, Denies vomiting Genitourinary: Denies frequency, Denies dysuria, Denies oliguria Musculoskeletal: Denies pain, Denies swelling Integumentary: Reports rash (possible psoriasis) Neurological: Denies seizures Allergic/Immunologic: Denies reaction to drugs, Denies reaction to food Past Medical History Past Medical History: Diabetes Mellitus Additional Past Medical History / Comment(s): UTIs, Type 1 DM History of Any Multi-Drug Resistant Organisms: None Reported Past Surgical History: No Surgical Hx Reported Past Anesthesia/Blood Transfusion Reactions: No Reported Reaction Past Psychological History: No Psychological Hx Reported Smoking Status: Never smoker Past Alcohol Use History: None Reported Past Drug Use History: None Reported - Past Family History Mother Family Medical History: Cancer, Diabetes Mellitus, Hypertension, Thyroid Disorder Father Family Medical History: Coronary Artery Disease (CAD) Medications and Allergies Home Medications Medication Instructions Recorded Confirmed Type Insulin Glargine,Hum.rec.anlog 30 unit SQ HS 06/27/20 06/27/20 History [Lantus Solostar] Insulin Lispro [humaLOG Kwikpen] See Protocol SQ AC-TID 06/27/20 06/27/20 History [place] 0.15mg-30mcg 1 tab PO HS 06/27/20 06/27/20 History Allergies Allergy/AdvReac Type Severity Reaction Status Date / Time No Known Allergies Allergy Verified 06/27/20 18:42 Exam Vital Signs Temp Pulse Resp BP Pulse Ox 06/27/20 17:30 100.4 F H 122 H 20 131/85 95 Intake and Output 06/27/20 06/27/20 06/27/20 06:59 14:59 22:59 Other: Weight 61.5 kg General: awake, alert, in no acute distress, appears tired Head: normocephalic, atraumatic Eyes: no discharge, sclera clear Ears: external canal normal appearing Nose: patent nares, clear discharge bilateral Mouth: no oral ulcers, good dentition, moist mucous membrane Neck: Possible tender cervical lymphadenopathy on the anterior aspect of left cervical chain, good ROM CV: Tachycardiac and regular rhythm, no murmurs, cap refill < 2 sec Resp: clear to auscultation B/L, no increased work of breathing, no crackles, no wheezing, nonproductive cough Abdomen: soft, nontender, nondistended, +bowel sounds Skin: no cyanosis, skin warm - multiple erythematous and dry patches on the extremities M/S: 5/5 strength B/L upper and lower extremities Neuro: good tone, no focal deficits. negative neck rigidity, kernig and brudzinski sign Results - Laboratory Findings 06/27/20 18:13 06/27/20 18:13 Abnormal Lab Results - Last 24 Hours (Table) 06/27/20 06/27/20 Range/Units 18:13 18:13 Hct 48.7 H (34.0-46.0) % Lymphocytes # 0.7 L (1.0-4.8) k/uL Sodium 136 L (137-145) mmol/L Carbon Dioxide 20 L (22-30) mmol/L Glucose 160 H (74-99) mg/dL C-Reactive Protein 172.4 H (<10.0) mg/L Assessment and Plan Assessment: 19 yo female with a history of type 1 diabetes, migraines and possible psoriasis presents for concerns of foot injury for the past 2 weeks and fever and runny nose for past week. Found to have dehydration/poor oral intake with elevated CRP of 172-concerns of sinusitis and corn with poorly controlled diabetes (1) Sinusitis Current Visit: Yes Status: Acute Code(s): J32.9 - CHRONIC SINUSITIS, UNSPECIFIED SNOMED Code(s): 97868617 (2) Poorly controlled type 1 diabetes mellitus Current Visit: Yes Status: Acute Code(s): E10.65 - TYPE 1 DIABETES MELLITUS WITH HYPERGLYCEMIA SNOMED Code(s): 802598333 (3) [place] of foot Current Visit: No Status: Acute Code(s): L84 - CORNS AND CALLOSITIES SNOMED Code(s): 883103782 (4) Dehydration Current Visit: No Status: Acute Code(s): E86.0 - DEHYDRATION SNOMED Code(s): 93164551 (5) Poor appetite Current Visit: Yes Status: Acute Code(s): R63.0 - ANOREXIA SNOMED Code(s): 38651707 (6) Elevated high sensitivity C-reactive protein Current Visit: Yes Status: Acute Code(s): R79.82 - ELEVATED C-REACTIVE PROTEIN (CRP) SNOMED Code(s): 424789588715354 Plan: Infectious disease suspected due to acute sinusitis - Start amoxicillin 875 mg Q12H - Obtain blood culture, CBCD and CRP - reviewed - Tylenol and ibuprofen as needed - Obtain COVID 19 swab Endocrine/ GI/FEN - Restart home insulin schedule (1:7 carb count, 1:50 Correction facto and Lantus 30 units at bedtime) - 0.9NS at 100 ml/hr - consistent carb diet [place] - Elevate extremity and encourage movement - warm and cold compresses Vital signs as per protocol Mom and patient were updated with the patient and demonstrated understanding
[2020-06-27 20:44] LABS: Glucose,Whole Blood 172 mg/dL (75-99)
[2020-06-27] MEDS ORDERED: INSULIN DETEMIR (LEVEMIR) 100 UNIT/ML SYR SQ SCH (21:00)
[2020-06-27] MEDS: AMOXICILLIN 875 MG TAB PO SCH (21:53)
[2020-06-28 07:21] LABS: Glucose,Whole Blood 238 mg/dL (75-99)
[2020-06-28] MEDS ORDERED: INSULIN ASPART (NovoLOG) 100 UNIT/ML VIAL SQ SCH (07:30)
[2020-06-28] MEDS: INSULIN ASPART (NovoLOG) 100 UNIT/ML VIAL SQ SCH ×3 (07:57→17:03)
[2020-06-28] MEDS: AMOXICILLIN 875 MG TAB PO SCH (07:57)
[2020-06-28] MEDS: ACETAMINOPHEN TAB 325 MG TAB PO PRN ×2 (07:57→17:21)
[2020-06-28] MEDS: INSULIN DETEMIR (LEVEMIR) 100 UNIT/ML SYR SQ SCH (07:57)
[2020-06-28 11:53] LABS: Glucose,Whole Blood 208 mg/dL (75-99)
[2020-06-28 12:08] VITALS: BMI 24.7
--- NOTE | 2020-06-28 16:17 | XR ---
EXAMINATION TYPE: XR chest 1V portable DATE OF EXAM: 06/28/2020 COMPARISON: 08/12/2018 HISTORY: Pneumonia. Short of breath TECHNIQUE: FINDINGS: There is poor inspiration with some patchy infiltrate and atelectasis in the mid and lower lung webb. Heart size is normal. Bony thorax is intact. There are no hilar masses. Mediastinum is n ormal. IMPRESSION: There is bilateral pneumonia and atelectasis in the mid and lower lung webb that appear s new compared to old exam. Normal heart.
--- NOTE | 2020-06-28 16:18 | XR ---
EXAMINATION TYPE: XR foot complete LT DATE OF EXAM: 06/28/2020 COMPARISON: NONE HISTORY: Foot pain infection TECHNIQUE: 2 views FINDINGS: Metatarsals are intact. I see no fracture nor dislocation. There is no sign of focal bone d estruction. IMPRESSION: Negative left foot exam.
[2020-06-28 16:45] LABS: Glucose,Whole Blood 114 mg/dL (75-99)
[2020-06-28] MEDS: ENOXAPARIN 40 MG/0.4 ML SYRINGE SQ SCH (17:18)
[2020-06-28] MEDS: AMPICILLIN-SULBACTAM 3 GM in SODIUM CHLORIDE 0.9% 100 ML IVPB SCH ×2 (17:18→23:33)
--- NOTE | 2020-06-28 17:23 | P.PN ---
Subjective Progress Note Date: 06/28/20 Principal diagnosis: Fever, diarrhea, left heel abscess Ms. Khan is a 19-year-old female with a past medical history of type 1 diabetes mellitus, migraine, possible psoriatic versus coming in with a chief complaint of left foot injury that happened couple of weeks back. Patient was also having fever with runny nose and diarrhea going on for the past few days. Patient was initially seen in the pediatric unit, and tested positive for covid 19 and later transferred to general medical floors to medical team. On 06/28/2020 - patient is comfortably sitting up in her bed appears to be no acute distress. Patient states that for the past few days she has been having low-grade fevers runny nose along with cough that is draining nature. Patient denies having any production of sputum. She also complains of diarrhea, loose watery in nature for the past few days. She denies having any blood in her stool. Patient states that when she gets up she is short of breath but lying down in bed she is doing okay. Patient denies having any chest pain or palpitations. She complains of left heel pain. She mentions that she stepped an 8 on 2 weeks back and since then noticed mild swelling in the bottom of her left heel. She complains of pain and tenderness in her left heel. On reviewing the S patient has fever of 100.0, tachycardic at 110, respiratory rate 18, saturating 95% on room and with blood pressure 1 21 x 81. Patient's labs have been reviewed white count of 5 hemoglobin of 15.5 platelets 258. Sodium 136, percussion. 0.1, chloride 101, bicarbonate 20, B and 17, creatinine 0.69. Covid 19 positive. Active Medications Acetaminophen (Acetaminophen Tab 325 Mg Tab) 650 mg PO Q6HR PRN PRN Reason: Fever and/ or Mild Pain Last Admin: 06/28/20 07:57 Dose: 650 mg Documented by: Dexamethasone (Dexamethasone 2 Mg Tab) 6 mg PO DAILY [facility] Enoxaparin Sodium (Enoxaparin 40 Mg/0.4 Ml Syringe) 40 mg SQ DAILY [facility] Last Admin: 06/28/20 17:18 Dose: 40 mg Documented by: Sodium Chloride (Saline 0.9%) 1,000 mls @ 100 mls/hr IV .Q10H [facility] Last Admin: 06/27/20 20:05 Dose: 20 mls/hr Documented by: Ampicillin Sodium/Sulbactam (Sodium 3 gm/ Sodium Chloride) 100 mls @ 200 mls/hr IVPB Q6HR [facility] Last Admin: 06/28/20 17:18 Dose: 200 mls/hr Documented by: Ibuprofen (Ibuprofen 400 Mg Tab) 400 mg PO Q6HR PRN PRN Reason: Pain Insulin Aspart (Insulin Aspart (Novolog) 100 Unit/Ml Vial) 0 unit SQ AC-TID [facility]; Protocol Last Admin: 06/28/20 17:03 Dose: Not Given Documented by: Insulin Detemir (Insulin Detemir (Levemir) 100 Unit/Ml Syr) 30 unit SQ DAILY@0700 [facility] Last Admin: 06/28/20 07:57 Dose: 30 unit Documented by: Objective - Vital Signs Vital signs: Vital Signs Temp 98.7 F 06/28/20 14:48 Pulse 104 H 06/28/20 14:48 Resp 15 06/28/20 14:48 BP 119/78 06/28/20 14:48 Pulse Ox 96 06/28/20 14:48 Intake & Output 06/27/20 06/28/20 06/28/20 18:59 06:59 18:59 Intake Total 100 700 Balance 100 700 Weight 61.5 kg 61.5 kg Intake: Intake, IV Titration 700 Amount Sodium Chloride 0.9% 1, 700 000 ml @ 100 mls/hr IV . Q10H [facility] Rx#:[id number] Oral 100 Other: Voiding Method Toilet Toilet # Voids 1 - Exam PHYSICAL EXAM GEN. APPEARANCE: alert, in no apparent distress HEAD EXAM: atraumatic, normocephalic, normal inspection EYE EXAM: normal appearance, PERRL, EOMI. Absent: scleral icterus, conjunctival injection, periorbital swelling ENT EXAM: normal exam, mucous membranes moist NECK EXAM: normal inspection. Absent: tenderness, meningismus, full ROM, lymphadenopathy RESPIRATORY EXAM: normal lung sounds bilaterally. No wheeze or crackles. CARDIOVASCULAR EXAM: regular rate, normal rhythm, normal heart sounds. T achycardia. GI/ABDOMINAL EXAM: soft, normal bowel sounds. Hyperactive bowel sounds. EXTREMITIES EXAM: No pedal edema. Left foot exam- positive for tenderness, small abscess 1 x 1 cm felt in the left heel NEUROLOGICAL EXAM: alert, oriented X3, no focal deficits - Labs CBC & Chem 7: 06/27/20 18:13 06/27/20 18:13 Labs: Abnormal Lab Results - Last 24 Hours (Table) 06/27/20 06/27/20 06/27/20 Range/Units 18:13 18:13 20:01 Hct 48.7 H (34.0-46.0) % Lymphocytes # 0.7 L (1.0-4.8) k/uL Sodium 136 L (137-145) mmol/L Carbon Dioxide 20 L (22-30) mmol/L Glucose 160 H (74-99) mg/dL POC Glucose (mg/dL) (75-99) mg/dL C-Reactive Protein 172.4 H (<10.0) mg/L Coronavirus (PCR) Detected A (Not Detectd) 06/27/20 06/28/20 06/28/20 Range/Units 20:43 07:16 11:52 Hct (34.0-46.0) % Lymphocytes # (1.0-4.8) k/uL Sodium (137-145) mmol/L Carbon Dioxide (22-30) mmol/L Glucose (74-99) mg/dL POC Glucose (mg/dL) 172 H 238 H 208 H (75-99) mg/dL C-Reactive Protein (<10.0) mg/L Coronavirus (PCR) (Not Detectd) 06/28/20 Range/Units 16:43 Hct (34.0-46.0) % Lymphocytes # (1.0-4.8) k/uL Sodium (137-145) mmol/L Carbon Dioxide (22-30) mmol/L Glucose (74-99) mg/dL POC Glucose (mg/dL) 114 H (75-99) mg/dL C-Reactive Protein (<10.0) mg/L Coronavirus (PCR) (Not Detectd) Assessment and Plan Assessment: ASSESSMENT Left heel abscess/cellulitis COVID 19 infetion Type 1 diabetes mellitus poorly controlled Diarrhea- possibly due to COVID -19 PLAN: For left heel abscess/cellulitis ID Dr. Jarrett has been consulted. Patient is Covid 19 positive, symptomatic management. Pulmonary consult was obtained. Continue with GI DVT prophylaxis. Further recommendations depending on the progress of the patient.
[2020-06-28] MEDS: dexAMETHasone 2 MG TAB PO SCH (17:44)
[2020-06-28] MEDS: SODIUM CHLORIDE 0.9% 1,000 ML IV SCH (18:48)
[2020-06-28 21:29] LABS: Glucose,Whole Blood 112 mg/dL (75-99)
--- NOTE | 2020-06-28 23:52 | P.CONS ---
History of Present Illness - Reason for Consult Consult date: 06/28/20 Left foot infection and covid 19 Requesting physician: Kinsey Braun - Chief Complaint Left heel pain x 2 weeks - History of Present Illness Patient is a 19 year female with past medical history significant for type 1 diabetes mellitus possible psoriasis admitted to the hospital for evaluation of left foot pain and swelling in this patient apparently jumped off or foot trailer and landed on her left heel on an acron, patient subsequently has been complaining of pain to the left heel area and has developed a small area of point tenderness and some whitish discoloration, patient mentioned she try to drink the area with her male but nothing came out patient describing the pain to be more of a throbbing in nature 5-6 out of 10 and no radiation and worse with weightbearing, patient also complaining of shortness of breath and did have a mild cough which is dry in nature no pleuritic chest pain no URI symptoms on arrival to the ER the patient did have low-grade fever 100.4F patient did have a normal white count with lymphopenia and did have elevated CR P, patient did have maguire PCR testing which came back positive that prompted this infection disease consultation for evaluation of covid 19 and left foot infection Review of Systems Positive point has been mentioned in the HPI rest of the systems are negative Past Medical History Past Medical History: Diabetes Mellitus Additional Past Medical History / Comment(s): UTIs, Type 1 DM History of Any Multi-Drug Resistant Organisms: None Reported Past Surgical History: No Surgical Hx Reported Past Anesthesia/Blood Transfusion Reactions: No Reported Reaction Past Psychological History: No Psychological Hx Reported Smoking Status: Never smoker Past Alcohol Use History: None Reported Past Drug Use History: None Reported - Past Family History Mother Family Medical History: Cancer, Diabetes Mellitus, Hypertension, Thyroid Disorder Father Family Medical History: Coronary Artery Disease (CAD) Medications and Allergies Home Medications Medication Instructions Recorded Confirmed Type Insulin Glargine,Hum.rec.anlog 30 unit SQ HS 06/27/20 06/27/20 History [Lantus Solostar] Insulin Lispro [humaLOG Kwikpen] See Protocol SQ AC-TID 06/27/20 06/27/20 History Kurvelo 0.15mg-30mcg 1 tab PO HS 06/27/20 06/27/20 History Allergies Allergy/AdvReac Type Severity Reaction Status Date / Time No Known Allergies Allergy Verified 06/27/20 18:42 Physical Exam Vitals: Vital Signs Temp Pulse Resp BP Pulse Ox 06/28/20 14:48 98.7 F 104 H 15 119/78 96 06/28/20 08:00 111 H 18 06/28/20 07:00 100.0 F H 111 H 18 121/81 95 06/28/20 00:00 100 18 06/27/20 23:15 98.7 F 108 H 18 133/89 95 06/27/20 20:00 98.7 F 120 H 18 145/88 98 06/27/20 17:30 100.4 F H 122 H 20 131/85 95 Intake and Output 06/28/20 06/28/20 06/28/20 06:59 14:59 22:59 Intake Total 100 700 Balance 100 700 Intake: Intake, IV Titration 700 Amount Sodium Chloride 0.9% 1, 700 000 ml @ 100 mls/hr IV . Q10H [facility] Rx#:[id number] Oral 100 Other: Voiding Method Toilet Toilet # Voids 1 Weight 61.5 kg GENERAL DESCRIPTION: Young female lying in bed, no distress. No tachypnea or accessory muscle of respiration use. HEENT: Shows Pallor , no scleral icterus. Oral mucous membrane is dry. No phar yngeal erythema or thrush NECK: Trachea central, no thyromegaly. LUNGS: Unlabored breathing. Coarse breath sounds bilaterally. No wheeze or crackle. HEART: S1, S2, regular rate and rhythm. No loud murmur ABDOMEN: Soft, no tenderness , guarding or rigidity, no organomegaly EXTREMITIES: No edema of feet. Left heel did have an area of point tenderness and white discoloration no drainage SKIN: No rash, no masses palpable. NEUROLOGICAL: The patient is awake, alert, oriented x3, mood and affect normal. Results CBC & Chem 7: 06/27/20 18:13 06/27/20 18:13 Labs: Abnormal Lab Results - Last 24 Hours (Table) 06/27/20 06/27/20 06/27/20 Range/Units 18:13 18:13 20:01 Hct 48.7 H (34.0-46.0) % Lymphocytes # 0.7 L (1.0-4.8) k/uL Sodium 136 L (137-145) mmol/L Carbon Dioxide 20 L (22-30) mmol/L Glucose 160 H (74-99) mg/dL POC Glucose (mg/dL) (75-99) mg/dL C-Reactive Protein 172.4 H (<10.0) mg/L Coronavirus (PCR) Detected A (Not Detectd) 06/27/20 06/28/20 06/28/20 Range/Units 20:43 07:16 11:52 Hct (34.0-46.0) % Lymphocytes # (1.0-4.8) k/uL Sodium (137-145) mmol/L Carbon Dioxide (22-30) mmol/L Glucose (74-99) mg/dL POC Glucose (mg/dL) 172 H 238 H 208 H (75-99) mg/dL C-Reactive Protein (<10.0) mg/L Coronavirus (PCR) (Not Detectd) Assessment and Plan Assessment: 1- patient with left diabetic foot infection in this patient who did have a history of jumped from a trailer landing on her left heel with the area off point tenderness and some whitish discoloration with concern for possible abscess formation And need to rule out any foreign body 2- Patient with low-grade fever shortness of breath and cough now with evidence of positive covid 19 test concerning for covid 19 pneumonia (1) Diabetic infection of left foot Current Visit: Yes Status: Acute Code(s): E11.628 - TYPE 2 DIABETES MELLITUS WITH OTHER SKIN COMPLICATIONS; L08.9 - LOCAL INFECTION OF THE SKIN AND SUBCUTANEOUS TISSUE, UNSP SNOMED Code(s): 40826012 (2) COVID-19 Current Visit: Yes Status: Acute Code(s): U07.1 - COVID-19 SNOMED Code(s): 443354724 Plan: 1-we will obtain x-rays of the left foot to make sure no evidence of any foreign body 2-check a chest x-ray 3-we will start the patient on Unasyn 3 g every 6 hours to cover for left diabetic foot infection 4-we will add Lovenox Decadron and Zithromax for underlying covid 19 infection, patient currently with no evidence of any hypoxemia and would not qualify for Remdisivir 5-droplet isolation We will follow on clinical condition and cultures to further adjust medication if needed Thank you for this consultation will follow this patient with you Time with Patient: Greater than 30
[2020-06-29] MEDS: AMPICILLIN-SULBACTAM 3 GM in SODIUM CHLORIDE 0.9% 100 ML IVPB SCH ×4 (05:42→23:07)
[2020-06-29 06:32] LABS: Basophils % (A) 1 %; Eosinophils % (A) 0 %; HCT 41.5 % (34.0-46.0); HGB 13.5 gm/dL (11.4-16.0); Lymphocytes # (A) 0.8 k/uL (1.0-4.8); Lymphocytes % (A) 20 %; MCHC 32.4 g/dL (31.0-37.0); MCV 95.5 fL (80.0-100.0); Mean Platelet Volume 7.1; Monocytes # (A) 0.2 k/uL (0-1.0); Monocytes % (A) 5 %; Neutrophils # (A) 2.8 k/uL (1.3-7.7); Neutrophils % (A) 72 %; Platelet Count 230 k/uL (150-450); RBC 4.35 m/uL (3.80-5.40); RDW 12.6 % (11.5-15.5); WBC 3.9 k/uL (3.8-10.6)
[2020-06-29 07:26] LABS: Glucose,Whole Blood 248 mg/dL (75-99)
[2020-06-29] MEDS: dexAMETHasone 2 MG TAB PO SCH (07:36)
[2020-06-29] MEDS: AZITHROMYCIN 500 MG TAB PO SCH (07:36)
[2020-06-29] MEDS: ENOXAPARIN 40 MG/0.4 ML SYRINGE SQ SCH (07:36)
[2020-06-29] MEDS: INSULIN DETEMIR (LEVEMIR) 100 UNIT/ML SYR SQ SCH (07:37)
[2020-06-29] MEDS: INSULIN ASPART (NovoLOG) 100 UNIT/ML VIAL SQ SCH ×3 (07:37→16:51)
[2020-06-29 09:17] LABS: Albumin 3.9 g/dL (3.80-4.90); Albumin/Globulin Ratio 1.86 (1.60-3.17); Anion Gap 12.7 mmol/L (4.00-12.00); C Reactive Protein 7.9 mg/dL (0.0-0.8); Calcium 8.4 mg/dL (8.7-10.3); Carbon Dioxide 23.3 mmol/L (21.6-31.8); Globulin 2.1 g/dL (1.6-3.3); Non-African American GFR(CKD) 130.3 (60.0-200.0); Potassium 4.1 mmol/L (3.5-5.5); Total Bilirubin 0.3 mg/dL (0.3-1.2)
[2020-06-29 11:31] LABS: Glucose,Whole Blood 316 mg/dL (75-99)
--- NOTE | 2020-06-29 15:22 | P.CNPUL ---
History of Present Illness Consult date: 06/29/20 Requesting physician: Kinsey Braun Reason for consult: other (+ CoVID 19) Chief complaint: Pain in the left heel History of present illness: This is a very pleasant 19-year-old female patient who was originally admitted to the pediatric unit for complaints of pain in the left heel. Almost 2 weeks ago she had jumped off a forefoot trailer and landed on her left heel on top of an acorn. She had had ongoing issues with discomfort. She does have a history of diabetes mellitus, type I, migraines and possible psoriasis. Prior to admission she had also developed a fever on 06/22/2020 with nasal congestion and drainage. She was found to be CoVID 19-positive on 06/27/2020 and transferred from the pediatric unit to the regular medical floor. She is seen today in consultation. She is currently awake and alert in no acute distress. Resting quite comfortably in bed. Maintaining O2 saturations in the low 90s on room air. She's been afebrile. She denies any worsening shortness of breath cough or congestion. Chest x-ray did reveal some patchy infiltrate/atelectasis of the lower lung webb. There is poor inspiration noted. White count 3.9. Hemoglobin 13.5. Lymphocytes 0.8. Sodium 140. Potassium 4.1. D-dimer 0.23. Pro calcitonin 0.06. She had been initiated on Unasyn and azithromycin along with Lovenox and dexamethasone. Infectious disease is on the case. Review of Systems REVIEW OF SYSTEMS: CONSTITUTIONAL: Positive for fever. Denies any recent significant weight loss or weight gain. EYES: Denies change in vision. EARS, NOSE, MOUTH, THROAT: Denies headaches, denies sore throat. CARDIOVASCULAR: Denies chest pain, palpitations or syncopal episodes. RESPIRATORY: Positive for shortness of breath, cough, congestion no hemoptysis. GASTROINTESTINAL: Denies change in appetite, denies abdominal pain GENITOURINARY: Denies hematuria, denies infections. MUSKULOSKELETAL: Pain in the left heel. INTEGUMENTARY: Denies rash, denies eczema. NEUROLOGICAL: Denies recent memory loss, no recent seizure activity. PSYCHIATRIC: Denies anxiety, denies depression. HEMATOLOGIC/LYMPHATIC: Denies anemia, denies enlarged lymph nodes. Past Medical History Past Medical History: Diabetes Mellitus Additional Past Medical History / Comment(s): UTIs, Type 1 DM History of Any Multi-Drug Resistant Organisms: None Reported Past Surgical History: No Surgical Hx Reported Past Anesthesia/Blood Transfusion Reactions: No Reported Reaction Past Psychological History: No Psychological Hx Reported Smoking Status: Never smoker Past Alcohol Use History: None Reported Past Drug Use History: None Reported - Past Family History Mother Family Medical History: Cancer, Diabetes Mellitus, Hypertension, Thyroid Disorder Father Family Medical History: Coronary Artery Disease (CAD) Medications and Allergies Home Medications Medication Instructions Recorded Confirmed Type Insulin Glargine,Hum.rec.anlog 30 unit SQ HS 06/27/20 06/27/20 History [Lantus Solostar] Insulin Lispro [humaLOG Kwikpen] See Protocol SQ AC-TID 06/27/20 06/27/20 History Kurvelo 0.15mg-30mcg 1 tab PO HS 06/27/20 06/27/20 History Allergies Allergy/AdvReac Type Severity Reaction Status Date / Time No Known Allergies Allergy Verified 06/27/20 18:42 Physical Exam Vitals: Vital Signs Temp Pulse Resp BP Pulse Ox 06/29/20 07:39 99 16 06/29/20 07:00 98.3 F 91 16 142/90 92 L 06/29/20 02:58 98.7 F 99 16 147/90 93 L 06/28/20 19:39 98.5 F 98 16 135/88 93 L Intake and Output 06/29/20 06/29/20 06/29/20 06:59 14:59 22:59 Intake Total 100 Balance 100 Intake: Intake, IV Titration 100 Amount Ampicillin-Sulbactam 3 gm 100 In Sodium Chloride 0.9% 100 ml @ 200 mls/hr IVPB Q6HR [facility] Rx#:[id number] Other: Voiding Method Toilet Toilet # Voids 3 GENERAL EXAM: Alert, very pleasant 19-year-old female patient, on room air, comfortable in no apparent distress. HEAD: Normocephalic. EYES: Normal reaction of pupils, equal size. NOSE: Clear with pink turbinates. THROAT: No erythema or exudates. NECK: No masses, no JVD. CHEST: No chest wall deformity. LUNGS: Equal air entry with no crackles, wheeze, rhonchi or dullness. CVS: S1 and S2 normal with no audible murmur, regular rhythm. ABDOMEN: No hepatosplenomegaly, normal bowel sounds, no guarding or rigidity. SPINE: No scoliosis or deformity SKIN: No rashes CENTRAL NERVOUS SYSTEM: No focal deficits, tone is normal in all 4 extremities. EXTREMITIES: There is no peripheral edema. No clubbing, no cyanosis. Peripheral pulses are intact. Results - Laboratory Findings CBC and BMP: 06/29/20 06:09 06/29/20 06:09 PT/INR, D-dimer D-Dimer 0.23 mg/L FEU (<0.60) 06/29/20 06:09 Abnormal lab findings: Abnormal Labs 06/27/20 06/27/20 06/27/20 18:13 18:13 20:01 Hct 48.7 H Lymphocytes # 0.7 L Sodium 136 L Carbon Dioxide 20 L Anion Gap Glucose 160 H POC Glucose (mg/dL) Calcium C-Reactive Protein 172.4 H Total Protein Coronavirus (PCR) Detected A 06/27/20 06/28/20 06/28/20 20:43 07:16 11:52 Hct Lymphocytes # Sodium Carbon Dioxide Anion Gap Glucose POC Glucose (mg/dL) 172 H 238 H 208 H Calcium C-Reactive Protein Total Protein Coronavirus (PCR) 06/28/20 06/28/20 06/29/20 16:43 21:25 06:09 Hct Lymphocytes # 0.8 L Sodium Carbon Dioxide Anion Gap Glucose POC Glucose (mg/dL) 114 H 112 H Calcium C-Reactive Protein Total Protein Coronavirus (PCR) 06/29/20 06/29/20 06/29/20 06:09 07:24 11:29 Hct Lymphocytes # Sodium Carbon Dioxide Anion Gap 12.70 H Glucose 272 H POC Glucose (mg/dL) 248 H 316 H Calcium 8.4 L C-Reactive Protein 7.9 H Total Protein 6.0 L Coronavirus (PCR) - Diagnostic Findings Chest x-ray: image reviewed Assessment and Plan Assessment: 1 Left heel pain secondary to jumping off a trailer landing and an acorn in a patient with diabetes mellitus type 1 2 Acute febrile illness secondary to acute CoVID 19 pneumonitis 3 Acute hypoxic respiratory failure secondary to above 4 Diabetes mellitus, type I 5 History of migraines 6 Possible psoriasis Plan: The patient was seen and evaluated by Dr. Saucedo Chest x-ray and labs reviewed She is cleared for discharge from the pulmonary standpoint Infectious disease is on the case and managing antibiotics Isolation precautions Return if any worsening symptoms I, the cosigning physician, performed a history & physical examination of the patient. Lungs sounds are clear. Maintaining good O2 saturations in the 90s on room air. I discussed the assessment and plan of care with my nurse practitioner, Doris Norman. I attest to the above consultation as dictated by her. Time with Patient: Greater than 30
--- NOTE | 2020-06-29 16:18 | P.PN ---
Subjective Progress Note Date: 06/29/20 Principal diagnosis: Fever, diarrhea, left heel abscess Ms. Khan is a 19-year-old female with a past medical history of type 1 diabetes mellitus, migraine, possible psoriatic versus coming in with a chief complaint of left foot injury that happened couple of weeks back. Patient was also having fever with runny nose and diarrhea going on for the past few days. Chest x-ray with right-sided pneumonia patient did have CT angiogram of the chest which was negative for PE which was cavitated left pulmonary infiltrate nonspecific today for bilateral groundglass pulmonary interstitial infiltrate, subsequently maguire PCR came back positive patient has been admitted to the hospital. Patient was initially seen in the pediatric unit, and tested positive for covid 19 and later transferred to general medical floors to medical team. On 06/28/2020 - patient is comfortably sitting up in her bed appears to be no acute distress. Patient states that for the past few days she has been having low-grade fevers runny nose along with cough that is draining nature. Patient denies having any production of sputum. She also complains of diarrhea, loose watery in nature for the past few days. She denies having any blood in her stool. Patient states that when she gets up she is short of breath but lying down in bed she is doing okay. Patient denies having any chest pain or palp itations. She complains of left heel pain. She mentions that she stepped an 8 on 2 weeks back and since then noticed mild swelling in the bottom of her left heel. She complains of pain and tenderness in her left heel. On reviewing the S patient has fever of 100.0, tachycardic at 110, respiratory rate 18, saturating 95% on room and with blood pressure 1 21 x 81. Patient's labs have been reviewed white count of 5 hemoglobin of 15.5 platelets 258. Sodium 136, percussion. 0.1, chloride 101, bicarbonate 20, B and 17, creatinine 0.69. Covid 19 positive. On 06/29/2020 - patient is sitting up in her bed appears to be in acute distress. Patient states that her diarrhea is improved. She just had a bowel movement that was well formed. Patient continues to have cough. She denies having any difficulty in breathing. Patient still has pain over left heel area. She denies having any swelling in her legs. Patient denies having any chest pain or palpitations. No dysuria or hematuria. On reviewing the vitals patient's temperature of 97.7, heart rate 68, respiratory 16, blood pressure 1:30/60, saturating at 94% on room air. On reviewing her labs, white count of 5.6, hemoglobin 12, platelets 157. Sodium 143, potassium 4, chloride 111, bicarbonate 23, BUN 13, creatinine 0.6. LDH 357, CRP 7. Active Medications Acetaminophen (Acetaminophen Tab 325 Mg Tab) 650 mg PO Q6HR PRN PRN Reason: Fever and/ or Mild Pain Last Admin: 06/28/20 17:21 Dose: 650 mg Documented by: Azithromycin (Azithromycin 500 Mg Tab) 500 mg PO DAILY [facility] Last Admin: 06/29/20 07:36 Dose: 500 mg Documented by: Dexamethasone (Dexamethasone 2 Mg Tab) 6 mg PO DAILY [facility] Last Admin: 06/29/20 07:36 Dose: 6 mg Documented by: Enoxaparin Sodium (Enoxaparin 40 Mg/0.4 Ml Syringe) 40 mg SQ DAILY [facility] Last Admin: 06/29/20 07:36 Dose: 40 mg Documented by: Sodium Chloride (Saline 0.9%) 1,000 mls @ 100 mls/hr IV .Q10H [facility] Last Admin: 06/28/20 18:48 Dose: Not Given Documented by: Ampicillin Sodium/Sulbactam (Sodium 3 gm/ Sodium Chloride) 100 mls @ 200 mls/hr IVPB Q6HR [facility] Last Admin: 06/29/20 11:40 Dose: 200 mls/hr Documented by: Ibuprofen (Ibuprofen 400 Mg Tab) 400 mg PO Q6HR PRN PRN Reason: Pain Insulin Aspart (Insulin Aspart (Novolog) 100 Unit/Ml Vial) 0 unit SQ AC-TID [facility]; Protocol Last Admin: 06/29/20 11:40 Dose: 5 unit Documented by: Insulin Detemir (Insulin Detemir (Levemir) 100 Unit/Ml Syr) 30 unit SQ DAILY@0700 [facility] Last Admin: 06/29/20 07:37 Dose: 30 unit Documented by: Objective - Vital Signs Vital signs: Vital Signs Temp 98.0 F 06/29/20 15:00 Pulse 113 H 06/29/20 15:00 Resp 16 06/29/20 15:00 BP 131/89 06/29/20 15:00 Pulse Ox 92 L 11/08/20 15:00 Intake & Output 06/28/20 06/29/20 06/29/20 18:59 06:59 18:59 Intake Total 700 300 100 Balance 700 300 100 Weight 61.5 kg Intake: Intake, IV Titration 700 300 100 Amount Ampicillin-Sulbactam 3 gm 100 In Sodium Chloride 0.9% 100 ml @ 200 mls/hr IVPB Q6HR [facility] Rx#:[id number] Sodium Chloride 0.9% 1, 700 300 000 ml @ 100 mls/hr IV . Q10H [facility] Rx#:[id number] Other: Voiding Method Toilet Toilet Toilet # Voids 3 - Exam PHYSICAL EXAM GEN. APPEARANCE: alert, in no apparent distress HEENT: No pallor. No icterus. No JVD. RESPIRATORY EXAM: normal lung sounds bilaterally. No wheeze or crackles. CARDIOVASCULAR EXAM: regular rate, normal rhythm, normal heart sounds. Tachycardia. GI/ABDOMINAL EXAM: soft, normal bowel sounds. Hyperactive bowel sounds. EXTREMITIES EXAM: No pedal edema. Left foot exam- positive for tenderness, small abscess 1 x 1 cm felt in the left heel NEUROLOGICAL EXAM: alert, oriented X3, no focal deficits Skin: Positive for guttate psoriasis - Labs CBC & Chem 7: 06/29/20 06:09 06/29/20 06:09 Labs: Abnormal Lab Results - Last 24 Hours (Table) 06/28/20 06/28/20 06/29/20 Range/Units 16:43 21:25 06:09 Lymphocytes # 0.8 L (1.0-4.8) k/uL Anion Gap (4.00-12.00) mmol/L Glucose (70-110) mg/dL POC Glucose (mg/dL) 114 H 112 H (75-99) mg/dL Calcium (8.7-10.3) mg/dL C-Reactive Protein (0.0-0.8) mg/dL Total Protein (6.2-8.2) g/dL 06/29/20 06/29/20 06/29/20 Range/Units 06:09 07:24 11:29 Lymphocytes # (1.0-4.8) k/uL Anion Gap 12.70 H (4.00-12.00) mmol/L Glucose 272 H (70-110) mg/dL POC Glucose (mg/dL) 248 H 316 H (75-99) mg/dL Calcium 8.4 L (8.7-10.3) mg/dL C-Reactive Protein 7.9 H (0.0-0.8) mg/dL Total Protein 6.0 L (6.2-8.2) g/dL Microbiology - Last 24 Hours (Table) 06/27/20 18:13 Blood Culture - Preliminary Blood No Growth after 24 hours Assessment and Plan Assessment: ASSESSMENT Left heel abscess/cellulitis COVID 19 infetion Type 1 diabetes mellitus poorly controlled Diarrhea- possibly due to COVID -19 - resolved PLAN: As the patient had diarrhea, C. diff has been ordered. But patient stated his all, she had a formed bowel movement today. Yesterday Dr. Jarrett has been consulted, she has been started on Zosyn and azithromycin. Today I spoke with ID doctor Kolby, who recommends that the patient be evaluated by vascular Dr. Appiah for possible I and D of the left heel abscess, will be obtained. Patient is Covid 19 positive, symptomatic management. Continue with GI DVT prophylaxis. Further recommendations depending on the progress of the patient.
[2020-06-29 16:30] LABS: Glucose,Whole Blood 238 mg/dL (75-99)
[2020-06-29] MEDS: SODIUM CHLORIDE 0.9% 1,000 ML IV SCH (19:28)
[2020-06-29 21:10] LABS: Glucose,Whole Blood 271 mg/dL (75-99)
[2020-06-30] MEDS: AMPICILLIN-SULBACTAM 3 GM in SODIUM CHLORIDE 0.9% 100 ML IVPB SCH ×2 (05:19→11:35)
--- NOTE | 2020-06-30 05:53 | PN ---
PROGRESS NOTE DATE OF SERVICE: 06/29/2020 REASON FOR FOLLOWUP: 1. Left diabetic foot infection. 2. COVID-19 infection. INTERVAL HISTORY: The patient is currently afebrile. Patient is breathing comfortably. Patient denies having any chest pain or shortness of breath. Minimal cough. No nausea, vomiting, abdominal pain. Still complaining of pain to the left heel area especially when she walks on it. There is no drainage. PHYSICAL EXAMINATION: Blood pressure 131/89 with a pulse of 113, temperature 98. She is 92% on room air. General description is a middle-aged female lying in bed in no distress. RESPIRATORY SYSTEM: Unlabored breathing, decreased intensity of breath sounds. No wheeze. HEART: S1, S2. Regular rate and rhythm. ABDOMEN: Soft, no tenderness. Left heel did have an area of fluctuation and possible abscess formation slightly increased. LABS: Hemoglobin 13.5, white count 3.9, BUN of 9, creatinine 0.6. DIAGNOSTIC IMPRESSION AND PLAN: 1. Patient with left diabetic foot infection with left heel possible abscess. Vascular Surgery has been consulted for possible bedside drainage and cultures. Continue with Unasyn. Discharge medication based on culture. 2. Patient with COVID-19 infection in this patient is currently not hypoxic, is on Lovenox and Decadron and Zithromax and seems to have shown improvement. Continue with supportive care. MMODL / IJN: [id number] /
[2020-06-30 06:34] LABS: Basophils % (A) 1 %; Eosinophils % (A) 0 %; HCT 40.7 % (34.0-46.0); HGB 13.4 gm/dL (11.4-16.0); Lymphocytes # (A) 1.8 k/uL (1.0-4.8); Lymphocytes % (A) 24 %; MCH 30.6 pg (25.0-35.0); MCV 92.8 fL (80.0-100.0); Mean Platelet Volume 7.2; Monocytes # (A) 0.3 k/uL (0-1.0); Monocytes % (A) 4 %; Neutrophils # (A) 5.1 k/uL (1.3-7.7); Neutrophils % (A) 70 %; Platelet Count 313 k/uL (150-450); RBC 4.38 m/uL (3.80-5.40); RDW 12.5 % (11.5-15.5); WBC 7.3 k/uL (3.8-10.6)
[2020-06-30 07:13] LABS: Glucose,Whole Blood 94 mg/dL (75-99)
[2020-06-30] MEDS: INSULIN ASPART (NovoLOG) 100 UNIT/ML VIAL SQ SCH ×2 (08:11→11:50)
[2020-06-30] MEDS: INSULIN DETEMIR (LEVEMIR) 100 UNIT/ML SYR SQ SCH (08:15)
[2020-06-30] MEDS: AZITHROMYCIN 500 MG TAB PO SCH (08:15)
[2020-06-30] MEDS: dexAMETHasone 2 MG TAB PO SCH (08:15)
[2020-06-30] MEDS: ENOXAPARIN 40 MG/0.4 ML SYRINGE SQ SCH (08:15)
[2020-06-30 11:01] LABS: Anion Gap 11.1 mmol/L (4.00-12.00); BUN/Creat Ratio 18.33 Ratio (12.00-20.00); Calcium 8.7 mg/dL (8.7-10.3); Carbon Dioxide 23.9 mmol/L (21.6-31.8); Non-African American GFR(CKD) 130.3 (60.0-200.0); Potassium 3.6 mmol/L (3.5-5.5)
[2020-06-30] MEDS ORDERED: LIDOCAINE 1% INJ 10MG/ML (20 ML MDV) SQ ONE (11:06)
[2020-06-30 11:44] LABS: Glucose,Whole Blood 95 mg/dL (75-99)
--- NOTE | 2020-06-30 12:46 | P.GSCN ---
History of Present Illness History of present illness: 19-year-old pleasant female patient came with history of for trauma to the left heel no history of insect bite patient also came with the fever and diarrhea and pneumonia and found to have it covered positive patient has developed some abscess on the left heel plantar aspect I was consulted for I&D. Medical history history of diabetes controlled with medication On examination neck supple chest few crackles Abdomen soft nontender Vascular femoral pulses are present dorsal pedis palpable patient has a abscess on the left heel measurement is a 68 mm on the plantar plantar S aspect of the left heel which is tender and some fluctuation noted Plan is a I&D of the abscess and recurrent deep culture Past Medical History Past Medical History: Diabetes Mellitus Additional Past Medical History / Comment(s): UTIs, Type 1 DM History of Any Multi-Drug Resistant Organisms: None Reported Past Surgical History: No Surgical Hx Reported Past Anesthesia/Blood Transfusion Reactions: No Reported Reaction Past Psychological History: No Psychological Hx Reported Smoking Status: Never smoker Past Alcohol Use History: None Reported Past Drug Use History: None Reported - Past Family History Mother Family Medical History: Cancer, Diabetes Mellitus, Hypertension, Thyroid Disorder Father Family Medical History: Coronary Artery Disease (CAD) Medications and Allergies Home Medications Medication Instructions Recorded Confirmed Type Insulin Glargine,Hum.rec.anlog 30 unit SQ HS 06/27/20 06/27/20 History [Lantus Solostar] Insulin Lispro [humaLOG Kwikpen] See Protocol SQ AC-TID 06/27/20 06/27/20 History Kurvelo 0.15mg-30mcg 1 tab PO HS 06/27/20 06/27/20 History Amoxic-Pot Clav 875-125Mg 1 tab PO Q12HR 10 Days #20 tab 06/30/20 Rx [Augmentin 875-125] Sulfamethox-Tmp 800-160Mg [Bactrim 1 tab PO Q12HR #20 tab 06/30/20 Rx DS 800-160 mg] Allergies Allergy/AdvReac Type Severity Reaction Status Date / Time No Known Allergies Allergy Verified 06/27/20 18:42 Surgical - Exam Vital Signs Temp Pulse Resp BP Pulse Ox 100.4 F H 122 H 20 131/85 95 06/27/20 17:30 06/27/20 17:30 06/27/20 17:30 06/27/20 17:30 06/27/20 17:30 Results - Labs 06/30/20 05:45 06/30/20 05:45 Abnormal Lab Results - Last 24 Hours (Table) 06/29/20 06/29/20 06/30/20 Range/Units 16:27 21:09 05:45 Glucose 122 H (70-110) mg/dL POC Glucose (mg/dL) 238 H 271 H (75-99) mg/dL Microbiology - Last 24 Hours (Table) 06/27/20 18:13 Blood Culture - Preliminary Blood No Growth after 48 hours Diabetes panel 06/30/20 Range/Units 05:45 Sodium 141 (135-145) mmol/L Potassium 3.6 (3.5-5.5) mmol/L Chloride 106 (96-109) mmol/L Carbon Dioxide 23.9 (21.6-31.8) mmol/L BUN 11.0 (9.0-27.0) mg/dL Creatinine 0.6 (0.6-1.5) mg/dL Glucose 122 H (70-110) mg/dL Calcium 8.7 (8.7-10.3) mg/dL Calcium panel 06/30/20 Range/Units 05:45 Calcium 8.7 (8.7-10.3) mg/dL Pituitary panel 06/30/20 Range/Units 05:45 Sodium 141 (135-145) mmol/L Potassium 3.6 (3.5-5.5) mmol/L Chloride 106 (96-109) mmol/L Carbon Dioxide 23.9 (21.6-31.8) mmol/L BUN 11.0 (9.0-27.0) mg/dL Creatinine 0.6 (0.6-1.5) mg/dL Glucose 122 H (70-110) mg/dL Calcium 8.7 (8.7-10.3) mg/dL Adrenal panel 06/30/20 Range/Units 05:45 Sodium 141 (135-145) mmol/L Potassium 3.6 (3.5-5.5) mmol/L Chloride 106 (96-109) mmol/L Carbon Dioxide 23.9 (21.6-31.8) mmol/L BUN 11.0 (9.0-27.0) mg/dL Creatinine 0.6 (0.6-1.5) mg/dL Glucose 122 H (70-110) mg/dL Calcium 8.7 (8.7-10.3) mg/dL
--- NOTE | 2020-06-30 12:48 | P.PCN ---
Description of Procedure: Preop diagnoses is left heel measurement is 6 x 6 mm tender Post procedure same Procedure patient was seen in the room left foot was prepped and draped applied sterile manner. 1% lidocaine for an infected using the 11 blade we made a cruciate incision to the left heel pus came out we took the deep culture pus was drained and wound was irrigated with saline Aquacel silver rope was applied to the wound dressing applied patient tolerated the procedure well Plan is if patient goes home continue with Aquacel silver change her dressing every day and we'll follow in the wound clinic next week discussed with the Dr. Ordonez
[2020-06-30 15:15] VITALS: BP 143/91; PULSE 112; RESP 18; TEMP 98.2
--- NOTE | 2020-06-30 16:00 | P.DS ---
Providers Date of admission: 06/27/20 17:08 Expected date of discharge: 06/30/20 Attending physician: Roxana Kennedy Consults: 06/28/20 15:12 Consult Physician Routine Consulting Provider: Winter Saucedo Consult Reason/Comments: COVID Do you want consulting provider notified?: Yes 06/28/20 15:18 Consult Physician Routine Consulting Provider: Dustin Merritt Consult Reason/Comments: COVID and Left heel abscess Do you want consulting provider notified?: Yes 06/29/20 15:34 Consult Physician Routine Consulting Provider: Franky Appiah Consult Reason/Comments: Left foot abscess, possible I&D Do you want consulting provider notified?: Yes Primary care physician: [facility] Course: Mrs. 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 Along with the patient was having fevers and runny nose and diarrhea going on for the past few days. Initially patient was seen in the pediatric unit, tested positive for cocaine and 19 and later transferred to the general medical floors to the medical team. Hospital course - patient's nausea vomiting and diarrhea have resolved. She had low-grade fevers and mild cough. But she was maintaining her saturations above 90 on room air. Infectious disease Dr. Merritt has been consulted for the left heel abscess. Patient was started on Unasyn and x-rays of the foot were obtained. X-rays showed no bony involvement. Vascular surgery Dr. Appiah has been consulted for I&D of the abscess. On 06/30/2020 patient had I&D of the abscess, spoke with Dr. Appiah who said there was a lot of pus coming out from the abscess. The patient tolerated the procedure well. And after discussion with ID Dr. Merritt, patient is being discharged home on Augmentin and Bactrim. Vital Signs - 8 hr 06/30/20 15:00 Temperature 98.2 F Pulse Rate [ 112 H Pulse Oximetery ] Respiratory 18 Rate Blood Pressure 143/91 [Left Arm] O2 Sat by Pulse 91 L Oximetry GEN. APPEARANCE: alert, in no apparent distress HEAD EXAM: atraumatic, normocephalic, normal inspection EYE EXAM: normal appearance, PERRL, EOMI. Absent: scleral icterus, conjunctival injection, periorbital swelling ENT EXAM: normal exam, mucous membranes moist NECK EXAM: normal inspection. Absent: tenderness, meningismus, full ROM, lymphadenopathy RESPIRATORY EXAM: normal lung sounds bilaterally. No wheeze or crackles. CARDIOVASCULAR EXAM: regular rate, normal rhythm, normal heart sounds. Tachycardia. GI/ABDOMINAL EXAM: soft, normal bowel sounds. Hyperactive bowel sounds. EXTREMITIES EXAM: No pedal edema. Left foot exam- positive for tenderness, dressing in place. NEUROLOGICAL EXAM: alert, oriented X3, no focal deficits DISCHARGE DIAGNOSIS Left heel abscess- s/p I and D done on 06/30/2020 COVID 19 infetion Type 1 diabetes mellitus poorly controlled Diarrhea- due to COVID -19 FOLLOW-up: Patient is advised to continue the antibiotic course and completed as prescribed. She is advised to follow up with her primary care physician and ID/wound care center. More than 35 minutes spent towards the discharge of the patient. Patient Condition at Discharge: Fair Plan - Discharge Summary Discharge Rx Participant: Yes New Discharge Prescriptions: New Amoxic-Pot Clav 875-125Mg [Augmentin 875-125] 1 tab PO Q12HR 10 Days #20 tab Sulfamethox-Tmp 800-160Mg [Bactrim DS 800-160 mg] 1 tab PO Q12HR #20 tab Continue Insulin Glargine,Hum.rec.anlog [Lantus Solostar] 30 unit SQ HS Kurvelo 0.15mg-30mcg 1 tab PO HS Insulin Lispro [humaLOG Kwikpen] See Protocol SQ AC-TID Discharge Medication List Insulin Glargine,Hum.rec.anlog [Lantus Solostar] 30 unit SQ HS 06/27/20 [History] Insulin Lispro [humaLOG Kwikpen] See Protocol SQ AC-TID 06/27/20 [History] Kurvelo 0.15mg-30mcg 1 tab PO HS 06/27/20 [History] Amoxic-Pot Clav 875-125Mg [Augmentin 875-125] 1 tab PO Q12HR 10 Days #20 tab 06/30/20 [Rx] Sulfamethox-Tmp 800-160Mg [Bactrim DS 800-160 mg] 1 tab PO Q12HR #20 tab 06/30/20 [Rx] Patient Instructions/Handouts: Viral Pneumonia (DC), Abscess Incision and Drainage (DC) Activity/Diet/Wound Care/Special Instructions: Left heel wound dressing instructions: 1. Cut 1xsmall 2inch piece of Aquacel Silver rope 2. Use forceps to pack Aquacel Silver rope into wound opening as much as able 3. Fold remaining Silver rope on top of the wound bed. 4. Moisten with half syringe of saline 5. Apply 4x4 Gauze pads over the wound area 6. Wrap Kerlix bandage to secure gauze and wound area securely 7. Secure bandage with tape 8. Keep left foot elevated 9. Do not walk on heel - use toe-touch when ambulating 10. Keep dressing dry - to be changed daily aquacel silver packing of wound daily, follow up with dr merritt in wound care call [phone] to make appointment on . Discharge Disposition: HOME SELF-CARE
--- NOTE | 2020-06-30 16:25 | PN ---
PROGRESS NOTE DATE OF SERVICE: 06/30/2020. REASON FOR FOLLOWUP: Left diabetic foot infection. INTERVAL HISTORY: The patient is currently afebrile. Patient is feeling better, she is breathing comfortably. Culture has been obtained; however, the patient is determined on going home. PHYSICAL EXAMINATION: Her blood pressure is 130/70 with a pulse of 89, temperature is 98.7, she is 97% on room air. General description is a middle-aged female lying in bed in no distress. RESPIRATORY SYSTEM: Unlabored breathing, clear to auscultation anteriorly. HEART: S1, S2, regular rate and rhythm. ABDOMEN: Soft, no tenderness. Left heel . LABS: Hemoglobin is 13.4, white count of , BUN of , creatinine . DIAGNOSTIC IMPRESSION AND PLAN: MMODL / IJN: [id number] /
--- NOTE | 2020-06-30 16:51 | P.PN ---
Subjective Progress Note Date: 06/30/20 Principal diagnosis: Code 19 related infection This is a very pleasant 19-year-old female patient who was originally admitted to the pediatric unit for complaints of pain in the left heel. Almost 2 weeks ago she had jumped off a forefoot trailer and landed on her left heel on top of an acorn. She had had ongoing issues with discomfort. She does have a history of diabetes mellitus, type I, migraines and possible psoriasis. Prior to admission she had also developed a fever on 06/22/2020 with nasal congestion and drainage. She was found to be CoVID 19-positive on 06/27/2020 and transferred from the pediatric unit to the regular medical floor. She is seen today in consultation. She is currently awake and alert in no acute distress. Resting quite comfortably in bed. Maintaining O2 saturations in the low 90s on room air. She's been afebrile. She denies any worsening shortness of breath cough or congestion. Chest x-ray did reveal some patchy infiltrate/atelectasis of the lower lung webb. There is poor inspiration noted. White count 3.9. Hemoglobin 13.5. Lymphocytes 0.8. Sodium 140. Potassium 4.1. D-dimer 0.23. Pro calcitonin 0.06. She had been initiated on Unasyn and azithromycin along with Lovenox and dexamethasone. Infectious disease is on the case. On 06/30/2020 patient seen in follow-up on general medical surgical floor, she is awake and alert, she is resting comfortably in bed, she's had no fever or chills, she is on room air, denies any worsening dyspnea, pulse ox is 91-93%, she's been afebrile for last couple of days, blood pressure is been stable, breathing is nonlabored. No significant cough, no chest pain or palpitations, remains on oral Decadron, Unasyn and azithromycin, ID service is following. Blood culture has shown no growth. Vascular surgery is also following and patient is status post I&D of the left heel wound Objective - Vital Signs Vital signs: Vital Signs Temp 98.2 F 06/30/20 15:00 Pulse 112 H 06/30/20 15:00 Resp 18 06/30/20 15:00 BP 143/91 06/30/20 15:00 Pulse Ox 91 L 06/30/20 15:00 Intake & Output 06/29/20 06/30/20 06/30/20 18:59 06:59 18:59 Intake Total 100 300 150 Balance 100 300 150 Intake: Intake, IV Titration 100 300 150 Amount Ampicillin-Sulbactam 3 gm 100 In Sodium Chloride 0.9% 100 ml @ 200 mls/hr IVPB Q6HR [facility] Rx#:[id number] Sodium Chloride 0.9% 1, 300 150 000 ml @ 100 mls/hr IV . Q10H [facility] Rx#:[id number] Other: Voiding Method Toilet Toilet Toilet # Voids 2 - Exam GENERAL EXAM: Alert, very pleasant, 19-year-old white female, on room air, with a pulse ox between 91-92%, comfortable in no apparent distress. HEAD: Normocephalic/atraumatic. EYES: Normal reaction of pupils, equal size. Conjunctiva pink, sclera white. NOSE: Clear with pink turbinates. THROAT: No erythema or exudates. NECK: No masses, no JVD, no thyroid enlargement, no adenopathy. CHEST: No chest wall deformity. Symmetrical expansion. LUNGS: Equal air entry with no crackles, wheeze, rhonchi or dullness. CVS: Regular rate and rhythm, normal S1 and S2, no gallops, no murmurs, no rubs ABDOMEN: Soft, nontender. No hepatosplenomegaly, normal bowel sounds, no guarding or rigidity. EXTREMITIES: No clubbing, no edema, no cyanosis, 2+ pulses and upper and lower extremities. MUSCULOSKELETAL: Muscle strength and tone normal. SPINE: No scoliosis or deformity SKIN: No rashes, left he was covered with a surgical dressing, clean dry and intact CENTRAL NERVOUS SYSTEM: Alert and oriented -3. No focal deficits, tone is normal in all 4 extremities. PSYCHIATRIC: Alert and oriented -3. Appropriate affect. Intact judgment and insight. - Labs CBC & Chem 7: 06/30/20 05:45 06/30/20 05:45 Labs: Abnormal Lab Results - Last 24 Hours (Table) 06/29/20 06/30/20 Range/Units 21:09 05:45 Glucose 122 H (70-110) mg/dL POC Glucose (mg/dL) 271 H (75-99) mg/dL Microbiology - Last 24 Hours (Table) 06/27/20 18:13 Blood Culture - Preliminary Blood No Growth after 48 hours Assessment and Plan Plan: Assessment: 1 Left heel pain secondary to jumping off a trailer landing and an acorn in a patient with diabetes mellitus type 1 2 Acute febrile illness secondary to acute CoVID 19 pneumonitis 3 Acute hypoxic respiratory failure secondary to above 4 Diabetes mellitus, type I 5 History of migraines 6 Possible psoriasis Plan: Patient denies any shortness of breath, she's been afebrile for last 48 hours, she continues on antibiotics for her left heel infected wound status post I&D by vascular surgery. No cough, no chest pain, she can be considered for discharge home from pulmonary perspective. She may return for follow-up in 5-[address] Norman in the office I performed a history & physical examination of the patient and discussed their management with my nurse practitioner, Janeen Cobos. I reviewed the nurse practitioner's note and agree with the documented findings and plan of care. Lung sounds are positive for clear breath sounds. The findings and the impression was discussed with the patient. I attest to the documentation by the nurse practitioner. Time with Patient: Less than 30
--- NOTE | 2020-07-02 09:14 | CDI ---
Documentation Clarification Form Date: 07/02/20 From: Lindsay Fall CCS Phone: If you have a question about this query, please contact Anabella Lugo, Mail Handlers Supervisor at [phone] between 8am and 5pm. Admit Date: 06/27/20 Discharge Date:06/30/20 Patient Name: Marlin Khan Visit Number: [id number] ATTENTION: The Clinical Documentation Specialists (CDI) and [facility] Coding Staff appreciate your assistance in clarifying documentation. Please respond to the clarification below the line at the bottom and electronically sign. The CDI & [facility] Coding staff will review the response and follow-up if needed. Please note: Queries are made part of the Legal Health Record. If you have any questions, please contact the author of this message via ITS. Dear Dr. Braun, Conflicting documentation has been found in the medical record: Consult 06/29, PN 06/30 document: Acute hypoxic respiratory failure secondary to above Consult 06/29 documents: Maintaining good O2 saturations in the 90s on room air. Vitals: BP 142/90, RR 16 W[place] 91, Temp 98.3, O2 Sat 92 PN 06/29 documents: Patient with COVID-19 infection in this patient is currently not hypoxic, is on Lovenox and Decadron and Zithromax and seems to have shown improvement Consult 06/28 documents: Patient with low-grade fever shortness of breath and cough now with evidence of positive covid 19 test concerning for covid 19 pneumonia. We will add Lovenox Decadron and Zithromax for underlying covid 19 infection, patient currently with no evidence of any hypoxemia and would not qualify for Remdisivir H&P documents: Respiratory: Reports shortness of breath, Reports cough, Denies sputum production History/Risk Factors: COVID PNA, Diabetic foot infection, RACHAEL, Tachycardia Clinical Indicators: Shortness of breath ABG: none Oxygen: none Treatment: Zithromax 500 mg PO daily, Hexadrol 6 mg PO Daily Consult: Sheryl In your opinion, what is the most clinically appropriate diagnosis for this patient? Acute Respiratory Failure with Hypoxia Shortness of breath Hypoxemia Other explanation of clinical findings Unable to determine (no explanation for clinical findings) Shortness of breath MTDD
== END 2020-06-30 16:41 | disposition home or self-care (01) | DRG 177 ==
LOC: 6PED 17:08 → 4SSUR 23:24
PROVIDERS: ADMIT Hospitalist; ATTEND Hospitalist
PROC: 0J9R3ZZ Drainage of Left Foot Subcutaneous Tissue and Fascia, Percutaneous Approach (ICD-10-PCS; principal; 2020-06-30)
DX: U07.1 COVID-19 (principal); J12.89 Other viral pneumonia; L02.612 Cutaneous abscess of left foot; L03.116 Cellulitis of left lower limb; E10.628 Type 1 diabetes mellitus with other skin complications; E10.65 Type 1 diabetes mellitus with hyperglycemia; Z79.4 Long term (current) use of insulin; G43.909 Migraine, unspecified, not intractable, without status migrainosus; E86.0 Dehydration; L84 Corns and callosities; R63.0 Anorexia; R79.82 Elevated C-reactive protein (CRP); R00.0 Tachycardia, unspecified; D72.810 Lymphocytopenia; Z68.24 Body mass index [BMI] 24.0-24.9, adult; Z71.3 Dietary counseling and surveillance; Z79.899 Other long term (current) drug therapy; Z87.440 Personal history of urinary (tract) infections; Z82.49 Family history of ischemic heart disease and other diseases of the circulatory system; Z83.3 Family history of diabetes mellitus; Z80.9 Family history of malignant neoplasm, unspecified; Z83.49 Family history of other endocrine, nutritional and metabolic diseases
CPT/HCPCS: 71045; 80048; 80053; 83615; 84145; 85025; 85379; 86140; 87040; 87070; 87077; 87186; 87205; 87635

== ENCOUNTER 2021-04-10 13:41 | Emergency (ER) | payer OTHER ==
[2021-04-10 14:44] VITALS: RESP 16
[2021-04-10] MEDS ORDERED: predniSONE 50 MG TAB PO STA (16:02)
[2021-04-10] MEDS ORDERED: hydrOXYzine HCL 25 MG TAB PO STA (16:02)
--- NOTE | 2021-04-10 16:05 | ED ---
Skin/Abscess/FB HPI - General Chief complaint: Skin/Abscess/Foreign Body Stated complaint: Allergic Reaction Time Seen by Provider: 04/10/21 15:23 Source: patient Mode of arrival: ambulatory Limitations: no limitations - History of Present Illness Initial comments: 20 year-old female patient presents to the emergency department for evaluation of generalized rash. States it started about a year ago, worsened in June 2020 after having COVID. States she did see a location man in January and was diagnosed with an allergic reaction. She was given topical steroid cream and oral antihistamine without relief of symptoms. She reports intense itching and burning to the lesions. States that since her visit to the location man symptoms have worsened and are now over her face and scalp. States that the lesions are more red. Does have history of Type I diabetes. Denies any new medications. Denies any known exacerbating exposures. - Related Data Home Medications Medication Instructions Recorded Confirmed Insulin Glargine,Hum.rec.anlog 30 unit SQ HS 06/27/20 06/27/20 [Lantus Solostar Pen] Insulin Lispro [humaLOG Kwikpen] See Protocol SQ AC-TID 06/27/20 06/27/20 Kurvelo 0.15mg-30mcg 1 tab PO HS 06/27/20 06/27/20 Previous Rx's Medication Instructions Recorded Amoxic-Pot Clav 875-125Mg 1 tab PO Q12HR 10 Days #20 tab 06/30/20 [Augmentin 875-125] Sulfamethox-Tmp 800-160Mg [Bactrim 1 tab PO Q12HR #20 tab 06/30/20 DS 800-160 mg] Betamethasone Dipropionate 1 applic TOPICAL BID #15 gm 04/10/21 [Betamethasone Dipropionate 0.05%] hydrOXYzine HCL [Atarax] 25 mg PO TID PRN #30 tab 04/10/21 predniSONE 50 mg PO DAILY #5 tablet 04/10/21 Allergies Allergy/AdvReac Type Severity Reaction Status Date / Time No Known Allergies Allergy Verified 04/10/21 14:44 Review of Systems ROS Statement: Those systems with pertinent positive or pertinent negative responses have been documented in the HPI. ROS Other: All systems not noted in ROS Statement are negative. Past Medical History Past Medical History: Diabetes Mellitus Additional Past Medical History / Comment(s): UTIs, Type 1 DM History of Any Multi-Drug Resistant Organisms: None Reported Past Surgical History: No Surgical Hx Reported Past Anesthesia/Blood Transfusion Reactions: No Reported Reaction Past Psychological History: No Psychological Hx Reported Smoking Status: Never smoker Past Alcohol Use History: None Reported Past Drug Use History: None Reported - Past Family History Mother Family Medical History: Cancer, Diabetes Mellitus, Hypertension, Thyroid Disorder Father Family Medical History: Coronary Artery Disease (CAD) General Exam Limitations: no limitations General appearance: alert, in no apparent distress, other (This is a well- developed, well-nourished adult female patient in no acute distress. Vital signs upon presentation are temperature 98.2F, pulse 85, respirations 16, blood pressure 106/85, pulse ox 99% on room air.) ENT exam: Present: normal exam, normal oropharynx, mucous membranes moist Respiratory exam: Present: normal lung sounds bilaterally. Absent: respiratory distress, wheezes, rales, rhonchi, stridor Cardiovascular Exam: Present: regular rate, normal rhythm, normal heart sounds. Absent: systolic murmur, diastolic murmur, rubs, gallop, clicks GI/Abdominal exam: Present: soft, normal bowel sounds. Absent: distended, tenderness, guarding, rebound, rigid Neurological exam: Present: alert, oriented X3, CN II-XII intact Psychiatric exam: Present: normal affect, normal mood Skin exam: Present: warm, dry, intact, normal color, rash (Generalized patchy, scaly, erythematous rash. Lesions are flat. No drainage. No vesicles. No pupuric lesions.) Course Vital Signs 04/10/21 04/10/21 14:39 16:30 Temperature 98.2 F 98.6 F Pulse Rate 85 81 Respiratory 16 16 Rate Blood Pressure 106/85 116/70 O2 Sat by Pulse 99 98 Oximetry Medical Decision Making - Medical Decision Making 20-year-old female patient presents to the emergency department for evaluation of rash. Rash is been present for the last month. Unfortunately she is unable to find a location man willing to accept her insurance and has no money to pay for the appointments. Physical examination did reveal patchy, erythematous, scaly, flat rash over the entirety of her body. No palm or sole lesions. She is afebrile normal vital signs. Symptoms and rash seems consistent with psoriasis. She'll be discharged home with prescription for oral steroids and betamethasone cream. She is instructed to obtain psoriasis lotion [id number] and mix with this steroid solution to apply to the lesions. She is also instructed to expose her skin to the son but to avoid sunburn. She is instructed to follow-up with a location man and primary care physician for recheck as soon as possible. Return parameters were discussed in detail. She verbalizes understanding and agrees with this plan. My attending Dr. Peralta was in to evaluate the patient as well. Disposition Clinical Impression: Skin rash Disposition: HOME SELF-CARE Condition: Good Instructions (If sedation given, give patient instructions): Psoriasis (ED) Additional Instructions: Take medications as directed. Follow up with primary care physician and location man as soon as possible. Return for any new, worsening, or concerning symptoms. Prescriptions: hydrOXYzine HCL [Atarax] 25 mg PO TID PRN #30 tab PRN Reason: Itching Betamethasone Dipropionate [Betamethasone Dipropionate 0.05%] 1 applic TOPICAL BID #15 gm predniSONE 50 mg PO DAILY #5 tablet Is patient prescribed a controlled substance at d/c from ED?: No Referrals: Carolyn Couch MD [STAFF PHYSICIAN] - 1-2 days Patrick Navarro MD [STAFF PHYSICIAN] - 1-2 days Reese Mtz MD [REFERRING] - 1-2 days Rodolfo Cotto DO [STAFF PHYSICIAN] - 1-2 days Time of Disposition: 16:05
[2021-04-10 16:31] VITALS: BP 116/70; PULSE 81; TEMP 98.6
== END 2021-04-10 16:30 | disposition home or self-care (01) ==
LOC: EC 13:41
DX: R21 Rash and other nonspecific skin eruption (principal); E10.9 Type 1 diabetes mellitus without complications; Z79.52 Long term (current) use of systemic steroids; Z82.49 Family history of ischemic heart disease and other diseases of the circulatory system; Z83.3 Family history of diabetes mellitus; Z83.49 Family history of other endocrine, nutritional and metabolic diseases
CPT/HCPCS: 99282; J7512

== ENCOUNTER → 2021-06-10 | Outpatient (CLI) | payer OTHER ==
[2021-06-10 15:30] LABS: Basophils # (A) 0.04 X 10*3/uL (0.00-0.10); Basophils % (A) 0.7 %; Eosinophils # (A) 0.09 X 10*3/uL (0.04-0.35); Eosinophils % (A) 1.5 %; HCT 44.1 % (37.2-46.3); HGB 13.9 g/dL (12.0-15.0); Lymphocytes % (A) 33.3 %; MCH 30.2 pg (27.0-32.0); MCHC 31.5 g/dL (32.0-37.0); MCV 95.7 fL (80.0-97.0); Mean Platelet Volume 10.4 fL (9.5-12.2); Monocytes # (A) 0.49 X 10*3/uL (0.20-1.00); Monocytes % (A) 8.2 %; Neutrophils # (A) 3.32 X 10*3/uL (1.80-7.70); Neutrophils % (A) 55.3 %; Platelet Count 436 X 10*3/uL (140-440); RBC 4.61 X 10*6/uL (4.10-5.20); RDW 12.7 % (11.5-14.5)
[2021-06-10 22:26] LABS: Hepatitis A Antibody IgM Nonreactive (Nonreactive); Hepatitis B Core IgM Nonreactive (Nonreactive); Hepatitis B Surface Antigen Nonreactive (Nonreactive); Hepatitis C IgG Antibody Nonreactive (Nonreactive)
[2021-06-10 22:28] LABS: African American GFR (CKD) 144.2 (60.0-200.0); Albumin 4.1 g/dL (3.8-4.9); Albumin/Globulin Ratio 1.53 (1.60-3.17); Anion Gap 16.1 mmol/L (4.00-12.00); BUN/Creat Ratio 13.39 Ratio (12.00-20.00); Blood Urea Nitrogen 9.1 mg/dL (9.0-27.0); Calcium 9.6 mg/dL (8.7-10.3); Carbon Dioxide 23.3 mmol/L (21.6-31.8); Globulin 2.7 g/dL (1.6-3.3); Non-African American GFR(CKD) 124.4 (60.0-200.0); Potassium 4.1 mmol/L (3.5-5.5); Total Bilirubin 0.4 mg/dL (0.30-1.20); Total Protein 6.8 g/dL (6.2-8.2)
== END | disposition home or self-care (01) ==
LOC: LABWHC1 09:59
PROVIDERS: ATTEND Nurse Practitioner
DX: L40.0 Psoriasis vulgaris (principal); Z79.899 Other long term (current) drug therapy
CPT/HCPCS: 36415; 80053; 80074; 85025; 86480

== ENCOUNTER → 2021-12-23 | Outpatient (CLI) | payer OTHER ==
--- NOTE | 2021-12-23 16:49 | XR ---
EXAMINATION TYPE: XR wrist complete LT DATE OF EXAM: 12/23/2021 CLINICAL HISTORY: pain TECHNIQUE: Frontal, lateral and oblique images of the left wrist are obtained. COMPARISON: None. FINDINGS: There is no acute fracture/dislocation evident. The joint spaces appear within normal [place] its. The overlying soft tissue appears unremarkable. IMPRESSION: There is no acute fracture or dislocation seen. ICD 10 NO FRACTURE, INITIAL EVALUATION
== END | disposition home or self-care (01) ==
LOC: RADXRMAIN 16:28
PROVIDERS: ATTEND Emergency Medicine
DX: M25.532 Pain in left wrist (principal)

== ENCOUNTER 2021-12-29 11:19 | Emergency (ER) | payer OTHER ==
[2021-12-29 11:52] VITALS: BP 149/93; PULSE 118; TEMP 98.2
--- NOTE | 2021-12-29 12:32 | XR ---
EXAMINATION TYPE: XR wrist complete LT DATE OF EXAM: 12/29/2021 COMPARISON: 12/23/2021 HISTORY: 21-year-old female pain, work injury TECHNIQUE: 4 views FINDINGS: Mild soft tissue swelling at the wrist. The radiocarpal and distal radial ulnar joint as well as the midcarpal compartment appear intact. No acute fracture, subluxation, or dislocation seen. IMPRESSION: Mild soft tissue swelling at the wrist. No acute osseous abnormality seen.
[2021-12-29] MEDS ORDERED: ACET/COD 300 MG/30 MG STARTER PACK 6 TAB BTL PO STA (12:55)
--- NOTE | 2021-12-29 12:57 | ED ---
Upper Extremity HPI - General Chief Complaint: Extremity Injury, Upper Stated Complaint: L Wrist injury [facility] Time Seen by Provider: 12/29/21 12:40 Source: patient, RN notes reviewed Mode of arrival: ambulatory Limitations: no limitations - History of Present Illness Initial Comments: 21-year-old female presents with from chief complaint of left wrist pain. Patient states that she injured it while back she follow-up with [facility] had x-rays which are negative. Patient states that she has more swelling worsening pain she was given a brace but states does not seem to be helping. She states she has increasing pain and has not had any physical therapy or seen by orthopedics. No paresthesias. Patient states that she's also having symptoms of for her psoriasis with this point. - Related Data Home Medications Medication Instructions Recorded Confirmed Insulin Glargine,Hum.rec.anlog 30 unit SQ HS 06/27/20 06/27/20 [Lantus Solostar Pen] Insulin Lispro [humaLOG Kwikpen] See Protocol SQ AC-TID 06/27/20 06/27/20 Kurvelo 0.15mg-30mcg 1 tab PO HS 06/27/20 06/27/20 Previous Rx's Medication Instructions Recorded Amoxic-Pot Clav 875-125Mg 1 tab PO Q12HR 10 Days #20 tab 06/30/20 [Augmentin 875-125] Sulfamethox-Tmp 800-160Mg [Bactrim 1 tab PO Q12HR #20 tab 06/30/20 DS 800-160 mg] Betamethasone Dipropionate 1 applic TOPICAL BID #15 gm 04/10/21 [Betamethasone Dipropionate 0.05%] hydrOXYzine HCL [Atarax] 25 mg PO TID PRN #30 tab 04/10/21 predniSONE 50 mg PO DAILY #5 tablet 04/10/21 Ibuprofen [Motrin] 600 mg PO Q8HR PRN #20 tab 12/29/21 predniSONE 10 mg PO DIRECTED #30 tab 12/29/21 Allergies Allergy/AdvReac Type Severity Reaction Status Date / Time No Known Allergies Allergy Verified 12/29/21 11:52 Review of Systems ROS Statement: Those systems with pertinent positive or pertinent negative responses have been documented in the HPI. ROS Other: All systems not noted in ROS Statement are negative. Past Medical History Past Medical History: Diabetes Mellitus Additional Past Medical History / Comment(s): UTIs, Type 1 DM History of Any Multi-Drug Resistant Organisms: None Reported Past Surgical History: No Surgical Hx Reported Past Anesthesia/Blood Transfusion Reactions: No Reported Reaction Past Psychological History: No Psychological Hx Reported Smoking Status: Never smoker Past Alcohol Use History: None Reported Past Drug Use History: None Reported - Past Family History Mother Family Medical History: Cancer, Diabetes Mellitus, Hypertension, Thyroid Disorder Father Family Medical History: Coronary Artery Disease (CAD) General Exam Limitations: no limitations General appearance: alert, in no apparent distress Neck exam: Present: normal inspection, full ROM. Absent: tenderness, meningis mus, lymphadenopathy Respiratory exam: Present: normal lung sounds bilaterally. Absent: respiratory distress, wheezes, rales, rhonchi, stridor Cardiovascular Exam: Present: regular rate, normal rhythm, normal heart sounds. 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 Absent: motor sensory deficit Course Vital Signs 12/29/21 11:45 Temperature 98.2 F Pulse Rate 118 H Respiratory 18 Rate Blood Pressure 149/93 O2 Sat by Pulse 98 Oximetry Medical Decision Making - Medical Decision Making X-rays negative. Patient has left wrist sprain. Patient continue using her brace she will strain Parameters and follow-up with orthopedics. Patient is given steroids for her psoriasis. Disposition Clinical Impression: Left wrist sprain, Left wrist tendonitis Disposition: HOME SELF-CARE Condition: Stable Instructions (If sedation given, give patient instructions): Wrist Injury (ED) Additional Instructions: Please return to the Emergency Department if symptoms worsen or any other concerns. Prescriptions: Ibuprofen [Motrin] 600 mg PO Q8HR PRN #20 tab PRN Reason: Pain predniSONE 10 mg PO DIRECTED #30 tab Is patient prescribed a controlled substance at d/c from ED?: No Referrals: None,Stated [Primary Care Provider] - 1-2 days Adeel Bill DO [Doctor of Osteopathic Medicine] - 1-2 days Time of Disposition: 12:56
[2021-12-29 13:03] VITALS: RESP 18
== END 2021-12-29 13:09 | disposition home or self-care (01) ==
LOC: EC 11:19
DX: S63.502A Unspecified sprain of left wrist, initial encounter (principal); E10.9 Type 1 diabetes mellitus without complications; M77.8 Other enthesopathies, not elsewhere classified; X50.1XXA Overexertion from prolonged static or awkward postures, initial encounter; Y93.89 Activity, other specified; Y99.0 Civilian activity done for income or pay
CPT/HCPCS: 99283

== ENCOUNTER → 2022-02-18 | Outpatient (CLI) | payer OTHER ==
--- NOTE | 2022-02-18 13:48 | XR ---
EXAMINATION TYPE: XR wrist complete LT DATE OF EXAM: 02/18/2022 CLINICAL HISTORY: pain TECHNIQUE: Frontal, lateral and oblique images of the left wrist are obtained. COMPARISON: None. FINDINGS: There is no acute fracture/dislocation evident. The joint spaces appear within normal [place] its. The overlying soft tissue appears unremarkable. IMPRESSION: There is no acute fracture or dislocation seen. ICD 10 NO FRACTURE, INITIAL EVALUATION
== END | disposition home or self-care (01) ==
LOC: RADXRMAIN 13:28
PROVIDERS: ATTEND Emergency Medicine
DX: M25.532 Pain in left wrist (principal)

== ENCOUNTER → 2022-05-10 | Outpatient (CLI) | payer OTHER ==
[2022-05-10 18:05] LABS: Basophils # (A) 0.05 X 10*3/uL (0.00-0.10); Basophils % (A) 0.6 %; Eosinophils # (A) 0.15 X 10*3/uL (0.04-0.35); Eosinophils % (A) 1.9 %; HCT 40.8 % (37.2-46.3); HGB 13.2 g/dL (12.0-15.0); Immature Grans, Automated 0.5 %; Lymphocytes # (A) 2.66 X 10*3/uL (0.90-5.00); Lymphocytes % (A) 33.4 %; MCH 30.8 pg (27.0-32.0); MCHC 32.4 g/dL (32.0-37.0); MCV 95.3 fL (80.0-97.0); Mean Platelet Volume 9.9 fL (9.5-12.2); Monocytes # (A) 0.59 X 10*3/uL (0.20-1.00); Monocytes % (A) 7.4 %; NRBC Per 100 WBC 0 /100 WBCS (0.0-0.0); Neutrophils # (A) 4.47 X 10*3/uL (1.80-7.70); Neutrophils % (A) 56.2 %; Platelet Count 439 X 10*3/uL (140-440); RBC 4.28 X 10*6/uL (4.10-5.20); RDW 12.9 % (11.5-14.5); WBC 7.96 X 10*3/uL (4.50-10.00)
[2022-05-10 18:15] LABS: African American GFR (CKD) 152.2 (60.0-200.0); Non-African American GFR(CKD) 131.4 (60.0-200.0)
[2022-05-10 18:25] LABS: Hepatitis B Surface Antigen Nonreactive (Nonreactive)
[2022-05-10 18:28] LABS: Hepatitis B Surface AB- Quant 3.5 mIU/mL; Hepatitis B Surface Antibody Nonreactive (Nonreactive)
== END | disposition home or self-care (01) ==
LOC: LABWHC1 12:59
PROVIDERS: ATTEND Dermatology Procedural Dermatology
DX: L40.0 Psoriasis vulgaris (principal)
CPT/HCPCS: 36415; 82565; 84450; 84460; 85025; 86480; 86706; 87340

== ENCOUNTER 2022-07-28 11:19 | Day surgery (SDC) | payer OTHER ==
--- NOTE | 2022-07-26 13:25 | P.HPOR ---
History of Present Illness H&P Date: 07/26/22 Chief Complaint: Left DeQuervains tenosynovitis Subjective: This is a 21 year old female that presents today for follow up evaluation regarding left radial sided wrist pain that began on 12/18/21 that occurred after she was carrying a heavy tray at work when the tray fell out of her hands and stretched her wrist. She had pain and swelling since then and has had several negative X-rays of the wrist. 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 Over the past 5 months she has tried thumb spica bracing, a steroid injection on 03/01/2022, which provided temporary relief. She states her symptoms have returned and are worsening. She describes the pain as burning and worsens with any type of ulnar deviation of the wrist and is having difficulty even carrying collins chain. She is also complaining of some subjective burning/tingling on the dorsal radial portion of the wrist. Physical Examination: LUE: AIN/PIN/Radial/Ulnar/Median motor intact. Radial/Ulnar/Median SILT. 2+/4 Radial/Ulnar pulses palpated. 5/5 APB, 5/5 FDI. Positive Finkelsteins, negative CMC grind, negative Durkan's compression. Subjective paresthesias in the superficial sensory radial branch distribution. Impression: 1.) Left DeQuervain's tenosynovitis Plan: Diagnosis and treatment options were discussed with the patient. She is failed conservative treatment for her left DeQuervains tenosynovitis. We discussed the possibility of another steroid injection, however, she states that the last injection only lasted 2 weeks and irritated her psoriasis. She states the pain is still affecting her ability to work, even with light tasks. She would like to proceed with surgical intervention in the form of a left first dorsal compartment release. Risks and benefits of surgery including bleeding, infection, damage to surrounding tissue, need for further surgery, residual numbness were discussed and the patient wished to go forward with surgery. I anticipate 2-3 weeks off work postoperatively, she may continue her 3 pound weight restriction at work until the day of surgery. Follow up: 10 days post op -Adeel Bill DO Orthopedic Hand/Upper Extremity Surgeon Past Medical History Past Medical History: Diabetes Mellitus Additional Past Medical History / Comment(s): UTIs, Type 1 DM History of Any Multi-Drug Resistant Organisms: None Reported Past Surgical History: No Surgical Hx Reported Past Anesthesia/Blood Transfusion Reactions: No Reported Reaction Past Psychological History: No Psychological Hx Reported Smoking Status: Never smoker Past Alcohol Use History: None Reported Past Drug Use History: None Reported - Past Family History Mother Family Medical History: Cancer, Diabetes Mellitus, Hypertension, Thyroid Disorder Father Family Medical History: Coronary Artery Disease (CAD) Medications and Allergies Home Medications Medication Instructions Recorded Confirmed Type Insulin Glargine,Hum.rec.anlog 30 unit SQ HS 06/27/20 06/27/20 History [Lantus Solostar Pen] Insulin Lispro [humaLOG Kwikpen] See Protocol SQ AC-TID 06/27/20 06/27/20 History Kurvelo 0.15mg-30mcg 1 tab PO HS 06/27/20 06/27/20 History Amoxic-Pot Clav 875-125Mg 1 tab PO Q12HR 10 Days #20 tab 06/30/20 Rx [Augmentin 875-125] Sulfamethox-Tmp 800-160Mg [Bactrim 1 tab PO Q12HR #20 tab 06/30/20 Rx DS 800-160 mg] Betamethasone Dipropionate 1 applic TOPICAL BID #15 gm 04/10/21 Rx [Betamethasone Dipropionate 0.05%] hydrOXYzine HCL [Atarax] 25 mg PO TID PRN #30 tab 04/10/21 Rx predniSONE 50 mg PO DAILY #5 tablet 04/10/21 Rx Ibuprofen [Motrin] 600 mg PO Q8HR PRN #20 tab 12/29/21 Rx predniSONE 10 mg PO DIRECTED #30 tab 12/29/21 Rx Allergies Allergy/AdvReac Type Severity Reaction Status Date / Time No Known Allergies Allergy Verified 12/29/21 11:52 Physical Examination Osteopathic Statement: *. No significant issues noted on an osteopathic structural exam other than those noted in the History and Physical/Consult.
[2022-07-27 08:38] VITALS: BMI 23.9
[~2022-07-28 11:19] MED LIST: DEXAMETHASONE SOD PHOSPHATE 4 MG/ML 1 ML VIAL IV ONE; HYDROmorphone 0.5 MG/0.5 ML SYRINGE IVP PRN; LACTATED RINGERS 1,000 ML IV SCH; MIDAZOLAM 2 MG/2 ML VIAL IV PRN; ONDANSETRON 4 MG/2 ML VIAL IVP ONE; Pre Op ABX Message 1 EACH MISC MISCELLANE ONE; SCOPOLAMINE 1 MG/72 HR PATCH TRANSDERM ONE
[2022-07-28 11:52] VITALS: RESP 18; TEMP 97
[2022-07-28] MEDS ORDERED: LIDOCAINE 1% (10MG/ML) FOR IV START INTRADERMA ONE (12:02)
[2022-07-28 12:09] LABS: Glucose,Whole Blood 254 mg/dL (70-110)
[2022-07-28] MEDS ORDERED: LIDOCAINE 2% INJ 20 MG/ML (2 ML VIAL) ONE (12:16)
[2022-07-28] MEDS ORDERED: fentaNYL (PF) 50 MCG/ML 2 ML AMP ONE (12:16)
[2022-07-28] MEDS ORDERED: PROPOFOL 10 MG/ML 20 ML VIAL IV ONE (12:16)
[2022-07-28] MEDS ORDERED: MIDAZOLAM 2 MG/2 ML VIAL ONE (12:16)
[2022-07-28] MEDS ORDERED: INSULIN ASPART (NovoLOG) 100 UNIT/ML VIAL SQ ONE (12:18)
[2022-07-28] MEDS ORDERED: LIDOCAINE 2% (PF) 20 MG/ML 10 ML AMP SQ ONE (12:25)
[2022-07-28] MEDS ORDERED: BUPIVACAINE (PF) 0.5% 30 ML VIAL SQ ONE (12:25)
--- NOTE | 2022-07-28 12:53 | P.OP ---
Date of Procedure: 07/28/22 Preoperative Diagnosis: Left DeQuervains tenosynovitis Postoperative Diagnosis: Left DeQuervains tenosynovitis Procedure(s) Performed: Left wrist first dorsal compartment release Anesthesia: MAC Surgeon: Adeel Bill Maintenance Supervisor Mechanical #1: Minesh Mckeon Estimated Blood Loss (ml): 0 Pathology: none sent Condition: stable Disposition: PACU Description of Procedure: This is a 21 year old female who presents today for a left first dorsal compartment release after having failed conservative treatment. Risks and benefits of surgery were discussed with the patient including bleeding, damage to surrounding tissue, infection, need for further surgery as well as risks of anesthesia including pulmonary embolism and even and the patient wished to proceed with surgical intervention. The patients was seen in the pre-operative area by myself. Consent and H&P were completed and updated. The correct extremity was marked in the pre-operative area by myself and all other questions were answered. Operative Narrative: The patient was brought to the operating room by the department of anesthesia. They remained on the portable stretcher and a rolling hand table was brought to the side of the operative extremity. The patient was then drifted off to sleep by the department of anesthesia. A nonsterile tourniquet was then applied to the operative extremity and the left upper extremity was then prepped and draped in normal sterile fashion. Pre-operative time out was performed indicating the correct patient, procedure and laterality. All in the room agreed. MAC anesthesia was utilized and a 50:50 mixture of 1% Lidocaine and 0.5% bupivacaine was injected into the subcutaneous tissues of the radial wrist skin, 4ccs total. Pre-operative antibiotics were given prior to skin incision. The operative extremity was the exsanguinated with an esmarch bandage and the tourniquet was inflated to 250mmHg. 15 blade scalpel was used to make a horizontal skin incision centered over the first dorsal compartment of the left wrist. Blunt dissection was taken down to the proximal edge of the first dorsal compartment while taking care to identify and protect branches of the superficial radial sensory nerve. The first dorsal compartment was released in its entirety from proximal to distal. APL and EPB tendons were identified and the APL tendon was identified to have a separate compartment that was also released in it's entirety. Skin closure was performed with 4-0 Monocryl suture, Mastisol and steri strips. Sterile soft dressing was applied consisting of 4x4's cast padding and an woodrow wrap. The patient was then woken by the department of anesthesia and transferred to PACU in stable condition. Minesh REEDER was present to assist in major portions of the case and to protect vital neurovascular structures. Adeel Bill D.O. Orthopedic Hand/Upper Extremity Surgeon
[2022-07-28 13:02] LABS: Glucose,Whole Blood 192 mg/dL (70-110)
[2022-07-28 14:30] VITALS: PULSE 107
[2022-07-28 14:35] VITALS: BP 147/90
== END 2022-07-28 14:15 | disposition home or self-care (01) ==
LOC: OR 11:19
PROVIDERS: ATTEND Orthopaedic Surgery Hand Surgery
DX: M65.4 Radial styloid tenosynovitis [de Quervain] (principal); Z79.52 Long term (current) use of systemic steroids; E10.9 Type 1 diabetes mellitus without complications; Z82.49 Family history of ischemic heart disease and other diseases of the circulatory system; Z83.49 Family history of other endocrine, nutritional and metabolic diseases; N39.0 Urinary tract infection, site not specified; Z79.2 Long term (current) use of antibiotics; Z79.899 Other long term (current) drug therapy; Z79.1 Long term (current) use of non-steroidal anti-inflammatories (NSAID)
CPT/HCPCS: 25000; 81025; J2250; J1100; J2001 ×2; J2405; J3010; J2704

== ENCOUNTER 2024-07-12 17:49 | Emergency (ER) | payer OTHER ==
--- NOTE | 2024-07-12 18:44 | XR ---
EXAMINATION TYPE: XR foot complete RT DATE OF EXAM: 07/12/2024 6:37 PM COMPARISON: None CLINICAL INDICATION: Female, 23 years old with history of right foot injury; [facility] TECHNIQUE: XR foot complete RT examined in the AP, oblique, and lateral projections. FINDINGS: No evidence of any acute osseous pathology. IMPRESSION: No evidence of acute fracture. [facility], , 07/12/2024 6:41 PM
--- NOTE | 2024-07-12 18:45 | ED ---
Lower Extremity Injury HPI - General Chief Complaint: Extremity Injury, Lower Stated Complaint: BROKEN RT FOOT Time Seen by Provider: 07/12/24 18:09 Source: patient, RN notes reviewed Mode of arrival: ambulatory Limitations: no limitations - History of Present Illness Initial Comments: 23-year-old female presenting with right foot injury 8 hours ago. States this morning she fell through a doorway, landing on her right foot. [facility] seen [facility] prior to arrival where they diagnosed her with 5th metatarsal fracture and gave her a walking boot. Instructed her to follow-up with orthopedics. Patient states she would like to get another x-ray and a second opinion. Also states she needs an orthopedic referral - Related Data Home Medications Medication Instructions Recorded Confirmed Insulin Glargine,Hum.rec.anlog 30 unit SQ HS 06/27/20 07/28/22 [Lantus Solostar Pen] Insulin Lispro [humaLOG Kwikpen] See Protocol SQ AC-TID 06/27/20 07/28/22 Kurvelo 0.15mg-30mcg 1 tab PO HS 06/27/20 07/28/22 Previous Rx's Medication Instructions Recorded Ibuprofen [Motrin] 600 mg PO Q8HR PRN #20 tab 12/29/21 Allergies Allergy/AdvReac Type Severity Reaction Status Date / Time No Known Allergies Allergy Verified 07/28/22 11:46 Review of Systems ROS Statement: Those systems with pertinent positive or pertinent negative responses have been documented in the HPI. ROS Other: All systems not noted in ROS Statement are negative. Past Medical History Past Medical History: Diabetes Mellitus, Skin Disorder Additional Past Medical History / Comment(s): Type 1 DM. PSORIASIS History of Any Multi-Drug Resistant Organisms: None Reported Past Surgical History: No Surgical Hx Reported Past Anesthesia/Blood Transfusion Reactions: No Reported Reaction Past Psychological History: No Psychological Hx Reported Smoking Status: Never smoker - Past Family History Mother Family Medical History: Cancer, Diabetes Mellitus, Hypertension, Thyroid Disorder Father Family Medical History: Cancer, Coronary Artery Disease (CAD) General Exam Limitations: no limitations General appearance: alert, in no apparent distress Right Lower Leg exam: Present: normal inspection, full ROM. Absent: tenderness, swelling Ankle exam: Present: normal inspection, full ROM. Absent: tenderness, swelling Foot/Toe exam: Present: normal inspection, full ROM, tenderness (Point tenderness over fifth metatarsal). Absent: swelling Neurovascular tendon exam: Present: no vascular compromise. Absent: pulse deficit, abnormal cap refill, sensory deficit Course Vital Signs 07/12/24 07/12/24 07/12/24 17:54 18:54 20:08 Temperature 99 F 98.3 F Pulse Rate 130 H 114 H 91 Respiratory 20 18 18 Rate Blood Pressure 190/100 166/95 142/84 O2 Sat by Pulse 98 100 100 Oximetry Medical Decision Making - Medical Decision Making Was pt. sent in by a medical professional or institution (, PA, CAD[employer] PIPING DESIGNER, urgent care, hospital, or group home...) When possible be specific @ -No Did you speak to anyone other than the patient for history (EMS, parent, family, police, friend...)? What history was obtained from this source @ -No Did you review nursing and triage notes (agree or disagree)? Why? @ -I reviewed and agree with nursing and triage notes Were old charts reviewed (outside hosp., previous admission, EMS record, old EKG, old radiological studies, urgent care reports/EKG's, group home records)? Report findings @ -No old charts were reviewed Differential Diagnosis (chest pain, altered mental status, abdominal pain women, abdominal pain men, vaginal bleeding, weakness, fever, dyspnea, syncope, headache, dizziness, GI bleed, back pain, seizure, CVA, palpatations, mental health, musculoskeletal)? @ -Differential Musculoskeletal Muscular strain, contusion, ligament sprain, fracture, arthritis, septic arthritis, bursitis, cellulitis, muscle spasm, nerve compression, DVT, arterial occlusion, herpes zoster, electrolyte abnormality, tumor.... This is not meant to be in all inclusive list EKG interpreted by me (3pts min.). @ -None X-rays interpreted by me (1pt min.). @ -X-ray right foot reveals no acute process. CT interpreted by me (1pt min.). @ -None done U/S interpreted by me (1pt. min.). @ -None done What testing was considered but not performed or refused? (CT, X-rays, U/S, labs)? Why? @ -None What meds were considered but not given or refused? Why? @ -None Did you discuss the management of the patient with other professionals (professionals i.e. , PA, CAD[employer] PIPING DESIGNER, lab, RT, psych nurse, social welfare clerk, feeder switchboard operator, teacher, consumer safety officer, rehabilitation case coordinator)? Give summary @ -No Was smoking cessation discussed for >3mins.? @ -No Was critical care preformed (if so, how long)? @ -No Were there social determinants of health that impacted care today? How? (Homelessness, low income, unemployed, alcoholism, drug addiction, transportation, low edu. Level, literacy, decrease access to med. care, longterm, rehab)? @ -No Was there de-escalation of care discussed even if they declined (Discuss DNR or withdrawal of care, Hospice)? DNR status @ -No What co-morbidities impacted this encounter? (DM, HTN, Smoking, COPD, CAD, Cancer, CVA, ARF, Chemo, Hep., AIDS, mental health diagnosis, sleep apnea, morbid obesity)? @ -None Was patient admitted / discharged? Hospital course, mention meds given and route, prescriptions, significant lab abnormalities, going to OR and other pertinent info. @ -Discharge. This is a 23-year-old female presenting with right foot injury earlier this morning. Neurovascularly intact. There is point tenderness over fifth metatarsal. X-ray right foot reveals no acute process. Discussed negativ e findings with patient. Advised to wear walking boot given by urgent care and follow-up with orthopedics in 1 week if symptoms persist. Appropriate return precautions discussed. Case was discussed with the ED attending Dr. Brannon. Undiagnosed new problem with uncertain prognosis? @ -No Drug Therapy requiring intensive monitoring for toxicity (Heparin, Nitro, Insulin, Cardizem)? @ -No Were any procedures done? @ -No Diagnosis/symptom? @ -Right foot sprain Acute, or Chronic, or Acute on Chronic? @ -Acute Uncomplicated (without systemic symptoms) or Complicated (systemic symptoms)? @ -Uncomplicated Side effects of treatment? @ -No Exacerbation, Progression, or Severe Exacerbation? @ -No Poses a threat to life or bodily function? How? (Chest pain, [place], [place], pneumonia, PE, COPD, DKA, ARF, appy, cholecystitis, CVA, Diverticulitis, Homicidal, Suicidal, threat to staff... and all critical care pts) @ -No Disposition Clinical Impression: Right foot sprain Disposition: HOME SELF-CARE Condition: Stable Instructions (If sedation given, give patient instructions): Foot Sprain (ED) Additional Instructions: Follow-up with orthopedics in 5 to 7 days. Rest, ice, and elevate right foot. Take ibuprofen/Tylenol as needed for pain. Please return to the Emergency Department if symptoms worsen or any other concerns. Is patient prescribed a controlled substance at d/c from ED?: No Referrals: None,Stated [Primary Care Provider] - 1-2 days Mio Jauregui DO [Doctor of Osteopathic Medicine] - 1-2 days Time of Disposition: 19:56
[2024-07-12 18:57] VITALS: RESP 18
[2024-07-12] MEDS: IBUPROFEN 600 MG TAB PO STA (19:37)
[2024-07-12 20:09] VITALS: BP 142/84; PULSE 91; TEMP 98.3
== END 2024-07-12 20:11 | disposition home or self-care (01) ==
LOC: EC 17:49
DX: S93.601A Unspecified sprain of right foot, initial encounter (principal); W19.XXXA Unspecified fall, initial encounter
CPT/HCPCS: 99283

== ENCOUNTER 2024-12-16 22:20 | Emergency (ER) | payer OTHER ==
--- NOTE | 2024-12-16 23:10 | ED ---
Female Urogenital HPI - General Chief complaint: Urogenital Stated complaint: UTI, back pain Time Seen by Provider: 12/16/24 22:58 Source: patient, RN notes reviewed Mode of arrival: ambulatory Limitations: no limitations - History of Present Illness Initial comments: 24-year-old female presenting for dysuria x 1 month. States she has been experiencing dysuria, urinary urgency, and low back pain intermittently over the past month. States she was diagnosed with a UTI at urgent care and has been on a total of 4 different antibiotics since diagnosis due to urine culture results and persistent symptoms despite completing multiple courses of antibiotics. States she has taken Bactrim, Keflex, Macrobid, and Augmentin. States symptoms are temporarily relieved with antibiotic and return after patient finishes antibiotic course. States she was tested for STDs and was negative. States she is not . She is a type I diabetic. Denies vaginal discharge or itching. Denies fever, nausea, vomiting. She does endorse some low back pain, denies flank pain or hematuria. No history of kidney stones. Last Menstrual Period: 11/24/24 - Related Data Home Medications Medication Instructions Recorded Confirmed Insulin Glargine,Hum.rec.anlog 30 unit SQ HS 06/27/20 07/28/22 [Lantus Solostar Pen] Insulin Lispro [humaLOG Kwikpen] See Protocol SQ AC-TID 06/27/20 07/28/22 Kurvelo 0.15mg-30mcg 1 tab PO HS 06/27/20 07/28/22 Previous Rx's Medication Instructions Recorded Ibuprofen [Motrin] 600 mg PO Q8HR PRN #20 tab 12/29/21 Ketorolac [Toradol] 10 mg PO Q8HR #15 tab 12/17/24 Allergies Allergy/AdvReac Type Severity Reaction Status Date / Time No Known Allergies Allergy Verified 12/16/24 22:28 Review of Systems ROS Statement: Those systems with pertinent positive or pertinent negative responses have been documented in the HPI. ROS Other: All systems not noted in ROS Statement are negative. Past Medical History Past Medical History: Diabetes Mellitus, Skin Disorder Additional Past Medical History / Comment(s): Type 1 DM. PSORIASIS History of Any Multi-Drug Resistant Organisms: None Reported Past Surgical History: No Surgical Hx Reported Past Anesthesia/Blood Transfusion Reactions: No Reported Reaction Past Psychological History: No Psychological Hx Reported Smoking Status: Never smoker Past Alcohol Use History: None Reported Past Drug Use History: None Reported - Past Family History Mother Family Medical History: Cancer, Diabetes Mellitus, Hypertension, Thyroid Disorder Father Family Medical History: Cancer, Coronary Artery Disease (CAD) General Exam Limitations: no limitations General appearance: alert, in no apparent distress Head exam: Present: atraumatic, normocephalic, normal inspection GI/Abdominal exam: Present: soft, normal bowel sounds. Absent: distended, tenderness, guarding, rebound, rigid Back exam: Absent: CVA tenderness (R), CVA tenderness (L) Neurological exam: Present: alert, oriented X3 Psychiatric exam: Present: normal affect, normal mood Skin exam: Present: warm, dry, intact, normal color. Absent: rash Course Vital Signs 12/16/24 22:25 Temperature 97.9 F Pulse Rate 108 H Respiratory 16 Rate Blood Pressure 153/99 O2 Sat by Pulse 97 Oximetry Medical Decision Making - Medical Decision Making Was pt. sent in by a medical professional or institution (, PA, GLOVE PRINTER, urgent care, hospital, or group home...) When possible be specific @ -No Did you speak to anyone other than the patient for history (EMS, parent, family, police, friend...)? What history was obtained from this source @ -No Did you review nursing and triage notes (agree or disagree)? Why? @ -I reviewed and agree with nursing and triage notes Were old charts reviewed (outside hosp., previous admission, EMS record, old EKG, old radiological studies, urgent care reports/EKG's, group home records)? Report findings @ -No old charts were reviewed Differential Diagnosis (chest pain, altered mental status, abdominal pain women, abdominal pain men, vaginal bleeding, weakness, fever, dyspnea, syncope, headache, dizziness, GI bleed, back pain, seizure, CVA, palpatations, mental health, musculoskeletal)? @ -Urinary tract infection, STD, kidney stone EKG interpreted by me (3pts min.). @ -None X-rays interpreted by me (1pt min.). @ -None done CT interpreted by me (1pt min.). @ -None done U/S interpreted by me (1pt. min.). @ -None done What testing was considered but not performed or refused? (CT, X-rays, U/S, labs)? Why? @ -None What meds were considered but not given or refused? Why? @ -None Did you discuss the management of the patient with other professionals (professionals i.e. , PA, GLOVE PRINTER, lab, RT, psych nurse, social scientist, probate lawyer, teacher, ski patrol officer, wrapper caser)? Give summary @ -No Was smoking cessation discussed for >3mins.? @ -No Was critical care preformed (if so, how long)? @ -No Were there social determinants of health that impacted care today? How? (Homelessness, low income, unemployed, alcoholism, drug addiction, transp ortation, low edu. Level, literacy, decrease access to med. care, snf, rehab)? @ -No Was there de-escalation of care discussed even if they declined (Discuss DNR or withdrawal of care, Hospice)? DNR status @ -No What co-morbidities impacted this encounter? (DM, HTN, Smoking, COPD, CAD, Cancer, CVA, ARF, Chemo, Hep., AIDS, mental health diagnosis, sleep apnea, morbid obesity)? @ -None Was patient admitted / discharged? Hospital course, mention meds given and route, prescriptions, significant lab abnormalities, going to OR and other pertinent info. @ -Discharge. 24-year-old female presenting for dysuria x 1 month. Patient has been on for antibiotics for UTI over the past month. Patient is afebrile with no CVA tenderness. Patient is provided with IV fluids and Toradol. HOLISTIC SPECIALIST exam deferred as patient states she just had this done with vaginal swabs at urgent care and everything was negative. Lab work remarkable for elevated blood glucose at 205. White blood cell count 9, no lactic acidosis. Urinalysis reveals 3+ glucose, contaminated sample however not indicative of urinary tract infection. No blood to indicate kidney stone. Discussed results with patient. We discussed the possibility of glucose in urine contributing to symptoms. As there is no evidence to suggest urinary tract infection in urinary sample and patient has already underwent 4 courses of antibiotics, I we will hold off on treating with antibiotic at this time until culture returns. Advised to follow- up with a urologist for further evaluation. Appropriate return precautions discussed. Case was discussed with my ED attending Dr. Devries Undiagnosed new problem with uncertain prognosis? @ -No Drug Therapy requiring intensive monitoring for toxicity (Heparin, Nitro, Insulin, Cardizem)? @ -No Were any procedures done? @ -No Diagnosis/symptom? @ -dysuria Acute, or Chronic, or Acute on Chronic? @ -Acute Uncomplicated (without systemic symptoms) or Complicated (systemic symptoms)? @ -Uncomplicated Side effects of treatment? @ -No Exacerbation, Progression, or Severe Exacerbation? @ -No Poses a threat to life or bodily function? How? (Chest pain, [place], [place], pneumonia, PE, COPD, DKA, ARF, appy, cholecystitis, CVA, Diverticulitis, Homicidal, Suicidal, threat to staff... and all critical care pts) @ -No - Lab Data Result diagrams: 12/16/24 23:13 12/16/24 23:13 Lab Results 12/16/24 12/16/24 12/16/24 Range/Units 22:58 22:58 23:13 WBC 9.28 (4.50-10.00) 10*3/uL RBC 4.11 (4.10-5.20) 10*6/uL Hgb 12.8 (12.0-15.0) g/dL Hct 37.0 L (37.2-46.3) % MCV 90.0 (80.0-97.0) fL MCH 31.1 (27.0-32.0) pg MCHC 34.6 (32.0-37.0) g/dL Plt Count 410 (140-440) 10*3/uL MPV 9.6 (9.5-12.2) fL Immature Gran % (Auto) 0.2 % Neutrophils % 47.4 % Lymphocytes % 41.7 % Monocytes % 8.3 % Eosinophils % 1.8 % Basophils % 0.6 % Immature Gran # 0.02 (0.00-0.04) 10*3/uL Neutrophils # 4.39 (1.80-7.70) 10*3/uL Lymphocytes # 3.87 (0.90-5.00) 10*3/uL Monocytes # 0.77 (0.20-1.00) 10*3/uL Eosinophils # 0.17 (0.04-0.35) 10*3/uL Basophils # 0.06 (0.00-0.10) 10*3/uL Sodium (137-145) mmol/L Potassium (3.5-5.1) mmol/L Chloride (98-107) mmol/L Carbon Dioxide (22-30) mmol/L Anion Gap mmol/L BUN (7-17) mg/dL Creatinine (0.52-1.04) mg/dL Est GFR (CKD-EPI)AfAm (>60 ml/min/1.73 sqM) Est GFR (CKD-EPI)NonAf (>60 ml/min/1.73 sqM) Glucose (74-99) mg/dL Plasma Lactic Acid Chriss (0.7-2.0) mmol/L Calcium (8.4-10.2) mg/dL Total Bilirubin (0.2-1.3) mg/dL AST (14-36) U/L ALT (4-34) U/L Alkaline Phosphatase (38-126) U/L Total Protein (6.3-8.2) g/dL Albumin (3.5-5.0) g/dL Urine Color Light Yellow Urine Appearance Cloudy H (Clear) Urine pH 5.5 (5.0-8.0) Ur Specific [place] 1.026 (1.001-1.035) Urine Protein Trace H (Negative) Urine Glucose (UA) 3+ H (Negative) Urine Ketones Negative (Negative) Urine Blood Negative (Negative) Urine Nitrite Negative (Negative) Urine Bilirubin Negative (Negative) Urine Urobilinogen <2.0 (<2.0) mg/dL Ur Leukocyte Esterase Small H (Negative) Urine RBC 1 (0-5) /hpf Urine WBC 13 H (0-5) /hpf Ur Squamous Epith Cells 13 H (0-4) /hpf Urine Bacteria Rare H (None) /hpf Hyaline Casts 3 H (0-2) /lpf Urine Mucus Rare H (None) /hpf Urine HCG, Qual Not Detected (Not Detectd) 12/16/24 12/16/24 Range/Units 23:13 23:13 WBC (4.50-10.00) 10*3/uL RBC (4.10-5.20) 10*6/uL Hgb (12.0-15.0) g/dL Hct (37.2-46.3) % MCV (80.0-97.0) fL MCH (27.0-32.0) pg MCHC (32.0-37.0) g/dL Plt Count (140-440) 10*3/uL MPV (9.5-12.2) fL Immature Gran % (Auto) % Neutrophils % % Lymphocytes % % Monocytes % % Eosinophils % % Basophils % % Immature Gran # (0.00-0.04) 10*3/uL Neutrophils # (1.80-7.70) 10*3/uL Lymphocytes # (0.90-5.00) 10*3/uL Monocytes # (0.20-1.00) 10*3/uL Eosinophils # (0.04-0.35) 10*3/uL Basophils # (0.00-0.10) 10*3/uL Sodium 136 L (137-145) mmol/L Potassium 4.0 (3.5-5.1) mmol/L Chloride 104 (98-107) mmol/L Carbon Dioxide 25 (22-30) mmol/L Anion Gap 7 mmol/L BUN 17 (7-17) mg/dL Creatinine 0.58 (0.52-1.04) mg/dL Est GFR (CKD-EPI)AfAm >90 (>60 ml/min/1.73 sqM) Est GFR (CKD-EPI)NonAf >90 (>60 ml/min/1.73 sqM) Glucose 205 H (74-99) mg/dL Plasma Lactic Acid Chriss 1.5 (0.7-2.0) mmol/L Calcium 9.7 (8.4-10.2) mg/dL Total Bilirubin 0.6 (0.2-1.3) mg/dL AST 15 (14-36) U/L ALT 12 (4-34) U/L Alkaline Phosphatase 66 (38-126) U/L Total Protein 7.1 (6.3-8.2) g/dL Albumin 4.0 (3.5-5.0) g/dL Urine Color Urine Appearance (Clear) Urine pH (5.0-8.0) Ur Specific [place] (1.001-1.035) Urine Protein (Negative) Urine Glucose (UA) (Negative) Urine Ketones (Negative) Urine Blood (Negative) Urine Nitrite (Negative) Urine Bilirubin (Negative) Urine Urobilinogen (<2.0) mg/dL Ur Leukocyte Esterase (Negative) Urine RBC (0-5) /hpf Urine WBC (0-5) /hpf Ur Squamous Epith Cells (0-4) /hpf Urine Bacteria (None) /hpf Hyaline Casts (0-2) /lpf Urine Mucus (None) /hpf Urine HCG, Qual (Not Detectd) Disposition Clinical Impression: Dysuria Disposition: HOME SELF-CARE Condition: Stable Instructions (If sedation given, give patient instructions): Dysuria (ED) Additional Instructions: Follow-up with urologist as discussed. Please return to the Emergency Department if symptoms worsen or any other concerns. Prescriptions: Ketorolac [Toradol] 10 mg PO Q8HR #15 tab Is patient prescribed a controlled substance at d/c from ED?: No Referrals: None,Stated [Primary Care Provider] - 1-2 days Keshawn Wilson MD [STAFF PHYSICIAN] - 1-2 days Forms: Area PCPs Time of Disposition: 00:14
[2024-12-16] MEDS: SODIUM CHLORIDE 0.9% 1,000 ML IV STA (23:11)
[2024-12-16] MEDS: KETOROLAC 15 MG/ML 1 ML VIAL IVP STA (23:12)
[2024-12-16 23:20] LABS: Basophils # (A) 0.06 10*3/uL (0.00-0.10); Basophils % (A) 0.6 %; Eosinophils # (A) 0.17 10*3/uL (0.04-0.35); Eosinophils % (A) 1.8 %; HGB 12.8 g/dL (12.0-15.0); Lymphocytes # (A) 3.87 10*3/uL (0.90-5.00); Lymphocytes % (A) 41.7 %; MCH 31.1 pg (27.0-32.0); MCHC 34.6 g/dL (32.0-37.0); Mean Platelet Volume 9.6 fL (9.5-12.2); Monocytes # (A) 0.77 10*3/uL (0.20-1.00); Monocytes % (A) 8.3 %; Neutrophils # (A) 4.39 10*3/uL (1.80-7.70); Neutrophils % (A) 47.4 %; Platelet Count 410 10*3/uL (140-440); RBC 4.11 10*6/uL (4.10-5.20); RDW 11.9 % (11.5-14.5); WBC 9.28 10*3/uL (4.50-10.00)
[2024-12-16 23:33] LABS: ALT 12 U/L (4-34); AST 15 U/L (14-36); African American GFR (CKD) >90 (>60 ml/min/1.73 sqM); Alkaline Phosphatase 66 U/L (38-126); Anion Gap 7 mmol/L; Blood Urea Nitrogen 17 mg/dL (7-17); Calcium 9.7 mg/dL (8.4-10.2); Carbon Dioxide 25 mmol/L (22-30); Chloride 104 mmol/L (98-107); Glucose 205 mg/dL (74-99); Non-African American GFR(CKD) >90 (>60 ml/min/1.73 sqM); Sodium 136 mmol/L (137-145); Total Bilirubin 0.6 mg/dL (0.2-1.3); Total Protein 7.1 g/dL (6.3-8.2)
[2024-12-16 23:39] LABS: Appearance,Urine Cloudy (Clear); Bacteria,Urine Rare /hpf; Bilirubin,Urine Negative (Negative); Blood,Urine Negative (Negative); Color,Urine Light Yellow; Glucose,Urine (UA) 3+ (Negative); Hyaline Casts,Urine 3 /lpf (0-2); Ketones,Urine Negative (Negative); Leukocyte Esterase,Urine Small (Negative); Mucus,Urine Rare /hpf; Nitrite,Urine Negative (Negative); PH, Urine 5.5 (5.0-8.0); Protein,Urine Trace (Negative); RBC,Urine 1 /hpf (0-5); Specific Gravity,Urine 1.026 (1.001-1.035); Squamous Epithelial Cell,Urine 13 /hpf (0-4); Urobilinogen,Urine <2.0 mg/dL (<2.0); WBC,Urine 13 /hpf (0-5)
[2024-12-17 00:31] VITALS: BP 152/91; PULSE 90; RESP 20; TEMP 98.5
== END 2024-12-17 00:28 | disposition home or self-care (01) ==
LOC: EC 22:20
DX: R30.0 Dysuria (principal)
CPT/HCPCS: 36415; 80053; 83605; 85025; 81001; 81025; 87086; 99283; 96374; 96361; J1885